=== PATIENT | male | born 1975 | race Caucasian/White ===

== ENCOUNTER 2021-12-31 11:59 | Outpatient (REF) | payer MEDICARE, MEDICAID, SELFPAY ==
--- NOTE | ~2021-12-31 | XR_ITS ---
EXAMINATION: XR LUMBOSACRAL SPINE CLINICAL INFORMATION: Pain COMPARISON: Previous lumbar spine MRI most recent 2007 TECHNIQUE: Three views of the lumbosacral spine. FINDINGS: There is spondylolysis and spondylolisthesis at L5-S1 that appears unchanged. There is a mild to moderate compression fracture of the L1 vertebral body that appears unchanged. There may be an old mild T12 vertebral body compression fracture that appears unchanged as well. No acute fracture or dislocation is seen. There is degenerative disc disease at L5-S1. There is lower lumbar spine facet arthritis. XR/XR lumbar spine 2-3V IMPRESSION: Old L5-S1 spondylolysis, spondylolisthesis and degenerative disc disease similar to previous MRI. Old mild to moderate L1 and mild T12 vertebral body compression fractures. Lower lumbar spine facet arthritis.
[2021-12-31 13:43] LABS: Hematocrit 42.1 % (42.0-52.0); Hemoglobin 14.2 g/dl (14.0-18.0); Mean Corpuscular HGB Conc 33.7 g/dl (31.0-36.0); Mean Corpuscular Hemoglobin 30.9 pg (27.0-33.0); Mean Corpuscular Volume 91.7 fL (80.0-98.0); Mean Platelet Volume 10.9 fL (9.4-12.4); Platelet Count 256 X10*3/uL (160-400); Red Blood Count 4.59 X10*6/uL (4.60-5.80); Red Cell Distribution Width 12.8 % (11.0-16.0); White Blood Count 5.5 X10*3/uL (4.8-10.8)
[2021-12-31 13:52] LABS: Estimated Average Glucose 114 mg/dL; Hemoglobin A1c % 5.6 %
[2021-12-31 14:05] LABS: Alanine Aminotransferase 40 U/L (0-40); Albumin Level 4.6 g/dL (3.5-5.0); Alkaline Phosphatase 64 U/L (39-117); Anion Gap 12 (12-20); Aspartate Amino Transferase 19 U/L (5-37); Bilirubin Total 1.2 mg/dL (0.0-1.0); Blood Urea Nitrogen 13 mg/dL (9-16); Calcium 9.6 mg/dL (8.4-10.2); Carbon Dioxide 28 mmol/L (22-29); Chloride 104 mmol/L (96-108); Cholesterol 175 mg/dL; Estimated Glomerular Filt Rate > 60; Glucose Fasting 109 mg/dL (60-99); HDL Cholesterol 34 mg/dL; LDL Cholesterol Calculated 123 mg/dl; Potassium 4.2 mmol/L (3.3-5.1); Sodium 140 mmol/L (135-145); Total Protein 7.4 g/dL (6.5-8.0); Triglycerides 92 mg/dL
[2021-12-31 14:19] LABS: TSH reflex Free T4 1.43 uIU/mL (0.32-4.0)
== END 2021-12-31 12:00 | disposition home or self-care (01) ==
LOC: HO.LAB 11:59
PROVIDERS: PCP Physician Assistant; Visit Provider Physician Assistant
DX: M54.50 Low back pain, unspecified (principal); Z13.29 Encounter for screening for other suspected endocrine disorder; Z13.1 Encounter for screening for diabetes mellitus; Z13.220 Encounter for screening for lipoid disorders
CPT/HCPCS: 36415; 72100; 80053; 80061; 83036; 84443; 85027

== ENCOUNTER 2023-05-01 08:29 | Emergency (ER) | payer OTHER, SELFPAY ==
--- NOTE | ~2023-05-01 | XR_ITS ---
EXAMINATION: XR FOOT, RIGHT CLINICAL INFORMATION: Right foot injury. Pain. COMPARISON: None available. TECHNIQUE: AP, lateral, and oblique views of the right foot. FINDINGS: No displaced fracture. No dislocation. No joint space narrowing. Tiny marginal osteophytes at the 1st metatarsophalangeal joint and hallux sesamoids. No osseous erosion. No abnormal soft tissue calcification. Bone island within the distal tibia. XR/XR foot RT min 3V IMPRESSION: 1. No displaced fracture or dislocation. 2. Minimal degenerative arthritis at the 1st metatarsophalangeal joint and hallux sesamoids.
[2023-05-01 08:37] VITALS: BP 129/83; PULSE 84; RESP 16; TEMP 36.9; O2SAT 95; BMI 44.3
--- NOTE | 2023-05-01 08:43 | ED_ITS ---
HPI - Extremity Injury (Lower) General Chief Complaint: Extremity Injury, Lower Stated Complaint: R foot injury Time Seen by Provider: 05/01/23 08:38 Source: patient Mode of arrival: ambulatory Limitations: no limitations History of Present Illness HPI Narrative: 48 yo male with history of GERD here with complaints of right foot/heel pain after slamming his foot down on the ground last evening. Pain with WB. No weakness, numbness, tingling. Related Data Previous Rx's Medication Instructions Recorded omeprazole 20 mg capsule,delayed 20 mg PO DAILY #90 caps 11/06/22 release Allergies Allergy/AdvReac Type Severity Reaction Status Date / Time No Known Allergies Allergy Verified 11/18/22 11:16 [No Known Allergies*] Review of Systems Review of Systems: Yes all other systems are reviewed and are negative Constitutional: Constitutional: Reports no additional constitutional complaints, Denies body ache(s), Denies chills, Denies fever(s), Denies headache(s) and Denies weakness Eyes: Eyes: Reports no additional eye complaints and Denies change in vision ENT: Reports system reviewed and no additional complaints, except as documented, Denies dizziness, Denies headache(s), Denies nasal congestion, Denies nasal discharge and Denies neck pain Cardiovascular: Cardiovascular: Reports no additional cardiovascular complaints, Denies chest pain, Denies leg edema and Denies dyspnea Respiratory: Respiratory: Reports no additional respiratory complaints, Denies cough and Denies dyspnea Gastrointestinal: Gastrointestinal: Reports no additional gastrointestinal complaints, Denies abdominal pain, Denies diarrhea, Denies nausea and Denies vomiting Genitourinary: Genitourinary: Denies urinary incontinence Musculoskeletal: Musculoskeletal: Reports no additional musculoskeletal complaints, Denies back pain, Reports arthralgias, Reports joint swelling, Denies neck pain, Denies numbness and Denies tingling Integumentary/Breasts: Skin/Breast: Reports system reviewed and no additional complaints, except as docu and Denies rash Neurologic: Reports system reviewed and no additional complaints, except as documented, Denies Abnormal speech present, Denies dizziness, Denies headache(s), Denies numbness, Denies tingling and Denies weakness PMFSH Past Medical History Attestation statement: The following information was validated with the patient. Source: old records reviewed and nursing notes reviewed Surgical History History of lumbar fusion Family History Family History Father OCD (obsessive compulsive disorder) History of ETOH abuse Mother Heart murmur, aortic Brother In good health Daughter In good health Social History Social History Housing: Apartment Alcohol intake: never Patient Tobacco Use Status: Never used Tobacco e-Cigarette/Vaping Use: Never Used Second Hand Smoke Exposure: No Advance Directives: No Advance Directives Information Provided: Yes service: No Current occupational status: disabled Cognitive needs: No Hearing needs: No Vision needs: No Physical Exam Vital Signs: Vital Signs: Last Vital Signs Temp 98.4 F 05/01/23 08:37 Pulse 84 05/01/23 08:37 Resp 16 05/01/23 08:37 BP 129/83 05/01/23 08:37 Pulse Ox 95 05/01/23 08:37 O2 Del Method Room Air 05/01/23 08:37 BMI result Body Mass Index 44.3 Const: General: cooperative, healthy appearing, comfortable and no acute distress Orientation/consciousness: patient oriented x3 Limitations: no limitations HEENT: Head: Yes normal to inspection Ears: hearing grossly normal bilaterally General nose exam: Normal external nose present Face and sinus: Yes normal facial exam Mouth: Normal oral and palatal mucosa present Throat: Yes posterior oropharynx normal Eyes: General: appearance normal, both eyes and all related structures Pupils: Equal, round and reactive pupils present Neck: Neck: Yes normal visual inspection Chest: Chest palpation & inspection: normal inspection of the chest Resp: Effort & Inspection: normal respiratory effort Auscultation: clear to auscultation bilaterally Cardio: Rate: regular rate Rhythm: regular rhythm Peripheral pulses: Peripheral pulses 2+ throughout GI: Inspection: Yes normal to inspection Palpation (GI): Soft to palpation and nontender Auscultation: normal bowel sounds Back/Spine/Pelvis: Thoracic/Lumbar Spine: thoracic and lumbar spine normal to inspection Skin: General skin exam: no rashes or lesions noted Neuro: General: patient oriented x3, no focal motor deficits and normal sensation to monofilament Cranial nerves: Yes Equal, round and reactive pupils present Cognition (Neuro): normal cognition Speech: No Abnormal speech present Gait exam (Neuro): Normal gait present Motor exam (neuro): 5/5 motor strength present throughout Extrem: Other: Pain on palpation over right heel. No swelling/ecchymosis. FROM of the foot/ankle right side. No posterior calf pain. Negative almean test. Normal sensation of the foot. 2+ DP/PT pulses General: Yes normal to inspection Course Course Course Narrative: X-ray shows no bony abnormality. Likely contusion. Recommend RICE, supportive care at home. He should return for worsening symptoms/signs. Comfortable with plan for discharge home. Medical Decision Making Medical Decision Making [facility] Narrative: 48 yo male here with complaints of right heel pain after slamming his foot on the ground last evening now pain with WB Will check x-rays Differential Diagnosis Differential Diagnoses: The differential diagnosis associated with the presentation includes contusion, fracture Independent Interpretation I performed an independent interpretation of an: Plain X-Ray Interpretation: I indepedentely reviewed the x-ray and agree with the rad report Radiology Impression Discussion of test interpretation with radiology: I have reviewed the radiologist's reading. Radiologist Impression: [place] [id number] XRay Report Signed Patient: Compa Cantrell MR#: [id number] : 1975 Acct:[id number] Age/Sex: 48 / M ADM Date: 05/01/23 Loc: HO.ED Attending Dr: Ordering Physician: Stephani Pennington MD Date of Service: 05/01/23 Procedure(s): XR foot RT min 3V Accession Number(s): [id number] cc: Stephani Pennington MD~ EXAMINATION: XR FOOT, RIGHT CLINICAL INFORMATION: Right foot injury. Pain.? COMPARISON: None available.? TECHNIQUE: AP, lateral, and oblique views of the right foot. FINDINGS: No displaced fracture. No dislocation. No joint space narrowing. Tiny marginal osteophytes at the 1st metatarsophalangeal joint and hallux sesamoids. No osseous erosion. No abnormal soft tissue calcification. Bone island within the distal tibia.? XR/XR foot RT min 3V IMPRESSION: 1. No displaced fracture or dislocation. 2. Minimal degenerative arthritis at the 1st metatarsophalangeal joint and hallux sesamoids. Procedures Orthopedic Splinting/Casting Injury #1: Side: right Upper Extremity Immobilizer: Jude wrap Other Orthopedic Equipment: crutches Discharge Plan Discharge Clinical Impression: Contusion of foot, right Patient Disposition: Home, Self-Care Instructions: Foot Contusion (ED) Additional Instructions: Ice to the area Elevation Jude wrap, crutches as needed Motrin or tylenol for pain as needed Prescriptions: No Action omeprazole 20 mg capsule,delayed release(DR/EC) 20 mg PO DAILY Qty: 90 2RF Referrals: Maxime Frias PA-C [Primary Care Provider] - 10 days Interventions: ED Discharge Assessment Last Done: 05/01/23 09:58 Discharge Date/Time: 05/01/23 09:58
--- NOTE | 2023-05-01 09:58 | PC.NURSE ---
pt cleared for discharge, maureen wrap and crutches given as ordered. discharge instructions reviewed with pt.
== END 2023-05-01 09:58 | disposition home or self-care (01) ==
PROVIDERS: Emergency Provider Student in an Organized Health Care Education/Training Program; PCP Physician Assistant
DX: S90.31XA Contusion of right foot, initial encounter (principal); M79.671 Pain in right foot; X58.XXXA Exposure to other specified factors, initial encounter; Y93.9 Activity, unspecified; Y92.9 Unspecified place or not applicable; Y99.9 Unspecified external cause status
CPT/HCPCS: 29515; 73630; 99282; 99283

== ENCOUNTER 2023-05-03 13:30 | Outpatient (AMB) | payer OTHER, SELFPAY ==
[2023-05-03 13:32] VITALS: BP 116/80; PULSE 85; O2SAT 95; BMI 36.3
--- NOTE | 2023-05-03 13:32 | AM.OFFVISMDC ---
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 Patient has a past medical history significant for GERD, obesity, history of seizure-like activity. Today we discussed the [place] of care was given a MOLST form. Patient is interested in getting colon cancer screening with colonoscopy. Laboratory Tests 12/31/21 12/31/21 12:28 12:28 Fasting Glucose 109 H Hemoglobin A1c % 5.6 Cholesterol 175 LDL Cholesterol, C alc 123 HPI Comments History of Present Illness Details reviewed past medical history- yes reviewed surgical / hospitalization history- yes reviewed current medications- yes reviewed family history- yes home safety throw rugs? grab bars? raised toilet seat? working smoke detectors? activities of daily living difficulty bathing or showering? difficulty dressing? difficulty using the toilet? difficulty getting in and out of bed? difficulty walking? receives help from other person's with any of the above tasks? instrumental activities of daily living uses telephone - gets to place out of walking distance- go shopping for groceries- repairs own meals- does own minor home maintenance- does own laundry- does own housework- manages own money- currently takes medication- end of life planning discussed advanced directives- yes advanced directives on file? discussed wishes expressed in advanced directives. fall risk have you had any falls with injuries in the past year? have you had 2 or more falls in the past year? fall risk assessment: [facility] Surgical History History of lumbar fusion Family History Father OCD (obsessive compulsive disorder) History of ETOH abuse Mother Heart murmur, aortic Brother In good health Daughter In good health Social History Housing: Apartment Alcohol intake: never Patient Tobacco Use Status: Never used Tobacco e-Cigarette/Vaping Use: Never Used Second Hand Smoke Exposure: No service: No Current occupational status: disabled Cognitive needs: No Hearing needs: No Vision needs: No Questionnaire Medicare Wellness Checkup What gender do you identify with?: male (48) During the past 4 weeks, how much have you been bothered by emotional problems such as feeling anxious, depressed, irritable, sad or downhearted, and blue?: not at all During the past 4 weeks, has your physical & emotional health limited your social activities with family, friends, neighbors, or groups?: not at all During the past 4 weeks, how much bodily pain have you generally had?: no pain During the past 4 weeks, was someone available to help you if you needed & wanted help?: no, not at all During the past 4 weeks, what was the hardest physical activity you could do for at least 2 minutes?: moderate Can you get to places out of walking distance without help? (For eg., can you travel alone on buses, taxis or drive your car?): Yes Can you go shopping for groceries or clothes without someone's help?: Yes Can you prepare your own meals?: Yes Can you do your housework without help?: Yes Because of any health problems, do you need the help of another person with your personal care needs such as eating, bathing, dressing or getting around the house?: No Can you handle your own money without help?: Yes During the past 4 weeks, how would you rate your health in general?: fair During the past 4 weeks how have things been going for you?: pretty well Are you having difficulties driving your car?: no Do you always fasten your seat belt when you are in a car?: yes, sometimes During past 4 weeks, have you been bothered by the following: never: Falling or dizzy when standing up, Sexual problems?, Trouble eating well?, Teeth or denture problems? and Problems using the telephone? and sometimes: Tiredness or fatigue? Have you fallen 2 or more times in the past year?: Yes Are you afraid of falling?: No Are you a smoker?: no During the past 4 weeks, how many drinks of wine, beer, or other alcoholic beverages did you have?: no alcohol at all Do you exercise for about 20 minutes 3 or more times a week?: yes, most of the time Have you been given information to help with the following?: yes: Hazards in your house that might hurt you? and yes: Keeping track of your medications? How often do you have trouble taking medicines the way you have been told to take them?: I always take medicine as prescribed How confident are you that you can control & manage most of your health problems?: very confident What is your race?: White Mini Mental State Exam (MMSE) Orientation What is the (year) (season) (date) (day) (month)?: year and season Where are we (state) (county) (town or city) (hospital) (floor)?: town or city Score Score: 3 Activity of Daily Living Bathing - sponge bath, tub bath or shower: receives no assistance (gets in/out by self, if usual bathing means Dressing - getting clothes from closets & drawers, including inner/outer garments & fasteners.: gets clothes & gets completely dressed without help Toileting - going to the 'toilet room' for urine/bowel elimination & cleaning self/arranging clothes: goes to toilet room, cleans self, arranges clothes without help Transfer: moves in & out of bed and chair without help (may use support object) Continence: controls urination/bowel movements completely by self Feeding: feeds self without help Total Score: 0 Information obtained from: patient Using telephone: independent Traveling: independent Shopping: independent Preparing meals: independent Housework: independent Taking medicine: independent Managing money: independent PHQ-9 Over the last 2 weeks, how often have you been bothered by any of the following problems? 1. Little interest or pleasure in doing things: not at all 2. Feeling down, depressed, or hopeless: not at all 3. Trouble falling or staying asleep, or sleeping too much: not at all 4. Feeling tired or having little energy: not at all 5. Poor appetite or overeating: not at all 6. Feeling bad about yourself - or that you are a failure or have let yourself or your family down: not at all 7. Trouble concentrating on things, such as reading the newspaper or watching television: not at all 8. Moving or speaking so slowly that other people could have noticed. Or the opposite - being so fidgety or restless that you have been moving around a lot more than usual: not at all 9. Thoughts that you would be better off or of hurting yourself in some way: not at all Total score: 0 Depression Screening Interpretation: Negative 76406 - PHQ-9 Billing: Yes Source: Developed by Drs. Junior Bee, Trinh Quesada, Clifford Hernandez and colleagues, with an educational elmira from [employer]. PHQ-2/PHQ-9 PHQ-2 Over the last 2 weeks, how often have you been bothered by any of the following problems? 1. Little interest or pleasure in doing things: not at all 2. Feeling down, depressed, or hopeless: not at all Total score: 0 If score is 3 or greater, continue 3. Trouble falling or staying asleep, or sleeping too much: not at all 4. Feeling tired or having little energy: not at all 5. Poor appetite or overeating: not at all 6. Feeling bad about yourself - or that you are a failure or have let yourself or your family down: not at all 7. Trouble concentrating on things, such as reading the newspaper or watching television: not at all 8. Moving or speaking so slowly that other people could have noticed. Or the opposite - being so fidgety or restless that you have been moving around a lot more than usual: not at all 9. Thoughts that you would be better off or of hurting yourself in some way: not at all Total score: 0 10. If you checked off any problems, how difficult have those problems made it for you to do your work, take care of things at home, or get along with other people?: not difficult at all 0-4 None-Minimal, 5-9 Mild, 10-14 Moderate, 15-19 Moderately Severe, 20-27 Severe Source: Developed by Drs. Junior Bee, Trinh Quesada, Clifford Hernandez and colleagues, with an educational elmira from [employer]. Thrive Questionnaire Date Thrive assessed: 05/03/23 I am a: Patient What is your living situation today?: I have a steady place to live Within the past 12 months, did the food you bought not last and you didn't have the money to get more?: Never true Within the past 12 months, did you worry whether your food would run out before you got money to buy more?: Never true Do you have trouble paying for medicines?: No Do you have trouble getting transportation to medical appointments?: No Do you have trouble paying your heating and electricity bill?: No Do you have trouble taking care of your child, family member or friend?: No Do you have trouble with day-to-day activities such as bathing, preparing meals, shopping, managing finances, etc.?: No Are you currently unemployed and looking for a job?: No Are you interested in more education?: No Please select the resources that you would like help with: None Currently or been in a relationship where the following occur: no concerns reported ANI-7 AMB Questionnaire ANI-7 Date ANI - 7 assessed: 05/03/23 Feeling nervous, anxious, or on edge: 0 = Not at all Not being able to stop or control worryin = Not at all Worrying too much about different things: 0 = Not at all Trouble relaxin = Not at all Being so restless that it is hard to sit still: 0 = Not at all Becoming easily annoyed or irritable: 0 = Not at all Feeling afraid as if something awful might happen: 0 = Not at all Total ANI-7 score (0-4 normal; 5-9 mild; 10-14 moderate; 15-21 severe): 0 Source: Developed by Drs. Junior Bee, Trinh Quesada, Clifford Hernandez and colleagues, with an educational elmira from [employer]. ANI-7 Assessment Billing ANI-7 Assessment Tool: ANI-7 Assessment 19432 Physical Exam Vital Signs: Oxygen Delivery Method Room Air 05/03/23 13:32 BMI result Body Mass Index 36.3 HEENT Other: hearing screening whisper test- pass Eyes Other: vision screening- Other: urinary incontinence? no Neuro Other: balance Romberg- normal tandem walk test- able walk-in turned test- able rise from sit to stand- within 2 seconds Assessment & Plan Assessment & Plan (1) Encounter for annual wellness visit (AWV) in Medicare patient: Code(s): Z00.00 - Encounter for general adult medical examination without abnormal findings (2) Colon cancer screening: Code(s): Z12.11 - Encounter for screening for malignant neoplasm of colon Plan: Willing to do colonoscopy Orders: Referrals Gastroenterology Referral Z12.11 - Encounter for screening for malignant neoplasm of colon Quality Reporting (2019) Depression/Bipolar (159/160/161/177) PHQ-9: Total score: 0 Coding Level of Care Code Medicare First (G0438) Diagnoses Encounter for annual wellness visit (AWV) in Medicare patient Z00.00 Colon cancer screening Z12.11 CPT Codes Advance Care Planning - Time spent: 1-15 minutes, not on file ([id number]) Additional Codes ANI-7 Assessment Billing - ANI-7 Assessment Tool: ANI-7 Assessment 51252 ([id number]) Advance Care Planning Advance Care Planning discussion: Declined forms Time spent: 1-15 minutes, not on file
== END 2023-05-03 14:09 | disposition home or self-care (01) ==
PROVIDERS: Visit Provider Physician Assistant
DX: Z00.00 Encounter for general adult medical examination without abnormal findings (principal); Z12.11 Encounter for screening for malignant neoplasm of colon; Z71.89 Other specified counseling
CPT/HCPCS: 1124F; G0438

== ENCOUNTER 2023-08-10 13:45 | Outpatient (AMB) | payer OTHER, MEDICAID, SELFPAY ==
--- NOTE | 2023-08-10 13:59 | A.OFFPC_ITS ---
Vital Signs 08/10/23 14:01 Height 5 ft 3 in Weight 208 lb 6 oz BMI 36.9 BP 122/84 Blood Pressure Location Lt brachial Position Sitting Pulse 90 Pulse Source Pulse Oximeter Pulse Oximetry (%) 98 Oxygen Delivery Method Room Air Intake Visit Reasons: 3 month f/u Intake Note: Pt is here for 3 month routine F/U. Surgical Dental Assistant Required: No Accompanied by: Daughter Allergies No Known Allergies [No Known Allergies*] Allergy (Verified 08/10/23 14:06) Medication List - Last Reconciled 08/10/23 by Maxime Frias PA-C omeprazole 20 mg PO DAILY Tobacco use date assessed: 11/18/22 Dental Screening Dental Screen Date: 08/10/23 Did you have a dental visit in the last 12 months?: No Did you have a dental problem in the last 6 months where you did not have access to dental care?: No Was dental information given to patient?: Patient declined HPI 3 month f/u HPI Details Patient is a 48-year-old male here today for follow-up visit. Patient has a past medical history significant for GERD and generalized anxiety disorder. .. GERD: Patient's GERD symptoms have been more evident at a slightly and has been taking more omeprazole that prescribed. Will increase his dose of omeprazole 40 mg.. . Tremor: Has had essential tremor over the last several years. Has use propanolol in the past that did settle down his tremor and would like a refill on this. He was referred to neurology though has failed to make an appointment. [facility] Surgical History History of lumbar fusion Family History Father OCD (obsessive compulsive disorder) History of ETOH abuse Mother Heart murmur, aortic Brother In good health Daughter In good health Social History Housing: Apartment Alcohol intake: never Patient Tobacco Use Status: Never used Tobacco e-Cigarette/Vaping Use: Never Used Second Hand Smoke Exposure: No service: No Current occupational status: disabled Cognitive needs: No Hearing needs: No Vision needs: No Questionnaire Thrive Questionnaire Date Thrive assessed: 05/03/23 ANI-7 AMB Questionnaire ANI-7 Date ANI - 7 assessed: 05/03/23 Source: Developed by Drs. Junior Bee, Trinh Quesada, Clifford Hernandez and colleagues, with an educational elmira from [employer]. Review of Systems Const Denies headache(s) Eyes Denies loss of vision ENT Denies vertigo, Denies dizziness, Denies headache(s) and Denies sore throat Card Denies chest pain, Denies leg edema and Denies lightheadedness Resp Denies cough, Denies hemoptysis and Denies wheezing GI Denies abdominal pain, Denies melena, Denies constipation, Denies diarrhea and Denies vomiting Denies dysuria, Denies urinary frequency and Denies urinary urgency Musc Denies arthralgias, Denies joint swelling, Denies numbness and Denies tingling Neuro Denies Abnormal speech present, Denies behavioral changes, Denies vertigo, Denies dizziness, Denies headache(s), Denies loss of vision, Denies memory loss, Denies numbness and Denies tingling Psych Denies anxiety, Denies behavioral changes, Denies depression, Denies memory loss and Denies panic attacks Cedric/Lymph Denies easy bleeding and Denies easy bruising Aller/Immun Denies wheezing Physical exam (Primary Care) Vital Signs: Last Vital Signs Pulse 90 08/10/23 14:01 BP 122/84 08/10/23 14:01 Pulse Ox 98 08/10/23 14:01 Oxygen Delivery Method Room Air 08/10/23 14:01 BMI result Body Mass Index 36.9 Tobacco/Smoking Status: Tobacco use Status Tobacco use date assessed 11/18/22 08/10/23 14:00 Patient Tobacco Use Status Never used Tobacco 08/10/23 14:00 e-Cigarette/Vaping Use Never Used 08/10/23 14:00 Thrive Assessment: Date of Thrive Assessment Date Thrive assessed 05/03/23 08/10/23 14:00 Const General: healthy appearing, no acute distress, alert and awake Nutritional Appearance: well nourished Orientation/consciousness: oriented to person, oriented to place and oriented to time HENMT Ears: TM's normal bilaterally General nose exam: Normal nasal mucous membranes and turbinates present Eyes Conjunctivae: conjunctivae normal Sclerae: sclerae normal Pupils: Equal, round and reactive pupils present Neck Neck: Yes no lymphadenopathy and Yes no JVD Thyroid: Thyroid normal Carotids: no bruits Resp Effort & Inspection: normal respiratory effort and not tachypneic Auscultation: no crackles, no rales, no rhonchi and no wheezes Cardio Rate: regular rate Rhythm: regular rhythm Heart sounds: no murmurs and normal S1 and S2 GI Palpation (GI): Soft to palpation, nontender, no hepatomegaly and no splenomegaly Auscultation: normal bowel sounds Skin General skin exam: no rashes or lesions noted and dry skin Neuro General: oriented to person, oriented to place and oriented to time Cranial nerves: Yes Equal, round and reactive pupils present Speech: No Abnormal speech present Gait exam (Neuro): Normal gait present Motor exam (neuro): no tremor noted Extrem Right upper extremity: full ROM Left upper extremity: full ROM Right lower extremity: full ROM; no edema Left lower extremity: full ROM; no edema Psych Mental Status: mental status grossly normal Speech and movement: Normal speech and movement present Affect: normal affect Attitude: cooperative Thought process: Normal thought process present Assessment and Plan Assessment & Plan (1) GERD (gastroesophageal reflux disease): Code(s): K21.9 - Gastro-esophageal reflux disease without esophagitis Qualifiers: Esophagitis presence: without esophagitis Qualified Code(s): K21.9 - Gastro-esophageal reflux disease without esophagitis Plan: Reports his GERD symptoms have been at evident even with the use of omeprazole 20 mg. Will increase his dose of omeprazole to 40 mg. Advised him to follow-up with GI about his colonoscopy and perhaps getting an endoscopy. Advised on avoiding culprit foods. He otherwise denies any smoking drinking (2) Tremor: Code(s): R25.1 - Tremor, unspecified Plan: Has noted in the central tremor to which propanolol has helped him in the past. He would like a refill on this medication. (3) Screening for diabetes mellitus (DM): Code(s): Z13.1 - Encounter for screening for diabetes mellitus Orders: Orders Comprehensive [place]. Panel Fast Today Z13.1 - Encounter for screening for diabetes mellitus Complete Blood Count no Diff Today K21.9 - Gastro-esophageal reflux disease without esophagitis Prostate Specific Antigen Scr Today K21.9 - Gastro-esophageal reflux disease without esophagitis, Z12.5 - Encounter for screening for malignant neoplasm of prostate Medications: New omeprazole 40 mg PO DAILY 30 days 30 caps 3RF K21.9 - Gastro-esophageal reflux disease without esophagitis propranolol 20 mg PO BID 60 tabs 1RF 30 days R25.1 - Tremor, unspecified Discontinued omeprazole Discontinued Reason: Doctor's Order 20 mg PO DAILY 90 caps 2RF Coding Level of Care Code Est Pt Level 4 (89613) Diagnoses Gastroesophageal reflux disease without esophagitis K21.9 Esophagitis presence: without esophagitis Tremor R25.1 Screening for diabetes mellitus (DM) Z13.1
[2023-08-10 14:01] VITALS: BP 122/84; PULSE 90; O2SAT 98; BMI 36.9
== END 2023-08-10 14:20 | disposition home or self-care (01) ==
PROVIDERS: PCP Physician Assistant; Visit Provider Physician Assistant
DX: K21.9 Gastro-esophageal reflux disease without esophagitis (principal); R25.1 Tremor, unspecified; Z13.1 Encounter for screening for diabetes mellitus
CPT/HCPCS: 99214

== ENCOUNTER 2023-08-31 10:51 | Outpatient (REF) | payer OTHER, SELFPAY ==
[2023-08-31 11:42] LABS: Hematocrit 42.8 % (42.0-52.0); Hemoglobin 14.7 g/dl (14.0-18.0); Mean Corpuscular HGB Conc 34.3 g/dl (31.0-36.0); Mean Corpuscular Hemoglobin 30.8 pg (27.0-33.0); Mean Corpuscular Volume 89.5 fL (80.0-98.0); Mean Platelet Volume 10.6 fL (9.4-12.4); Platelet Count 258 X10*3/uL (160-400); Red Blood Count 4.78 X10*6/uL (4.60-5.80); Red Cell Distribution Width 12.7 % (11.0-16.0); White Blood Count 6.1 X10*3/uL (4.8-10.8)
[2023-08-31 12:18] LABS: Alanine Aminotransferase 29 U/L (0-40); Albumin Level 4.4 g/dL (3.5-5.0); Alkaline Phosphatase 74 U/L (39-117); Anion Gap 8 (12-20); Aspartate Amino Transferase 18 U/L (5-37); Bilirubin Total 0.7 mg/dL (0.0-1.0); Blood Urea Nitrogen 6 mg/dL (9-16); Calcium 9.4 mg/dL (8.4-10.2); Carbon Dioxide 30 mmol/L (22-29); Chloride 106 mmol/L (96-108); Estimated Glomerular Filt Rate > 60; Glucose Fasting 109 mg/dL (60-99); Potassium 4.3 mmol/L (3.3-5.1); Sodium 140 mmol/L (135-145); Total Protein 7.2 g/dL (6.5-8.0)
[2023-08-31 12:30] LABS: Prostate Specific Antigen Scr 0.46 ng/mL (<0.05-4.0)
== END 2023-08-31 10:52 | disposition home or self-care (01) ==
LOC: HO.LAB 10:51
PROVIDERS: PCP Physician Assistant; Visit Provider Physician Assistant
DX: K21.9 Gastro-esophageal reflux disease without esophagitis (principal); Z13.1 Encounter for screening for diabetes mellitus; Z12.5 Encounter for screening for malignant neoplasm of prostate
CPT/HCPCS: 36415; 80053; 84153; 85027

== ENCOUNTER 2023-12-20 17:31 | Emergency (ER) | payer OTHER, SELFPAY ==
--- NOTE | 2023-12-20 | ECG_ITS ---
Test Reason : CHEST PAIN Blood Pressure : / mmHG Vent. Rate : 088 BPM Atrial Rate : 088 BPM P-R Int : 128 ms QRS Dur : 084 ms QT Int : 344 ms P-R-T Axes : 056 036 017 degrees QTc Int : 416 ms Normal sinus rhythm Normal ECG When compared with ECG of 30-MAY-2019 12:04, No significant change was found Referred By: Generic ED Physician Electronically Signed By:Wesley Truong
--- NOTE | ~2023-12-20 | XR_ITS ---
EXAMINATION: XR CHEST CLINICAL INFORMATION: Pain. COMPARISON: Chest radiograph 11/12/2010. TECHNIQUE: 2 views of the chest were obtained. FINDINGS: Normal heart size. Low lung volumes with mild diffuse bronchovascular crowding. No focal consolidation, pleural effusion or pneumothorax. No evidence of pulmonary edema. No acute osseous findings. XR/XR chest 2V IMPRESSION: Low lung volumes with bronchovascular crowding. No focal consolidation, pleural effusion or pneumothorax.
--- NOTE | ~2023-12-20 | CT_ITS ---
EXAMINATION: CT CERVICAL SPINE WITHOUT CONTRAST CLINICAL INFORMATION: Radiculopathy. COMPARISON: No similar priors. TECHNIQUE: Contiguous axial imaging was performed of the cervical spine without intravenous administration of contrast. Coronal and sagittal reformats were obtained at the acquisition workstation. This CT examination was performed using dose optimization techniques as appropriate, variously including the following: *Automated exposure control *Adjustment of mA and/or kV according to patient size (this includes techniques or standardized protocols for targeted exams where dose is matched to indication/reason for exam; i.e. extremities or head) *Use of iterative reconstruction technique DLP: 510 mGy-cm FINDINGS: The atlantooccipital and atlantoaxial articulations remain well aligned. Straightening of the normal cervical lordosis. Trace anterolisthesis of C4 on C5. Moderate to severe intervertebral disc height loss at C3-C4. Moderate intervertebral disc height loss at C5-C6 and C6-C7. Prominent posterior osteophyte complexes from C3 through C7 indenting upon the anterior spinal canal. Moderate multilevel uncovertebral/facet hypertrophy leading to various degrees of neural foraminal encroachment more prominent from C3 through C5. Moderate central spinal canal stenosis at the level C3-C4. Evaluation of the nerve roots and central spinal canal is limited in this noncontrast CT. Similarly, evaluation of disc pathology is limited. There is no prevertebral soft tissue swelling. The thyroid gland and remaining cervical soft tissues are normal in appearance. The lung apices demonstrate no abnormalities. CT/CT cervical spine wo IV con IMPRESSION: 1. No evidence of acute compression deformity or traumatic subluxation. 2. Straightening of the cervical lordosis is nonspecific could be related with patient's positioning or muscular spasm. 3. Moderate to severe multilevel cervical spondylosis with various degrees of neural foraminal encroachment more prominent from C3 through C5. Moderate central canal stenosis at C3-C4. Evaluation of nerve root impingement, and spinal cord signal abnormalities is limited, for which correlation with an MRI of the cervical spine could be obtained as clinically warranted.
[2023-12-20 18:04] VITALS: BP 142/98; PULSE 89; RESP 20; O2SAT 100; BMI 27.2
--- NOTE | 2023-12-20 18:06 | ED_ITS ---
HPI - General Adult General Chief complaint: Chest Pain Stated complaint: chest pain w/pain down right arm Time Seen by Provider: 12/20/23 21:55 Related Data Previous Rx's Medication Instructions Recorded omeprazole 40 mg capsule,delayed 40 mg PO DAILY 30 days #30 caps 11/10/23 release propranolol 20 mg tablet 20 mg PO BID 30 days #60 tabs 12/03/23 cyclobenzaprine 10 mg tablet 10 mg PO Q8H #20 tabs 12/20/23 ibuprofen 600 mg tablet 600 mg PO Q6H PRN fever or pain 12/20/23 #30 tabs Allergies Allergy/AdvReac Type Severity Reaction Status Date / Time No Known Allergies Allergy Verified 12/20/23 18:07 [No Known Allergies*] [facility] Past Medical History Surgical History History of lumbar fusion Family History Family History Father OCD (obsessive compulsive disorder) History of ETOH abuse Mother Heart murmur, aortic Brother In good health Daughter In good health Social History Social History Housing: Apartment Unable to assess alcohol history related to: Unknown Alcohol intake: never Patient Tobacco Use Status: Never used Tobacco Smoked in Last 30 Days: No e-Cigarette/Vaping Use: Never Used Second Hand Smoke Exposure: No Use of substances other than those prescribed or required for medical reasons: Unknown Advance Directives: No Advance Directives Information Provided: No service: No Current occupational status: disabled Cognitive needs: No Hearing needs: No Vision needs: No Physical Exam ED Vital Signs: Vital Signs - 24 hr 12/20/23 18:04 12/20/23 20:00 12/20/23 22:41 Temperature 98.3 F 98.1 F Pulse Rate 89 86 81 Respiratory Rate 20 18 18 Blood Pressure 142/98 H 125/82 121/77 Pulse Oximetry 100 96 96 Oxygen Delivery Method Room Air Room Air Room Air BMI result Body Mass Index 27.2 Course Course Course Narrative: RME- 48-year-old male presents for evaluation of chest pain for the last 5 days. Plan for cardiac workup Medical Decision Making Medical Decision Making [facility] Narrative: Patient with cervical radiculopathy CT scan showed moderate central spinal canal stenosis at the level of C3-C4 with diffuse arthritis Differential Diagnosis Differential Diagnoses: The differential diagnosis associated with the presentation includes Cervical radiculopathy/musculoskeletal pain Lab Data MDM Lab Attestation statement: I reviewed the patient's lab results. 12/20/23 19:36 12/20/23 19:35 Labs: Lab Results 12/20/23 12/20/23 Range/Units 19:35 19:36 WBC 8.1 (4.8-10.8) X10*3/uL RBC 4.71 (4.60-5.80) X10*6/uL Hgb 14.9 (14.0-18.0) g/dl Hct 41.9 L (42.0-52.0) % MCV 89.0 (80.0-98.0) fL MCH 31.6 (27.0-33.0) pg MCHC 35.6 (31.0-36.0) g/dl RDW 12.4 (11.0-16.0) % Plt Count 255 (160-400) X10*3/uL MPV 10.1 (9.4-12.4) fL Immature Gran % (Auto) 0.1 (0.0-0.4) % Neut % (Auto) 65.0 (45-73) % Lymph % (Auto) 24.3 (20-40) % [place] % (Auto) 6.8 (2-11) % Eos % (Auto) 3.2 (0-4) % Baso % (Auto) 0.6 (0-2) % Lymph # (Auto) 2.0 (1.2-4.9) X10*3/uL [place] # (Auto) 0.6 (0.1-1.2) X10*3/uL Eos # (Auto) 0.3 (0.0-0.4) X10*3/uL Baso # (Auto) 0.1 (0.0-0.2) X10*3/uL Abs Immat Gran (auto) 0.01 (0.00-0.03) X10*3/uL Absolute Neuts (auto) 5.3 (2.0-8.3) x10*3/uL Absolute Nucleated RBC 0.000 (0.0-0.012) X10*3/uL Nucleated RBC % (auto) 0.0 (0.0-0.2) /100WBC PT 10.8 L (11.1-13.3) SEC INR 0.9 (0.9-1.1) Sodium 139 (135-145) mmol/L Potassium 4.2 (3.3-5.1) mmol/L Chloride 104 (96-108) mmol/L Carbon Dioxide 29 (22-29) mmol/L Anion Gap 10 L (12-20) BUN 14 (9-16) mg/dL Creatinine 1.18 (0.5-1.4) mg/dL Estim Creat Clear Calc 90.5 Estimated GFR > 60 Random Glucose 114 (60-115) mg/dL Calcium 9.1 (8.4-10.2) mg/dL Total Bilirubin 0.5 (0.0-1.0) mg/dL AST 20 (5-37) U/L ALT 29 (0-40) U/L Alkaline Phosphatase 74 (39-117) U/L Troponin I High Sens < 2.7 (<3.5-35.0) ng/L Total Protein 7.3 (6.5-8.0) g/dL Albumin 4.6 (3.5-5.0) g/dL Lipase 41 (8-78) U/L Influenza Type A (PCR) NEGATIVE (Negative) Influenza Type B (PCR) NEGATIVE (Negative) RSV RNA Qual (PCR) NEGATIVE (Negative) SARS-CoV-2 RNA (RT-PCR) NEGATIVE (Negative) Independent Interpretation I performed an independent interpretation of an: EKG and CT Scan Interpretation: Normal sinus rhythm heart rate 88 per minute normal interval normal axis no acute ST T wave changes no acute ischemia Radiology Impression Discussion of test interpretation with radiology: I have reviewed the radiologist's reading. Discharge Plan Discharge Clinical Impression: Cervical radiculopathy Patient Disposition: Home, Self-Care Instructions: Cervical Radiculopathy (ED) Additional Instructions: Follow with your PCP for further evaluation including MRI Follow up with neurologist/ neurosurgeon Ibuprofen for pain, Flexeril for muscle relaxer Prescriptions: New cyclobenzaprine 10 mg tablet 10 mg PO Q8H Qty: 20 0RF ibuprofen 600 mg tablet 600 mg PO Q6H PRN (Reason: fever or pain) Qty: 30 0RF No Action omeprazole 40 mg capsule,delayed release(DR/EC) 40 mg PO DAILY 30 Days Qty: 30 3RF propranolol 20 mg tablet 20 mg PO BID 30 Days Qty: 60 1RF Referrals: Gwen Mendiola [Physician] - 2 weeks
[2023-12-20 19:41] LABS: MANUAL DIFF FLAG NO
[2023-12-20 19:42] LABS: Basophils Absolute Auto 0.1 X10*3/uL (0.0-0.2); Basophils Percent Auto 0.6 % (0-2); Eosinophils Absolute Auto 0.3 X10*3/uL (0.0-0.4); Eosinophils Percent Auto 3.2 % (0-4); Hematocrit 41.9 % (42.0-52.0); Hemoglobin 14.9 g/dl (14.0-18.0); Imm Gran Abs Auto 0.01 X10*3/uL (0.00-0.03); Imm Gran Pct Auto 0.1 % (0.0-0.4); Lymphocytes Percent Auto 24.3 % (20-40); Mean Corpuscular HGB Conc 35.6 g/dl (31.0-36.0); Mean Corpuscular Hemoglobin 31.6 pg (27.0-33.0); Mean Platelet Volume 10.1 fL (9.4-12.4); Monocytes Absolute Auto 0.6 X10*3/uL (0.1-1.2); Monocytes Percent Auto 6.8 % (2-11); Neutrophils Absolute Auto 5.3 x10*3/uL (2.0-8.3); Platelet Count 255 X10*3/uL (160-400); Red Blood Count 4.71 X10*6/uL (4.60-5.80); Red Cell Distribution Width 12.4 % (11.0-16.0); White Blood Count 8.1 X10*3/uL (4.8-10.8)
[2023-12-20 19:51] LABS: INTERNATIONAL NORM RATIO 0.9 (0.9-1.1); Prothrombin Time 10.8 SEC (11.1-13.3)
[2023-12-20 19:57] LABS: Alanine Aminotransferase 29 U/L (0-40); Albumin Level 4.6 g/dL (3.5-5.0); Alkaline Phosphatase 74 U/L (39-117); Anion Gap 10 (12-20); Aspartate Amino Transferase 20 U/L (5-37); Bilirubin Total 0.5 mg/dL (0.0-1.0); Blood Urea Nitrogen 14 mg/dL (9-16); Calcium 9.1 mg/dL (8.4-10.2); Carbon Dioxide 29 mmol/L (22-29); Chloride 104 mmol/L (96-108); Creatinine Clr Calc Pharmacy 90.5; Estimated Glomerular Filt Rate > 60; Glucose Random 114 mg/dL (60-115); Lipase 41 U/L (8-78); Potassium 4.2 mmol/L (3.3-5.1); Sodium 139 mmol/L (135-145); Total Protein 7.3 g/dL (6.5-8.0)
[2023-12-20 20:00] VITALS: BP 125/82; PULSE 86; RESP 18; TEMP 36.8; O2SAT 96
[2023-12-20 20:22] LABS: Influenza A PCR NEGATIVE (Negative); Influenza B PCR NEGATIVE (Negative); Resp Syncy Virus RNA Qual PCR NEGATIVE (Negative); SARS COV2 PCR INHOUSE NEGATIVE (Negative)
[2023-12-20 20:30] LABS: Troponin-I High Sensitivity < 2.7 ng/L (<3.5-35.0)
--- NOTE | 2023-12-20 22:14 | ED.CHESTPAIN ---
HPI - Chest Pain General Chief Complaint: Chest Pain Stated Complaint: chest pain w/pain down right arm Time Seen by Provider: 12/20/23 21:55 Source: patient Mode of arrival: ambulatory Limitations: no limitations History of Present Illness HPI narrative: Patient complaining of right side of the neck pain radiating to the right arm for last 4 -5 days feel tingling/numbness in right 3rd and 4th finger no weakness no chest pain no history of trauma no shortness of breath no history of coronary artery disease no high blood pressure /diabetes Related Data Previous Rx's Medication Instructions Recorded omeprazole 40 mg capsule,delayed 40 mg PO DAILY 30 days #30 caps 11/10/23 release propranolol 20 mg tablet 20 mg PO BID 30 days #60 tabs 12/03/23 cyclobenzaprine 10 mg tablet 10 mg PO Q8H #20 tabs 12/20/23 ibuprofen 600 mg tablet 600 mg PO Q6H PRN fever or pain 12/20/23 #30 tabs Allergies Allergy/AdvReac Type Severity Reaction Status Date / Time No Known Allergies Allergy Verified 12/20/23 18:07 [No Known Allergies*] Review of Systems Review of Systems: Yes all other systems are reviewed and are negative [facility] Past Medical History Surgical History History of lumbar fusion Family History Family History Father OCD (obsessive compulsive disorder) History of ETOH abuse Mother Heart murmur, aortic Brother In good health Daughter In good health Social History Social History Housing: Apartment Unable to assess alcohol history related to: Unknown Alcohol intake: never Patient Tobacco Use Status: Never used Tobacco Smoked in Last 30 Days: No e-Cigarette/Vaping Use: Never Used Second Hand Smoke Exposure: No Use of substances other than those prescribed or required for medical reasons: Unknown Advance Directives: No Advance Directives Information Provided: No service: No Current occupational status: disabled Cognitive needs: No Hearing needs: No Vision needs: No Physical Exam Vital Signs: Vital Signs: Last Vital Signs Temp 98.1 F 12/20/23 22:41 Pulse 81 12/20/23 22:41 Resp 18 12/20/23 22:41 BP 121/77 12/20/23 22:41 Pulse Ox 96 12/20/23 22:41 O2 Del Method Room Air 12/20/23 22:41 BMI result Body Mass Index 27.2 Appearance: Alert. Oriented X3. No acute distress. Eyes: No pallor or icterus ENT: Pharynx normal. Oral Mucosa moist Neck: Normal inspection. Neck supple. No midline tenderness spasm of the right upper back CVS: Normal heart rate and rhythm. Pulses normal. Respiratory: No respiratory distress. Equal air entry bilateral, no wheezing/rales/rhonchi Abdomen: Soft and nontender. Bowel sounds are present, no mass palpable, no CVA tenderness Skin: Skin warm and dry. Normal skin color. Normal skin turgor. Extremities: No lower extremity edema. No calf tenderness no motor weakness of the hand Neuro: Oriented X 3. No motor deficit. No sensory deficit.No cerebellar signs , cranial nerves II-XII intact Medical Decision Making Medical Decision Making [facility] Narrative: Patient with Cervical radiculopathy without any motor weakness advised to follow with neurosurgeon no signs of acute cord compression no signs of ACS Differential Diagnosis Differential Diagnoses: The differential diagnosis associated with the presentation includes Lab Data [facility] Lab Attestation statement: I reviewed the patient's lab results. 12/20/23 19:36 12/20/23 19:35 Labs: Lab Results 12/20/23 12/20/23 Range/Units 19:35 19:36 WBC 8.1 (4.8-10.8) X10*3/uL RBC 4.71 (4.60-5.80) X10*6/uL Hgb 14.9 (14.0-18.0) g/dl Hct 41.9 L (42.0-52.0) % MCV 89.0 (80.0-98.0) fL MCH 31.6 (27.0-33.0) pg MCHC 35.6 (31.0-36.0) g/dl RDW 12.4 (11.0-16.0) % Plt Count 255 (160-400) X10*3/uL MPV 10.1 (9.4-12.4) fL Immature Gran % (Auto) 0.1 (0.0-0.4) % Neut % (Auto) 65.0 (45-73) % Lymph % (Auto) 24.3 (20-40) % [place] % (Auto) 6.8 (2-11) % Eos % (Auto) 3.2 (0-4) % Baso % (Auto) 0.6 (0-2) % Lymph # (Auto) 2.0 (1.2-4.9) X10*3/uL [place] # (Auto) 0.6 (0.1-1.2) X10*3/uL Eos # (Auto) 0.3 (0.0-0.4) X10*3/uL Baso # (Auto) 0.1 (0.0-0.2) X10*3/uL Abs Immat Gran (auto) 0.01 (0.00-0.03) X10*3/uL Absolute Neuts (auto) 5.3 (2.0-8.3) x10*3/uL Absolute Nucleated RBC 0.000 (0.0-0.012) X10*3/uL Nucleated RBC % (auto) 0.0 (0.0-0.2) /100WBC PT 10.8 L (11.1-13.3) SEC INR 0.9 (0.9-1.1) Sodium 139 (135-145) mmol/L Potassium 4.2 (3.3-5.1) mmol/L Chloride 104 (96-108) mmol/L Carbon Dioxide 29 (22-29) mmol/L Anion Gap 10 L (12-20) BUN 14 (9-16) mg/dL Creatinine 1.18 (0.5-1.4) mg/dL Estim Creat Clear Calc 90.5 Estimated GFR > 60 Random Glucose 114 (60-115) mg/dL Calcium 9.1 (8.4-10.2) mg/dL Total Bilirubin 0.5 (0.0-1.0) mg/dL AST 20 (5-37) U/L ALT 29 (0-40) U/L Alkaline Phosphatase 74 (39-117) U/L Troponin I High Sens < 2.7 (<3.5-35.0) ng/L Total Protein 7.3 (6.5-8.0) g/dL Albumin 4.6 (3.5-5.0) g/dL Lipase 41 (8-78) U/L Influenza Type A (PCR) NEGATIVE (Negative) Influenza Type B (PCR) NEGATIVE (Negative) RSV RNA Qual (PCR) NEGATIVE (Negative) SARS-CoV-2 RNA (RT-PCR) NEGATIVE (Negative) Independent Interpretation I performed an independent interpretation of an: EKG and CT Scan Interpretation: Normal sinus rhythm heart rate 88 beats per minute normal interval normal axis no ST T wave changes no acute ischemia Radiology Impression Discussion of test interpretation with radiology: I have reviewed the radiologist's reading. Discharge Plan Discharge Clinical Impression: Cervical radiculopathy Patient Disposition: Home, Self-Care Instructions: Cervical Radiculopathy (ED) Additional Instructions: Follow with your PCP for further evaluation including MRI Follow up with neurologist/ neurosurgeon Ibuprofen for pain, Flexeril for muscle relaxer Prescriptions: New cyclobenzaprine 10 mg tablet 10 mg PO Q8H Qty: 20 0RF ibuprofen 600 mg tablet 600 mg PO Q6H PRN (Reason: fever or pain) Qty: 30 0RF No Action omeprazole 40 mg capsule,delayed release(DR/EC) 40 mg PO DAILY 30 Days Qty: 30 3RF propranolol 20 mg tablet 20 mg PO BID 30 Days Qty: 60 1RF Referrals: Gwen Mendiola [Physician] - 2 weeks Interventions: ED Discharge Assessment Last Done: 12/21/23 00:24 Discharge Date/Time: 12/21/23 00:25
[2023-12-20 22:41] VITALS: BP 121/77; PULSE 81; RESP 18; TEMP 36.7; O2SAT 96
== END 2023-12-21 00:25 | disposition home or self-care (01) ==
PROVIDERS: Physician Assistant; Emergency Provider Internal Medicine; PCP Physician Assistant
DX: M54.12 Radiculopathy, cervical region (principal); R07.89 Other chest pain; M79.601 Pain in right arm; Z11.52 Encounter for screening for COVID-19; Z20.822 Contact with and (suspected) exposure to COVID-19; Z79.899 Other long term (current) drug therapy
CPT/HCPCS: 0241U; 71046; 72125; 80053; 83690; 84484; 85025; 85610; 93005; 99284; 99285

== ENCOUNTER → 2023-12-20 17:44 | Outpatient (BNV) | payer OTHER, SELFPAY | PROVIDERS: Emergency Provider Internal Medicine; PCP Physician Assistant; Visit Provider Internal Medicine Cardiovascular Disease | DX: R07.9 Chest pain, unspecified (principal) | CPT/HCPCS: 93010 ==

== ENCOUNTER 2023-12-22 15:27 | Outpatient (AMB) | payer OTHER, SELFPAY ==
[2023-12-22 15:32] VITALS: BP 124/80; PULSE 99; RESP 16; O2SAT 97; BMI 27.7
--- NOTE | 2023-12-22 15:32 | MHC.PC.OV ---
Vital Signs 12/22/23 15:32 Height 6 ft 3 in Weight 221 lb 8 oz BMI 27.7 BP 124/80 Blood Pressure Location Lt brachial Position Sitting Respiration 16 Pulse 99 Pulse Source Pulse Oximeter Pulse Oximetry (%) 97 Oxygen Delivery Method Room Air Intake Visit Reasons: pain in chest and back and shoulders Intake Note: Patient is here to follow-up after a visit the emergency department at [facility] on 12/20/23 for Cervical radiculopathy. 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 He was seen at the ER for acute neck pain radiating down into his shoulder into his right hand. He denies any acute injury to his neck or upper back. . CT did showing --> Moderate to severe multilevel cervical spondylosis with various degrees of neural foraminal encroachment more prominent from C3 through C5. Moderate central canal stenosis at C3-C4. Evaluation of nerve root impingement, and spinal cord signal abnormalities is limited, An MRI of his cervical spine was recommended. [facility] Surgical History History of lumbar fusion Family History Father OCD (obsessive compulsive disorder) History of ETOH abuse Mother Heart murmur, aortic Brother In good health Daughter In good health Social History Housing: Apartment Unable to assess alcohol history related to: Unknown Alcohol intake: never Patient Tobacco Use Status: Never used Tobacco e-Cigarette/Vaping Use: Never Used Second Hand Smoke Exposure: No service: No Current occupational status: disabled Cognitive needs: No Hearing needs: No Vision needs: No Questionnaire PHQ-9 Over the last 2 weeks, how often have you been bothered by any of the following problems? 1. Little interest or pleasure in doing things: not at all 2. Feeling down, depressed, or hopeless: not at all 3. Trouble falling or staying asleep, or sleeping too much: not at all 4. Feeling tired or having little energy: not at all 5. Poor appetite or overeating: not at all 6. Feeling bad about yourself - or that you are a failure or have let yourself or your family down: not at all 7. Trouble concentrating on things, such as reading the newspaper or watching television: not at all 8. Moving or speaking so slowly that other people could have noticed. Or the opposite - being so fidgety or restless that you have been moving around a lot more than usual: not at all 9. Thoughts that you would be better off or of hurting yourself in some way: not at all Total score: 0 Depression Screening Interpretation: Negative Depression Screening Done: Yes 13956 - PHQ-9 Billing: Yes Source: Developed by Drs. Junior Bee, Trinh Quesada, Clifford Hernandez and colleagues, with an educational elmira from [employer]. Thrive Questionnaire Date Thrive assessed: 12/22/23 I am a: Patient What is your living situation today?: I have a steady place to live Within the past 12 months, did the food you bought not last and you didn't have the money to get more?: Never true Within the past 12 months, did you worry whether your food would run out before you got money to buy more?: Never true Do you have trouble paying for medicines?: No Do you have trouble getting transportation to medical appointments?: No Do you have trouble paying your heating and electricity bill?: No Do you have trouble taking care of your child, family member or friend?: No Do you have trouble with day-to-day activities such as bathing, preparing meals, shopping, managing finances, etc.?: No Are you currently unemployed and looking for a job?: No Are you interested in more education?: No Please select the resources that you would like help with: None Currently or been in a relationship where the following occur: no concerns reported THRIVE Score: 0 ANI-7 AMB Questionnaire ANI-7 Date ANI - 7 assessed: 05/03/23 Source: Developed by Drs. Junior Bee, Trinh Quesada, Clifford Hernandez and colleagues, with an educational elmira from [employer]. Review of Systems Const Denies headache(s) Eyes Denies loss of vision ENT Denies vertigo, Denies dizziness, Denies headache(s) and Denies sore throat Card Denies chest pain, Denies leg edema and Denies lightheadedness Resp Denies cough, Denies hemoptysis and Denies wheezing GI Denies abdominal pain, Denies melena, Denies constipation, Denies diarrhea and Denies vomiting Denies dysuria, Denies urinary frequency and Denies urinary urgency Musc Denies arthralgias, Denies joint swelling, Denies numbness and Denies tingling Neuro Denies Abnormal speech present, Denies behavioral changes, Denies vertigo, Denies dizziness, Denies headache(s), Denies loss of vision, Denies memory loss, Denies numbness and Denies tingling Psych Denies anxiety, Denies behavioral changes, Denies depression, Denies memory loss and Denies panic attacks Cedric/Lymph Denies easy bleeding and Denies easy bruising Aller/Immun Denies wheezing Physical exam (Primary Care) Vital Signs: Last Vital Signs Pulse 99 12/22/23 15:32 Resp 16 12/22/23 15:32 BP 124/80 12/22/23 15:32 Pulse Ox 97 12/22/23 15:32 Oxygen Delivery Method Room Air 12/22/23 15:32 BMI result Body Mass Index 27.7 Tobacco/Smoking Status: Tobacco use Status Tobacco use date assessed 12/22/23 12/22/23 15:33 Patient Tobacco Use Status Never used Tobacco 12/22/23 15:32 e-Cigarette/Vaping Use Never Used 12/22/23 15:32 PHQ-9: PHQ-9 Score PHQ-9: Total score 0 12/22/23 15:44 Depression Screening Interpretation: Negative Thrive Assessment: Date of Thrive Assessment Date Thrive assessed 12/22/23 12/22/23 15:44 Currently or been in a relationship where the following occur: no concerns reported Const General: healthy appearing, no acute distress, alert and awake Nutritional Appearance: well nourished Orientation/consciousness: oriented to person, oriented to place and oriented to time HENMD Ears: TM's normal bilaterally General nose exam: Normal nasal mucous membranes and turbinates present Eyes Conjunctivae: conjunctivae normal Sclerae: sclerae normal Pupils: Equal, round and reactive pupils present Neck Other: LIMITED RANGE OF MOTION OF THE CERVICAL SPINE DUE TO PAIN AND STIFFNESS. NO NOTABLE NUCHAL RIGIDITY Neck: Yes no lymphadenopathy and Yes no JVD Thyroid: Thyroid normal Carotids: no bruits Resp Effort & Inspection: normal respiratory effort and not tachypneic Auscultation: no crackles, no rales, no rhonchi and no wheezes Cardio Rate: regular rate Rhythm: regular rhythm Heart sounds: no murmurs and normal S1 and S2 GI Palpation (GI): Soft to palpation, nontender, no hepatomegaly and no splenomegaly Auscultation: normal bowel sounds Back/Spine/Pelvis Other: NOTABLE DECREASED RANGE OF MOTION OF THE CERVICAL SPINE DUE TO PAIN AND STIFFNESS. NO NUCHAL RIGIDITY Skin General skin exam: no rashes or lesions noted and dry skin Neuro General: oriented to person, oriented to place and oriented to time Cranial nerves: Yes Equal, round and reactive pupils present Speech: No Abnormal speech present Gait exam (Neuro): Normal gait present Motor exam (neuro): no tremor noted Extrem Other: EQUAL VICE PRESIDENT OF TALENT ACQUISITION STRENGTH OF BOTH HANDS Right upper extremity: full ROM Left upper extremity: full ROM Right lower extremity: full ROM; no edema Left lower extremity: full ROM; no edema Psych Mental Status: mental status grossly normal Speech and movement: Normal speech and movement present Affect: normal affect Attitude: cooperative Thought process: Normal thought process present Assessment and Plan Assessment & Plan (1) Cervical disc disease with myelopathy: Code(s): M50.00 - Cervical disc disorder with myelopathy, unspecified cervical region Plan: As per HPI Patient recently seen at the ER for acute neck pain with radiculopathy down right upper extremity and tingling in his hand. CT of neck showing multilevel disc herniation. MRI cervical spine recommended. Will consider neurosurgeon evaluation after MRI is done. For now his pain management includes ibuprofen and cyclobenzaprine at night. (2) Lumbar spine instability: Code(s): M53.2X6 - Spinal instabilities, lumbar region Plan: Patient does have a history of a lumbar spine fusion. He reports recently noting some lumbar instability. He is afraid that his fusion has has degraded. Will send for MRI of lumbar spine in hopes they can be done at the same time of the cervical spine. Orders: Orders MR lumbar spine wo con Today M53.2X6 - Spinal instabilities, lumbar region Coding Level of Care Code Est Pt Level 4 (59857) Diagnoses Cervical disc disease with myelopathy M50.00 Lumbar spine instability M53.2X6
== END 2023-12-22 16:03 | disposition home or self-care (01) ==
PROVIDERS: PCP Physician Assistant; Visit Provider Physician Assistant
DX: M50.00 Cervical disc disorder with myelopathy, unspecified cervical region (principal); M53.2X6 Spinal instabilities, lumbar region
CPT/HCPCS: 99214

== ENCOUNTER 2024-01-15 10:27 | Emergency (ER) | payer OTHER, SELFPAY ==
[2024-01-15 10:29] VITALS: BP 135/90; PULSE 79; RESP 18; TEMP 36.7; O2SAT 97; BMI 28.2
--- NOTE | 2024-01-15 11:29 | ED_ITS ---
HPI - General Adult General Chief complaint: General Medical Stated complaint: Neck pain Time Seen by Provider: 01/15/24 10:49 Source: patient Mode of arrival: ambulatory Limitations: no limitations History of Present Illness HPI narrative: 48-year-old male history cervical radiculopathy presents to ED for medication refill for neck pain. Patient states gabapentin work and he ran out of medication. Patient denies any upper or lower extremites weakness, paralyssis, fever, chills, neck stiffness, headache, loss of vision, numbness, tingling, slurred speech,dizinesss, or any new trauma. Related Data Previous Rx's Medication Instructions Recorded omeprazole 40 mg capsule,delayed 40 mg PO DAILY 30 days #30 caps 11/10/23 release propranolol 20 mg tablet 20 mg PO BID 30 days #60 tabs 12/03/23 cyclobenzaprine 10 mg tablet 10 mg PO Q8H #20 tabs 12/20/23 ibuprofen 600 mg tablet 600 mg PO Q6H PRN fever or pain 12/20/23 #30 tabs gabapentin 300 mg capsule 300 mg PO DAILY 15 days #15 caps 01/02/24 gabapentin 300 mg capsule 300 mg PO DAILY 15 days #15 caps 01/15/24 Allergies Allergy/AdvReac Type Severity Reaction Status Date / Time No Known Allergies Allergy Verified 01/15/24 10:29 [No Known Allergies*] Review of Systems Review of Systems: medication refill Yes all other systems are reviewed and are negative [facility] Past Medical History Surgical History History of lumbar fusion Family History Family History Father OCD (obsessive compulsive disorder) History of ETOH abuse Mother Heart murmur, aortic Brother In good health Daughter In good health Social History Social History Housing: Apartment Unable to assess alcohol history related to: Unknown Alcohol intake: never Patient Tobacco Use Status: Never used Tobacco e-Cigarette/Vaping Use: Never Used Second Hand Smoke Exposure: No Advance Directives: No Advance Directives Information Provided: Yes service: No Current occupational status: disabled Cognitive needs: No Hearing needs: No Vision needs: No Physical Exam ED Vital Signs: Vital Signs - 24 hr 01/15/24 10:29 Temperature 98.1 F Pulse Rate 79 Respiratory Rate 18 Blood Pressure 135/90 H Pulse Oximetry 97 Oxygen Delivery Method Room Air BMI result Body Mass Index 28.2 Const General: cooperative, healthy appearing, comfortable, no acute distress, well developed, alert, awake and Physically active Orientation/consciousness: oriented to person, oriented to place, oriented to time and patient oriented x3 HENMT Head: Yes normal to inspection, Yes No palpable skull fracture present, Yes normocephalic, Yes atraumatic and No abrasion Eyes General: appearance normal, both eyes and all related structures Neck Neck: Yes normal visual inspection, Yes full ROM, Yes no lymphadenopathy, Yes no meningeal signs, Yes trachea midline, Yes supple, No anterior neck swelling and No tender Chest Chest palpation & inspection: normal inspection of the chest and normal palpation of entire chest wall Resp Effort & Inspection: normal respiratory effort and able to speak in complete sentences Auscultation: clear to auscultation bilaterally Cardio Jugular venous distension: no JVD Heart sounds: S1 normal heart sound present and S2 normal heart sound present GI Inspection: Yes normal to inspection Palpation (GI): Soft to palpation, not firm, nontender, no guarding and not rigid General: No CVA tenderness and Yes no CVA tenderness Back/Spine/Pelvis Back: no CVA tenderness, No CVA tenderness and No back tenderness Skin General skin exam: no rashes or lesions noted, elasticity normal and turgor normal Neuro General: oriented to person, oriented to place, oriented to time, patient oriented x3, gait normal, tone normal, moves all extremities, Normal light touch and pain sensation, no meningeal signs, no focal motor deficits, CN's II-XI intact bilaterally and normal sensation to monofilament Extrem General: Yes normal to inspection, Yes full ROM and Yes capillary refill normal Psych Appearance: grossly normal, well kempt and not disheveled Medical Decision Making Medical Decision Making MDM Narrative: 48-year-old male history cervical radiculopathy presents to ED for medication refill of gabapentin which helped his cervical radiculopathy. Patient states he finished prescription. Patient states having neck pain but no new paralysis, weakness, numbness, tingling, slurred speech, headache, dizziness, nausea, vomiting, any recent trauma. NIH score is 0. Not suspecting stroke, carotid dissection, vertebral dissection, or cord compression or cervical spine. Patient will be given refill of gabapentin informed to follow-up with primary care provider. No need for MRI neck or head CTscan. Not suspecting meningitis Differential Diagnosis Differential Diagnoses: The differential diagnosis associated with the presentation includes ( cervical radiculopathy.) Admission/Observation Consideration of admission/observation: Escalation of care including admission/observation considered Independent Historian Clinical information obtained from an independent historian. History obtained from or confirmed by: Other (patient) External Record Review External record reviewed: Other ( revisit) Prescription Management I considered prescription management with: Pain Medication Discharge Plan Discharge Clinical Impression: Cervical radiculopathy, Medication refill Patient Disposition: Home, Self-Care Instructions: Cervical Radiculopathy (ED), Medicine Refill (ED) Additional Instructions: recommend follow-up with primary care provider. Return to the ED for any worsening neck pain, weakness /paralysis of extremities, numbness, facial droop, headache, dizziness, nausea, vomiting, fever, chills, neck stiffness, or any other concerning symptoms. Prescriptions: New gabapentin 300 mg capsule 300 mg PO DAILY 15 Days Qty: 15 0RF No Action omeprazole 40 mg capsule,delayed release(DR/EC) 40 mg PO DAILY 30 Days Qty: 30 3RF propranolol 20 mg tablet 20 mg PO BID 30 Days Qty: 60 1RF gabapentin 300 mg capsule 300 mg PO DAILY 15 Days Qty: 15 0RF cyclobenzaprine 10 mg tablet 10 mg PO Q8H Qty: 20 0RF ibuprofen 600 mg tablet 600 mg PO Q6H PRN (Reason: fever or pain) Qty: 30 0RF Interventions: ED Discharge Assessment Last Done: 01/15/24 11:45 Discharge Date/Time: 01/15/24 11:46 Print Language: Maltese
[2024-01-15 11:45] VITALS: BP 135/90; PULSE 79; RESP 18; TEMP 36.7; O2SAT 97
== END 2024-01-15 11:46 | disposition home or self-care (01) ==
PROVIDERS: Emergency Provider Student in an Organized Health Care Education/Training Program; PCP Physician Assistant
DX: Z76.0 Encounter for issue of repeat prescription (principal); M54.12 Radiculopathy, cervical region
CPT/HCPCS: 99282

== ENCOUNTER 2024-02-07 14:10 | Outpatient (REF) | payer OTHER, SELFPAY | END 2024-02-07 14:11 | disposition home or self-care (01) | LOC: HO.MRI 14:10 | PROVIDERS: PCP Physician Assistant; Visit Provider Physician Assistant | DX: Z13.89 Encounter for screening for other disorder (principal) ==

== ENCOUNTER 2024-05-14 10:48 | Outpatient (REF) | payer OTHER, SELFPAY ==
--- NOTE | ~2024-05-14 | XR_ITS ---
EXAMINATION: XR LUMBOSACRAL SPINE WITH OBLIQUES CLINICAL INFORMATION: Lumbar degenerative disc disease. COMPARISON: Radiographs dated 12/31/2021. TECHNIQUE: AP and lateral (neutral, flexion and extension) views of the lumbosacral spine are submitted. FINDINGS: There is mild bony demineralization. There is a stable very mild T12 upper endplate compression fracture There is a stable moderate L1 upper endplate compression fracture. There is mild posterior disc space narrowing at L1-L2. At L4-L5, there is a 3 mm anterolisthesis. At L5-S1, there is marked disc space narrowing, with a 1.4 cm anterolisthesis. No acute fracture or spondylolisthesis is seen. There is no instability with flexion or extension. The posterior elements are intact. There is multi-level lumbar facet arthropathy. The paravertebral soft tissues are unremarkable. XR/XR lumbar spine 4V min IMPRESSION: 1. There are stable very mild T12 and moderate L1 upper endplate compression fractures. 2. There is mild degenerative disc disease at L1-L2 and L4-L5, and there is marked degenerative disc disease at L5-S1. 3. There is no acute fracture or spondylolisthesis. No instability is seen with flexion or extension.
== END 2024-05-14 10:49 | disposition home or self-care (01) ==
LOC: HO.HOSX 10:48
PROVIDERS: PCP Physician Assistant; Visit Provider Physician Assistant
DX: M51.36 Other intervertebral disc degeneration, lumbar region (principal); M54.12 Radiculopathy, cervical region
CPT/HCPCS: 72110; 99202

== ENCOUNTER 2024-05-14 10:48 | Outpatient (AMB) | payer OTHER, SELFPAY ==
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
== END 2024-05-14 12:10 | disposition home or self-care (01) ==
PROVIDERS: PCP Physician Assistant; Referring Provider Physician Assistant; Visit Provider Physician Assistant
DX: M51.36 Other intervertebral disc degeneration, lumbar region (principal); M54.12 Radiculopathy, cervical region
CPT/HCPCS: 99205

== ENCOUNTER 2024-06-01 12:23 | Emergency (ER) | payer OTHER, SELFPAY ==
--- NOTE | ~2024-06-01 | CT_ITS ---
EXAMINATION: CT ABDOMEN AND PELVIS WITH CONTRAST CLINICAL INFORMATION: Periumbilical pain COMPARISON: 06/25/2019 TECHNIQUE: Multidetector volumetric images were obtained from the superior aspect of the liver through the pubic symphysis following administration 85 mL of Omnipaque 350 intravenous contrast. Sagittal and coronal reformatted images were obtained on the technologist's workstation. Oral contrast: No This CT examination was performed using dose optimization techniques as appropriate, variously including the following: *Automated exposure control *Adjustment of mA and/or kV according to patient size (this includes techniques or standardized protocols for targeted exams where dose is matched to indication/reason for exam; i.e. extremities or head) *Use of iterative reconstruction technique DLP: 629 mGy-cm FINDINGS: LUNG BASES: Mild basilar atelectasis LIVER, GALLBLADDER, AND BILIARY TREE: The liver is normal in size, shape, and attenuation. No focal hepatic lesion or biliary ductal dilatation is present. The gallbladder is unremarkable with no evidence of radiopaque gallstones, gallbladder wall thickening, or obvious pericholecystic inflammatory changes. PANCREAS: Unremarkable. SPLEEN: Unremarkable. ADRENAL GLANDS: Unremarkable. KIDNEYS AND URETERS: Small area low attenuation lower pole left kidney appears mildly linear BLADDER: Unremarkable. GASTROINTESTINAL TRACT: Nonobstructing bowel pattern. Diverticula disease but no evidence for diverticulitis. The appendix is within normal limits. ABDOMINAL WALL: No significant hernia is appreciated. LYMPH NODES: There is no bulky adenopathy here. VASCULAR: Mild atherosclerotic changes PELVIC VISCERA: Unremarkable. OSSEOUS STRUCTURES: Scattered sclerotic bony densities. In the sacrum there is an increasing bony density measuring 1.1 cm. Previously 6 mm. Significant degenerative change at L5-S1 once again seen with significant listhesis. This is similar to previous. There is also significant degenerative change with partial compression injury in the upper lumbar region but no acute bony changes seen. CT/CT abdomen pelvis w IV con IMPRESSION: The bowel pattern is felt to be within normal limits. No suspicious fluid collection. Somewhat linear area of decreased attenuation in the lower pole left kidney may represent evolving cystic change versus other. Given the finding element of pyelonephritis cannot be excluded. Increasing sclerotic lesion in the sacrum of uncertain etiology. Correlation recommended clinically clinically. Recommend bone scan to further evaluate Significant degenerative change in the lumbar spine once again seen. If further evaluation is warranted here recommended MRI Fleischner guidelines were followed.
--- NOTE | 2024-06-01 12:26 | ED_ITS ---
HPI - Abdominal Pain General Chief Complaint: Abdominal Pain Stated Complaint: abd pain Time Seen by Provider: 06/01/24 14:29 Source: patient Mode of arrival: ambulatory Limitations: no limitations History of Present Illness ED Provider: Eric Talavera PA-C HPI narrative: 49-year-old male presents to ER for evaluation of intermittent abdominal pains and constipation for the last 1 week. Patient reports that he would take MiraLax and would have watery stools. When he would stop taking it he would have hard, small bowel movements, associated cramping pains. He states his last bowel movement was yesterday, was very small hard stool. He denies any surgeries to his abdomen. He has been nauseous but has not vomited. No fever or chills. No URI symptoms. No urinary symptoms. Reports the pain is in the periumbilical area, comes and goes and is cramping in nature. MD elicited complaint: abdominal pain Pertinent past history: constipation Onset (ago): week(s) (1) Pain Consistency: intermittent Location: periumbilical Severity: moderate Quality: cramping Radiation: none Migration to: no migration Exacerbating factors: nothing Relieving factors: nothing Associated symptoms: nausea and constipation Related Data Previous Rx's ?Medication ?Instructions ?Recorded propranolol 20 mg tablet 20 mg PO BID 30 days #60 tabs 12/03/23 cyclobenzaprine 10 mg tablet 10 mg PO Q8H #20 tabs 12/20/23 ibuprofen 600 mg tablet 600 mg PO Q6H PRN fever or pain 12/20/23 #30 tabs gabapentin 300 mg capsule 300 mg PO DAILY 15 days #15 caps 01/15/24 gabapentin 300 mg capsule 300 mg PO BID 30 days #60 caps 01/24/24 omeprazole 40 mg capsule,delayed 40 mg PO DAILY 30 days #30 caps 02/12/24 release acetaminophen 500 mg capsule 500 mg PO Q6H PRN fever 30 days 05/21/24 #120 caps loperamide 2 mg capsule 2 mg PO Q8H loose stool 10 days 05/22/24 #30 caps dicyclomine 10 mg capsule 10 mg PO TID PRN abdominal pain 06/01/24 #20 caps docusate sodium 100 mg capsule 100 mg PO BID #30 caps 06/01/24 (Colace) sennosides 8.6 mg capsule (senna) 8.6 mg PO BEDTIME PRN constipation 06/01/24 #14 caps Allergies Allergy/AdvReac Type Severity Reaction Status Date / Time No Known Allergies Allergy Verified 06/01/24 12:34 [No Known Allergies*] Review of Systems Review of Systems Yes all other systems are reviewed and are negative [facility] Past Medical History Surgical History History of lumbar fusion Family History Family History Father OCD (obsessive compulsive disorder) History of ETOH abuse Mother Heart murmur, aortic Brother In good health Daughter In good health Social History Social History Housing: Apartment Unable to assess alcohol history related to: Unknown Alcohol intake: never Patient Tobacco Use Status: Never used Tobacco e-Cigarette/Vaping Use: Never Used Second Hand Smoke Exposure: No Advance Directives: No Advance Directives Information Provided: No Do you have a plan to hurt others: No Plan service: No Current occupational status: disabled Cognitive needs: No Hearing needs: No Vision needs: No Physical Exam ED Vital Signs: Vital Signs - 24 hr 06/01/24 12:32 Temperature 98.6 F Pulse Rate 100 Respiratory Rate 18 Blood Pressure 125/92 H Pulse Oximetry 97 Oxygen Delivery Method Room Air BMI result Body Mass Index 28.0 Appearance: Alert. Oriented X3. No acute distress. Head: normocephalic, atraumatic. Eyes: Pupils equal, round and reactive to light. ENT: Pharynx normal. No tonsillar swelling or exudate. Neck: Normal inspection. Neck supple. CVS: Normal heart rate and rhythm. Pulses normal. Respiratory: No respiratory distress. Breath sounds normal. Abdomen: Soft with mild periumbilical and lower abdominal tenderness without guarding or rebound. Normal active +BS x4 Skin: Skin warm and dry. Normal skin color. Normal skin turgor. No rashes. Extremities: No lower extremity edema. No joint swelling. Neuro/psych: Oriented X 3. No motor deficit. No sensory deficit. CN II-XII intact. Normal speech and cognition. Course Course Course Narrative: This is a Rapid Medical Exam performed in triage by Arcelia Crockett PA-C. Full HPI, ROS and PE to be performed by primary ED provider. 49 year-old M w/ PMHx anxiety, colitis, GERD presenting to the ED c/o periumbilical abdominal pain, constipation, SUAREZ, dry mouth, lightheaded x 1 week. took OTC meds and had some watery BMs. Now with hard stool, is passing flatus. reports nausea and vomiting with decreased PO intake PE: uncomfortable, abdomen soft epigastric and periumbilical ttp Plan: Labs, UA Medical Decision Making Medical Decision Making MDM Narrative: 49-year-old male with a history of colitis, GERD, anxiety, low back pain, who presents to the ER for evaluation of 1 week of constipation along with intermittent cramping abdominal pains in the periumbilical region. No vomiting. He has been taking MiraLax intermittently that causes watery stool, alternating with very hard small stools. His lab workup was unremarkable. His urinalysis is negative for infection. CT scan was reviewed, he has a moderate stool burden in the colon without any evidence of obstruction. Radiology reading a possible cystic lesion in the kidney, can not rule out pyelo however his negative UA does not suggest pyelo. He has no CVA tenderness on examination. He also has an increasing sclerotic lesion in his sacrum, unknown etiology. We discussed the results of this and he is to follow up with his primary care. We discussed treatment of constipation with things like fiber, dietary modifications, stool softeners, senna and MiraLax. We also discussed the need of GI follow-up, he is due for colonoscopy. He is tolerating p.o. and stable for discharge home with outpatient follow-up as needed. Patient agrees with plan all questions were answered Differential Diagnosis Differential Diagnoses: The differential diagnosis associated with the presentation includes Constipation, obstipation, SBO, Rayland syndrome, colon cancer, prostate cancer, UTI, pyelo Admission/Observation Consideration of admission/observation: Escalation of care including admission/observation considered Lab Data [facility] Lab Attestation statement: I reviewed the patient's lab results. 06/01/24 12:54 06/01/24 12:54 Labs: Lab Results 06/01/24 Range/Units 12:54 WBC 5.6 (4.8-10.8) X10*3/uL RBC 4.69 (4.60-5.80) X10*6/uL Hgb 15.0 (14.0-18.0) g/dl Hct 41.4 L (42.0-52.0) % MCV 88.3 (80.0-98.0) fL MCH 32.0 (27.0-33.0) pg MCHC 36.2 H (31.0-36.0) g/dl RDW 12.7 (11.0-16.0) % Plt Count 261 (160-400) X10*3/uL MPV 10.0 (9.4-12.4) fL Immature Gran % (Auto) 0.4 (0.0-0.4) % Neut % (Auto) 65.5 (45-73) % Lymph % (Auto) 25.2 (20-40) % [place] % (Auto) 6.4 (2-11) % Eos % (Auto) 2.0 (0-4) % Baso % (Auto) 0.5 (0-2) % Lymph # (Auto) 1.4 (1.2-4.9) X10*3/uL [place] # (Auto) 0.4 (0.1-1.2) X10*3/uL Eos # (Auto) 0.1 (0.0-0.4) X10*3/uL Baso # (Auto) 0.0 (0.0-0.2) X10*3/uL Abs Immat Gran (auto) 0.02 (0.00-0.03) X10*3/uL Absolute Neuts (auto) 3.7 (2.0-8.3) x10*3/uL Absolute Nucleated RBC 0.000 (0.0-0.012) X10*3/uL Nucleated RBC % (auto) 0.0 (0.0-0.2) /100WBC Sodium 141 (135-145) mmol/L Potassium 3.7 (3.3-5.1) mmol/L Chloride 107 (96-108) mmol/L Carbon Dioxide 24 (22-29) mmol/L Anion Gap 14 (12-20) BUN 10 (9-16) mg/dL Creatinine 1.14 (0.5-1.4) mg/dL Estim Creat Clear Calc 100.1 Estimated GFR > 60 Random Glucose 104 (60-115) mg/dL Calcium 9.4 (8.4-10.2) mg/dL Magnesium 2.2 (1.6-2.6) mg/dL Total Bilirubin 1.0 (0.0-1.0) mg/dL Direct Bilirubin 0.3 (0.0-0.5) mg/dL AST 20 (5-37) U/L ALT 34 (0-40) U/L Alkaline Phosphatase 66 (39-117) U/L Troponin I High Sens < 2.7 (<3.5-35.0) ng/L Total Protein 7.4 (6.5-8.0) g/dL Albumin 4.6 (3.5-5.0) g/dL Lipase 21 (8-78) U/L Urine Color Dark Yellow Urine Appearance Clear Urine pH 5.5 (5.0-9.0) Ur Specific [place] >= 1.030 H (1.005-1.025) Urine Protein Trace (Neg-Trace) mg/dL Urine Glucose (UA) Negative (Negative) mg/dL Urine Ketones Trace (Negative) mg/dL Urine Blood Negative (Negative) Urine Nitrite Negative (Negative) Ur Leukocyte Esterase Negative (Negative) Independent Interpretation I performed an independent interpretation of an: EKG and CT Scan Interpretation: CT without air fluid levels to suggest obstruction, no stool ball or colonic distention, agree w/ radiology read ekg with normal sinus rhythm, hr 83 bpm, no st segment elevations or depressions, normal qtc Radiology Impression Discussion of test interpretation with radiology: I have reviewed the radiologist's reading. Radiologist Impression: EXAMINATION: CT ABDOMEN AND PELVIS WITH CONTRAST CLINICAL INFORMATION: Periumbilical pain COMPARISON: 06/25/2019 TECHNIQUE: Multidetector volumetric images were obtained from the superior aspect of the liver through the pubic symphysis following administration 85 mL of Omnipaque 350 intravenous contrast. Sagittal and coronal reformatted images were obtained on the technologist's workstation. Oral contrast: No This CT examination was performed using dose optimization techniques as appropriate, variously including the following: *Automated exposure control *Adjustment of mA and/or kV according to patient size (this includes techniques or standardized protocols for targeted exams where dose is matched to indication/reason for exam; i.e. extremities or head) *Use of iterative reconstruction technique DLP: 629 mGy-cm FINDINGS: LUNG BASES: Mild basilar atelectasis LIVER, GALLBLADDER, AND BILIARY TREE: The liver is normal in size, shape, and attenuation. No focal hepatic lesion or biliary ductal dilatation is present. The gallbladder is unremarkable with no evidence of radiopaque gallstones, gallbladder wall thickening, or obvious pericholecystic inflammatory changes. PANCREAS: Unremarkable. SPLEEN: Unremarkable. ADRENAL GLANDS: Unremarkable. KIDNEYS AND URETERS: Small area low attenuation lower pole left kidney appears mildly linear BLADDER: Unremarkable. GASTROINTESTINAL TRACT: Nonobstructing bowel pattern. Diverticula disease but no evidence for diverticulitis. The appendix is within normal limits. ABDOMINAL WALL: No significant hernia is appreciated. LYMPH NODES: There is no bulky adenopathy here. VASCULAR: Mild atherosclerotic changes PELVIC VISCERA: Unremarkable. OSSEOUS STRUCTURES: Scattered sclerotic bony densities. In the sacrum there is an increasing bony density measuring 1.1 cm. Previously 6 mm. Significant degenerative change at L5-S1 once again seen with significant listhesis. This is similar to previous. There is also significant degenerative change with partial compression injury in the upper lumbar region but no acute bony changes seen. CT/CT abdomen pelvis w IV con IMPRESSION: The bowel pattern is felt to be within normal limits. No suspicious fluid collection. Somewhat linear area of decreased attenuation in the lower pole left kidney may represent evolving cystic change versus other. Given the finding element of pyelonephritis cannot be excluded. Increasing sclerotic lesion in the sacrum of uncertain etiology. Correlation recommended clinically clinically. Recommend bone scan to further evaluate Significant degenerative change in the lumbar spine once again seen. If further evaluation is warranted here recommended MRI External Record Review External record reviewed: Outpatient record, Prior outpatient labs and Prior outpatient radiology Prescription Management I considered prescription management with: Pain Medication and Antibiotic Chronic Conditions Patient?s care impacted by: Other (GERD) Medications Administered Discontinued Medications Generic Name Dose Route Start Last Admin Trade Name Freq PRN Reason Stop Dose Admin Sodium Chloride 1,000 mls @ 999 mls/hr 06/01/24 12:45 06/01/24 16:15 Ns IV 06/01/24 13:45 Infused .Q1H1M KEN Infusion Iohexol 100 ml 06/01/24 14:46 06/01/24 14:46 Iohexol 350 Mg/Ml 100 Ml Infus..Btl IV 06/01/24 14:47 85 ml ONCE ONE Administration Critical Care Time Critical Care Time Critical Care Time: No Discharge Plan Discharge Clinical Impression: Constipation Qualifiers: Constipation type: unspecified constipation type Qualified Code(s): K59.00 - Constipation, unspecified Patient Disposition: Home, Self-Care Instructions: Constipation (DC), Acute Abdominal Pain (DC) Additional Instructions: CT scan findings as below. Images were reviewed independently and you have significant amount of stool in the colon. Recommend continuing MiraLax. Recommend increasing her fiber intake, try [id number] Metamucil. You can also try the prescribed stool softener, colace and laxative, senna Stick to a bland diet where not feeling well. Recommend following up with GI for further evaluation and treatment. You need a colonoscopy. You can take the prescribed medication as needed for abdominal pain and spasms. Your CT scan showed increased sclerotic lesions of a bone in your pelvis, it is recommended you get a bone scan for this. Follow-up with primary care for this. If you develop new or worsening symptoms call 911 or come back to the ER for further evaluation. CT/CT abdomen pelvis w IV con IMPRESSION: The bowel pattern is felt to be within normal limits. No suspicious fluid collection. Somewhat linear area of decreased attenuation in the lower pole left kidney may represent evolving cystic change versus other. Given the finding element of pyelonephritis cannot be excluded. Increasing sclerotic lesion in the sacrum of uncertain etiology. Correlation recommended clinically clinically. Recommend bone scan to further evaluate Significant degenerative change in the lumbar spine once again seen. If further evaluation is warranted here recommended MRI Prescriptions: New dicyclomine 10 mg capsule 10 mg PO TID PRN (Reason: abdominal pain) Qty: 20 0RF senna 8.6 mg capsule 8.6 mg PO BEDTIME PRN (Reason: constipation) Qty: 14 0RF docusate sodium [Colace] 100 mg capsule 100 mg PO BID Qty: 30 0RF No Action propranolol 20 mg tablet 20 mg PO BID 30 Days Qty: 60 1RF gabapentin 300 mg capsule 300 mg PO BID 30 Days Qty: 60 1RF omeprazole 40 mg capsule,delayed release(DR/EC) 40 mg PO DAILY 30 Days Qty: 30 1RF acetaminophen 500 mg capsule 500 mg PO Q6H PRN (Reason: fever) 30 Days Qty: 120 0RF loperamide 2 mg capsule 2 mg PO Q8H 10 Days Qty: 30 1RF cyclobenzaprine 10 mg tablet 10 mg PO Q8H Qty: 20 0RF ibuprofen 600 mg tablet 600 mg PO Q6H PRN (Reason: fever or pain) Qty: 30 0RF gabapentin 300 mg capsule 300 mg PO DAILY 15 Days Qty: 15 0RF Referrals: [facility] [place] [facility] [Provider Group] (constipation) Maxime Frias PA-C [Primary Care Provider] - Print Language: Other
--- NOTE | 2024-06-01 12:26 | PC.NURSE ---
called to [facility]. no answer
[2024-06-01 12:32] VITALS: BP 125/92; PULSE 100; RESP 18; TEMP 37; O2SAT 97; BMI 28.0
--- NOTE | 2024-06-01 12:37 | ECG_ITS ---
Test Reason : lightheaded Blood Pressure : / mmHG Vent. Rate : 083 BPM Atrial Rate : 083 BPM P-R Int : 126 ms QRS Dur : 086 ms QT Int : 356 ms P-R-T Axes : 044 004 012 degrees QTc Int : 418 ms Normal sinus rhythm Normal ECG When compared with ECG of 20-DEC-2023 17:44, No significant change was found Referred By: Arcelia Crockett Electronically Signed By:STEFAN GARRETT
[2024-06-01 12:59] LABS: MANUAL DIFF FLAG NO
[2024-06-01 13:00] LABS: Basophils Percent Auto 0.5 % (0-2); Eosinophils Absolute Auto 0.1 X10*3/uL (0.0-0.4); Hematocrit 41.4 % (42.0-52.0); Imm Gran Abs Auto 0.02 X10*3/uL (0.00-0.03); Imm Gran Pct Auto 0.4 % (0.0-0.4); Lymphocytes Absolute Auto 1.4 X10*3/uL (1.2-4.9); Lymphocytes Percent Auto 25.2 % (20-40); Mean Corpuscular HGB Conc 36.2 g/dl (31.0-36.0); Mean Corpuscular Volume 88.3 fL (80.0-98.0); Monocytes Absolute Auto 0.4 X10*3/uL (0.1-1.2); Monocytes Percent Auto 6.4 % (2-11); Neutrophils Absolute Auto 3.7 x10*3/uL (2.0-8.3); Neutrophils Percent Auto 65.5 % (45-73); Platelet Count 261 X10*3/uL (160-400); Red Blood Count 4.69 X10*6/uL (4.60-5.80); Red Cell Distribution Width 12.7 % (11.0-16.0); White Blood Count 5.6 X10*3/uL (4.8-10.8)
[2024-06-01 13:01] LABS: Appearance Urine Clear; Color Urine Dark Yellow; Glucose Urine UA Negative (Negative); Leukocyte Esterase Urine Negative (Negative); Nitrite Urine Negative (Negative); PH 5.5 (5.0-9.0); Specific Gravity - Urine >= 1.030 (1.005-1.025); Urine Blood Negative (Negative); Urine Ketones Trace mg/dL (Negative); Urine Protein Trace mg/dL (Neg-Trace)
[2024-06-01 13:16] LABS: Alanine Aminotransferase 34 U/L (0-40); Albumin Level 4.6 g/dL (3.5-5.0); Alkaline Phosphatase 66 U/L (39-117); Anion Gap 14 (12-20); Aspartate Amino Transferase 20 U/L (5-37); Bilirubin Direct 0.3 mg/dL (0.0-0.5); Blood Urea Nitrogen 10 mg/dL (9-16); Calcium 9.4 mg/dL (8.4-10.2); Carbon Dioxide 24 mmol/L (22-29); Chloride 107 mmol/L (96-108); Creatinine Clr Calc Pharmacy 100.1; Estimated Glomerular Filt Rate > 60; Glucose Random 104 mg/dL (60-115); Lipase 21 U/L (8-78); Magnesium 2.2 mg/dL (1.6-2.6); Potassium 3.7 mmol/L (3.3-5.1); Sodium 141 mmol/L (135-145); Total Protein 7.4 g/dL (6.5-8.0)
[2024-06-01 13:25] LABS: Troponin-I High Sensitivity < 2.7 ng/L (<3.5-35.0)
[2024-06-01] MEDS: iohexoL 350 MG/ML 100 ML INFUS..BTL IV (14:46)
[2024-06-01] MEDS: 0.9 % Sodium Chloride 1,000 ML 999 ML IV (14:49)
[2024-06-01 17:21] VITALS: BP 138/82; PULSE 61; RESP 18; TEMP 37.1; O2SAT 99
== END 2024-06-01 17:23 | disposition home or self-care (01) ==
PROVIDERS: Physician Assistant; Emergency Provider Emergency Medicine; PCP Physician Assistant
DX: K59.00 Constipation, unspecified (principal); R10.33 Periumbilical pain; K21.9 Gastro-esophageal reflux disease without esophagitis; Z79.899 Other long term (current) drug therapy
CPT/HCPCS: 36415; 74177; 80048; 80076; 81003; 83690; 83735; 84484; 85025; 93005; 96360; 99284; Q9967

== ENCOUNTER 2024-07-17 14:51 | Emergency (ER) | payer OTHER, SELFPAY ==
--- NOTE | ~2024-07-17 | XR_ITS ---
EXAMINATION: XR HAND/WRIST, RIGHT CLINICAL INFORMATION: Trauma. Pain. COMPARISON: None available. TECHNIQUE: Four views of the right hand and wrist. FINDINGS: There is a minimally displaced oblique fracture through the distal shaft of the fifth metacarpal. Fracture does not involve the articular surface of the bone. Orthopedic plate and screw proximal radial shaft. Old nonunited ulnar styloid fracture fragment. XR/XR hand wrist RT IMPRESSION: Minimally displaced oblique fracture distal shaft of fifth metacarpal. Electronically signed by: Shoaib Ragland MD 07/17/2024 05:49 PM EDT RP
[2024-07-17 15:00] VITALS: BP 141/87; BP 146/89; PULSE 84; PULSE 87; RESP 16; TEMP 37.7; O2SAT 95; O2SAT 98; BMI 24.4
[2024-07-17 15:35] LABS: MANUAL DIFF FLAG NO
[2024-07-17 15:37] LABS: Basophils Absolute Auto 0.1 X10*3/uL (0.0-0.2); Basophils Percent Auto 0.5 % (0-2); Eosinophils Absolute Auto 0.1 X10*3/uL (0.0-0.4); Eosinophils Percent Auto 0.7 % (0-4); Hematocrit 42.5 % (42.0-52.0); Hemoglobin 15.5 g/dl (14.0-18.0); Imm Gran Abs Auto 0.02 X10*3/uL (0.00-0.03); Imm Gran Pct Auto 0.2 % (0.0-0.4); Lymphocytes Absolute Auto 1.6 X10*3/uL (1.2-4.9); Lymphocytes Percent Auto 15.7 % (20-40); Mean Corpuscular HGB Conc 36.5 g/dl (31.0-36.0); Mean Corpuscular Hemoglobin 32.4 pg (27.0-33.0); Mean Corpuscular Volume 88.7 fL (80.0-98.0); Mean Platelet Volume 10.4 fL (9.4-12.4); Monocytes Absolute Auto 0.9 X10*3/uL (0.1-1.2); Monocytes Percent Auto 8.8 % (2-11); Neutrophils Absolute Auto 7.4 x10*3/uL (2.0-8.3); Neutrophils Percent Auto 74.1 % (45-73); Platelet Count 254 X10*3/uL (160-400); Red Blood Count 4.79 X10*6/uL (4.60-5.80); Red Cell Distribution Width 12.6 % (11.0-16.0)
[2024-07-17 15:42] LABS: Amphetamine Screen Urine Not Detected (Not Detect); Barbiturates, Urine Not Detected (Not Detect); Benzodiazepines Screen Urine Not Detected (Not Detect); Buprenorphine Scr Not Detected (Not Detect); Cannabinoid Screen Urine Not Detected (Not Detect); Cocaine Screen Urine Not Detected (Not Detect); Fentanyl, urine Not Detected (Not Detect); Methadone Screen, Urine Not Detected (Not Detect); Opiate Screen Urine Not Detected (Not Detect); Oxycodone Screen Urine Not Detected (Not Detect); Phencyclidine Screen Urine Not Detected (Not Detect)
[2024-07-17 15:49] VITALS: RESP 16
[2024-07-17 16:03] LABS: Alanine Aminotransferase 25 U/L (0-40); Albumin Level 4.7 g/dL (3.5-5.0); Alkaline Phosphatase 71 U/L (39-117); Anion Gap 14 (12-20); Aspartate Amino Transferase 21 U/L (5-37); Bilirubin Direct 0.3 mg/dL (0.0-0.5); Bilirubin Total 0.8 mg/dL (0.0-1.0); Blood Urea Nitrogen 9 mg/dL (9-16); Calcium 9.7 mg/dL (8.4-10.2); Carbon Dioxide 25 mmol/L (22-29); Chloride 107 mmol/L (96-108); Creatinine Clr Calc Pharmacy 75.1; Estimated Glomerular Filt Rate 59; Ethanol < 10 mg/dL; Glucose Random 125 mg/dL (60-115); Potassium 3.7 mmol/L (3.3-5.1); Sodium 142 mmol/L (135-145); Total Protein 7.6 g/dL (6.5-8.0)
--- NOTE | 2024-07-17 16:09 | PC.NURSE ---
Compa is coming in from a DDS program today due to increasing paranoia and depression at home. Pt reports that his daughter was moved to a usp at some point in the last few months and he is having trouble coping. He reports that he is home alone now since his mother is in a jail and she is losing her memory. He reports this is causing him to feel sad and lonely. He endorses non-command auditory hallucinations sounds like chatter in the background . He denies SI/HI. He also endorses an increase in drinking over the past week-two weeks. He reports that he drinks daily, varying amounts of liquor and beer. Pts caregiver reports that he is been acting paranoid at home, thinking people are taking pictures of him in his home and he has also been punching things. Pts right hand is noted to be swollen. Plan for xrays, blood work and then care team yoana
[2024-07-17 16:14] LABS: Thyroid Stimulating Hormone 0.67 uIU/mL (0.32-4.0)
--- NOTE | 2024-07-17 16:33 | ED_ITS ---
HPI - Psych General Chief Complaint: Psychiatric Symptoms Stated Complaint: Psych Evaluation Time Seen by Provider: 07/17/24 14:54 Source: patient and RN notes reviewed Mode of arrival: ambulatory Limitations: no limitations History of Present Illness ED Provider: Sandy Smith PA-C HPI Narrative: This is a 49-year-old male, with reported no medical problems, who presents emergency department with complaints of increased depression and anxiety as well as auditory hallucinations. Patient states that his daughter was recently placed in a snf and patient is having a tough time with this transition. He states that he has heard chatter in the background , denies any command hallucinations, were visual hallucinations. He denies any suicidal or homicidal ideation. He states that over the last several days he has been drinking alcohol, states that he has been drinking several shots, a pt of fireball, and several beers. Denies history of alcohol withdrawal. Denies any other illicit drug use. He has no physical complaints. He denies any headaches, fevers, chills, chest pain, shortness of breath, abdominal pain, nausea, vomiting or diarrhea. He does report right hand pain secondary to punching at [employer]. He is right-hand dominant. No other complaints or concerns at this time. MD complaint: feels depressed and hallucinations Onset (ago): week(s) Duration: constant Relieving factors: none Exacerbating factors: none Context: recent alcohol abuse and significant life stressor Associated psychiatric symptoms: depression and auditory hallucinations Associated symptoms: denies other symptoms Treatments prior to arrival: none Related Data Home Medications ?Medication ?Instructions ?Recorded ?Confirmed No Known Home Meds 07/17/24 07/17/24 Allergies Allergy/AdvReac Type Severity Reaction Status Date / Time No Known Allergies Allergy Verified 07/17/24 15:06 [No Known Allergies*] Review of Systems 2 Review of Systems: Yes all other systems are reviewed and are negative [facility] Past Medical History Surgical History History of lumbar fusion Family History Family History Father OCD (obsessive compulsive disorder) History of ETOH abuse Mother Heart murmur, aortic Brother In good health Daughter In good health Social History Social History Housing: Apartment Unable to assess alcohol history related to: Unknown Alcohol intake: current Alcohol type: beer and hard liquor Patient Tobacco Use Status: Never used Tobacco Smoked in Last 30 Days: No e-Cigarette/Vaping Use: Never Used Second Hand Smoke Exposure: No Use of substances other than those prescribed or required for medical reasons: No Advance Directives: No Advance Directives Information Provided: No service: No Current occupational status: disabled Cognitive needs: No Hearing needs: No Vision needs: No Physical Exam 2 Vital Signs: Vital Signs: Last Vital Signs Temp 99.5 F 07/17/24 19:10 Pulse 83 07/17/24 19:10 Resp 18 07/17/24 19:10 BP 133/82 07/17/24 19:10 Pulse Ox 98 07/17/24 19:10 O2 Del Method Room Air 07/17/24 19:10 BMI result Body Mass Index 24.4 Extrem: Other: Right hand, with tenderness palpation along the 4th and 5th metacarpals, with slight edema noted, no bony step-off. Strong radial pulse. No open wounds or lacerations noted. No erythema. Able to make a fist without difficulty. Able to oppose thumb to all digits. Psych: Appearance: grossly normal Mental Status: mental status grossly normal Speech and movement: Slowed speech present (Psych) Affect: Sad affect present Attitude: Guarded attititude/behavior present and Avoids eye contact (attititude/behavior) Thought process: Normal thought process present Thought content: Normal thought content present Insight: Poor insight present (Psych) Judgement: Poor judgement present (Psych) Course Reevaluation(s) Reevaluation #1: Labs returned, he has no leukocytosis, chemistry with no electrolyte derangement, U tox negative. Awaiting hand and wrist x-ray. Appears that patient has a boxer's fracture however still awaiting official report. Sign out given to my colleague, Solomon Ott DNP Time: 17:08 Reevaluation #2: See procedure note for splinting. I discussed with the nursing staff and cleared the patient a splint with Jude wrap in the palm. Postprocedure, neurovascular status remains intact Time: 18:08 Reevaluation #3: XR/XR hand wrist RT IMPRESSION: Minimally displaced oblique fracture distal shaft of fifth metacarpal. Outpatient follow-up with hand specialist; Dr. Mercado regarding fracture. Patient was evaluated by care team, he was actually seen in the community by [facility], they had concerns about alcohol intoxication, alcohol level was negative. He was reassessed by care team here, deemed appropriate for voluntary respite bed, unfortunately no beds available tonight, they will follow-up and community, patient requesting to leave at this time which I feel is reasonable. No SI or HI. Time: 20:57 Medications Administered Generic Name Dose Route Start Last Admin Trade Name Freq PRN Reason Stop Dose Admin Ibuprofen 600 mg 07/17/24 18:41 07/17/24 18:59 Ibuprofen 600 Mg Tablet PO 600 mg TID PRN Administration Pain, Moderate(Pain Scale 4-6) Medical Decision Making Medical Decision Making [facility] Narrative: This is a 49-year-old male who presents emergency department with complaints of increased depression, auditory hallucinations, and right hand pain status post punching a wall. On arrival, patient is alert and oriented x4, no focal deficits on examination. He does have tenderness palpation along the volar aspect of the right hand, no obvious bony deformity. He also has been psychiatrically admitted in the past however states it has been many years. He states that he has been under a significant amount of stress. He denies any SI or HI. Reports over the last several days he has been drinking alcohol, last drank yesterday. No history of alcohol withdrawal seizures. Denies any other drug use. Plan: Labs, UA, U tox, hand and wrist x-ray, care team Differential Diagnosis Differential Diagnoses: The differential diagnosis associated with the presentation includes Fracture, contusion, sprain, strain, depression, anxiety, Lab Data [facility] Lab Attestation statement: I reviewed the patient's lab results. No leukocytosis, stable H&H, chemistry with slight hyper glycemia at 125, otherwise unremarkable. U tox negative. Ethanol level 0 07/17/24 15:28 07/17/24 15:28 Labs: Lab Results 07/17/24 07/17/24 Range/Units 15:20 15:28 WBC 10.0 (4.8-10.8) X10*3/uL RBC 4.79 (4.60-5.80) X10*6/uL Hgb 15.5 (14.0-18.0) g/dl Hct 42.5 (42.0-52.0) % MCV 88.7 (80.0-98.0) fL MCH 32.4 (27.0-33.0) pg MCHC 36.5 H (31.0-36.0) g/dl RDW 12.6 (11.0-16.0) % Plt Count 254 (160-400) X10*3/uL MPV 10.4 (9.4-12.4) fL Immature Gran % (Auto) 0.2 (0.0-0.4) % Neut % (Auto) 74.1 H (45-73) % Lymph % (Auto) 15.7 L (20-40) % Stephens % (Auto) 8.8 (2-11) % Eos % (Auto) 0.7 (0-4) % Baso % (Auto) 0.5 (0-2) % Lymph # (Auto) 1.6 (1.2-4.9) X10*3/uL Stephens # (Auto) 0.9 (0.1-1.2) X10*3/uL Eos # (Auto) 0.1 (0.0-0.4) X10*3/uL Baso # (Auto) 0.1 (0.0-0.2) X10*3/uL Abs Immat Gran (auto) 0.02 (0.00-0.03) X10*3/uL Absolute Neuts (auto) 7.4 (2.0-8.3) x10*3/uL Absolute Nucleated RBC 0.000 (0.0-0.012) X10*3/uL Nucleated RBC % (auto) 0.0 (0.0-0.2) /100WBC Sodium 142 (135-145) mmol/L Potassium 3.7 (3.3-5.1) mmol/L Chloride 107 (96-108) mmol/L Carbon Dioxide 25 (22-29) mmol/L Anion Gap 14 (12-20) BUN 9 (9-16) mg/dL Creatinine 1.29 (0.5-1.4) mg/dL Estim Creat Clear Calc 75.1 Estimated GFR 59 Random Glucose 125 H (60-115) mg/dL Calcium 9.7 (8.4-10.2) mg/dL Total Bilirubin 0.8 (0.0-1.0) mg/dL Direct Bilirubin 0.3 (0.0-0.5) mg/dL AST 21 (5-37) U/L ALT 25 (0-40) U/L Alkaline Phosphatase 71 (39-117) U/L Total Protein 7.6 (6.5-8.0) g/dL Albumin 4.7 (3.5-5.0) g/dL TSH 0.67 (0.32-4.0) uIU/mL Urine Opiates Screen Not Detected (Not Detect) Ur Buprenorphine Scrn Not Detected (Not Detect) ng/mL Ur Oxycodone Screen Not Detected (Not Detect) ng/mL Urine Methadone Screen Not Detected (Not Detect) ng/mL Urine Fentanyl Screen Not Detected (Not Detect) Ur Barbiturates Screen Not Detected (Not Detect) Ur Phencyclidine Scrn Not Detected (Not Detect) Ur Amphetamines Screen Not Detected (Not Detect) U Benzodiazepines Scrn Not Detected (Not Detect) Urine Cocaine Screen Not Detected (Not Detect) U Marijuana (THC) Screen Not Detected (Not Detect) Ethyl Alcohol < 10 mg/dL Independent Interpretation I performed an independent interpretation of an: Plain X-Ray Interpretation: xrays reviewed by me prior to official report: right fifth metacarpal fracture noted. Radiology Impression Radiologist Impression: XR/XR hand wrist RT IMPRESSION: Minimally displaced oblique fracture distal shaft of fifth metacarpal. Electronically signed by: Shoaib Ragland MD 07/17/2024 05:49 PM EDT RP Dictated By: Shoaib Ragland MD Procedures Orthopedic Splinting/Casting Injury #1: Side: right Upper Extremity Injury Location: hand Upper Extremity Immobilizer: ulnar gutter Additional Comments: Patient tolerated the procedure well, there were no complications Discharge Plan Discharge Clinical Impression: Boxer's fracture, Depression Patient Disposition: Home, Self-Care Instructions: Boxer Fracture (ED), Depression (ED) Additional Instructions: You will receive a follow-up phone call regarding respite bed. Regarding the fracture in your hand, you will contact the orthopedic office to arrange for a follow-up visit, call them 1st thing tomorrow. The splint must remain in place at all times, it can not get wet. You can take ibuprofen 200 mg, 3 tablets (600mg) every 6-8 hours as needed for pain, in addition to Tylenol 500 mg, 2 tablets (1,000mg) every 4-6 hours as needed for pain, but not to exceed 3 doses daily (3,000mg).? Return to emergency department any new or worsening symptoms or concerns including worsening depression, suicidal thoughts, homicidal thoughts, hallucinations. Increasing pain to the hand, numbness or tingling, swelling. Prescriptions: No Action No Known Home Meds Referrals: Kristin Mercado MD [Physician] - (right 5th metacarpal fracture) Interventions: [place]-Suicide Risk Severity Scale Last Done: 07/17/24 15:49 Print Language: Other
[2024-07-17] MEDS: Ibuprofen 600 MG TABLET PO (18:59)
--- NOTE | 2024-07-17 19:03 | PC.NURSE ---
patient appears at rest meandering in milieu ad perry able to let his wants be known appears in no distress.
[2024-07-17 19:10] VITALS: BP 133/82; PULSE 83; RESP 18; TEMP 37.5; O2SAT 98
[2024-07-17 21:17] VITALS: BP 130/70; PULSE 80; RESP 18; TEMP 37; O2SAT 100
== END 2024-07-17 21:18 | disposition home or self-care (01) ==
PROVIDERS: Physician Assistant Medical; Emergency Provider Emergency Medicine; PCP Physician Assistant
DX: F32.A Depression, unspecified (principal); S62.326A Displaced fracture of shaft of fifth metacarpal bone, right hand, initial encounter for closed fracture; X58.XXXA Exposure to other specified factors, initial encounter; F41.9 Anxiety disorder, unspecified; R44.0 Auditory hallucinations; R44.1 Visual hallucinations; F10.10 Alcohol abuse, uncomplicated; Y90.0 Blood alcohol level of less than 20 mg/100 ml; Y93.9 Activity, unspecified; Y92.9 Unspecified place or not applicable; Y99.9 Unspecified external cause status
CPT/HCPCS: 29125; 36415; 73110; 73130; 80048; 80076; 80307; 84443; 85025; 99285; S9485

== ENCOUNTER 2024-12-30 20:22 | Emergency (ER) | payer OTHER, SELFPAY ==
--- NOTE | ~2024-12-30 | CT_ITS ---
CLINICAL HISTORY: mid abd pain and severe diarrhea, loss of wt. CT abdomen and pelvis with contrast Comparison: 06/01/2024 02:30 PM EDT: CT: CT ABDOMEN PELVIS W IV CON (01:30 PM CDT) Findings: Bibasilar atelectatic/dependent changes. Gallbladder is mostly contracted. No intra or extrahepatic ductal dilation. Solid organs are within normal limits. No bowel obstruction, pneumoperitoneum, or pneumatosis. Pelvic contents unremarkable. Normal appendix. Severe spondylosis of the L5-S1 with endplate sclerotic changes, height loss with chronic pars defect as well as chronic superior endplate compression deformity of the T12 and L1, unchanged in the interval. IMPRESSION: No acute findings. Unchanged severe spondylotic changes of the L5-S1 with chronic pars defects as well as superior endplate compression deformities of the T12 and L1 vertebrae. This document has been electronically signed by: Marco Antonio Coughlin MD on 12/30/2024 22:53:45
[2024-12-30 20:28] VITALS: BP 116/78; PULSE 81; RESP 18; TEMP 36.8; O2SAT 97
[2024-12-30 20:33] VITALS: BP 112/71; BP 122/76; PULSE 84; PULSE 93; RESP 12; TEMP 36.7; O2SAT 95; BMI 23.7
--- NOTE | 2024-12-30 20:38 | ECG_ITS ---
Test Reason : syncope Blood Pressure : */* mmHG Vent. Rate : 86 BPM Atrial Rate : 86 BPM P-R Int : 132 ms QRS Dur : 90 ms QT Int : 354 ms P-R-T Axes : 72 26 35 degrees QTcB Int : 423 ms Normal sinus rhythm Normal ECG When compared with ECG of 01-Jun-2024 12:45, No significant change was found Referred By: Generic ED Physician Electronically Signed By: Wesley Truong
[2024-12-30 20:58] LABS: MANUAL DIFF FLAG NO
[2024-12-30 21:00] LABS: Basophils Percent Auto 0.7 % (0-2); Eosinophils Absolute Auto 0.2 X10*3/uL (0.0-0.4); Eosinophils Percent Auto 3.9 % (0-4); Hematocrit 41.1 % (42.0-52.0); Hemoglobin 15.1 g/dl (14.0-18.0); Imm Gran Abs Auto 0.02 X10*3/uL (0.00-0.03); Imm Gran Pct Auto 0.3 % (0.0-0.4); Lymphocytes Absolute Auto 1.7 X10*3/uL (1.2-4.9); Lymphocytes Percent Auto 28.1 % (20-40); Mean Corpuscular HGB Conc 36.7 g/dl (31.0-36.0); Mean Corpuscular Hemoglobin 32.5 pg (27.0-33.0); Mean Corpuscular Volume 88.6 fL (80.0-98.0); Mean Platelet Volume 10.2 fL (9.4-12.4); Monocytes Absolute Auto 0.4 X10*3/uL (0.1-1.2); Monocytes Percent Auto 6.4 % (2-11); Neutrophils Absolute Auto 3.7 x10*3/uL (2.0-8.3); Neutrophils Percent Auto 60.6 % (45-73); Platelet Count 277 X10*3/uL (160-400); Red Blood Count 4.64 X10*6/uL (4.60-5.80); Red Cell Distribution Width 12.3 % (11.0-16.0); White Blood Count 6.1 X10*3/uL (4.8-10.8)
[2024-12-30 21:14] LABS: Alanine Aminotransferase 26 U/L (0-40); Albumin Level 4.3 g/dL (3.5-5.0); Alkaline Phosphatase 65 U/L (39-117); Anion Gap 14 (12-20); Aspartate Amino Transferase 24 U/L (5-37); Bilirubin Total 0.8 mg/dL (0.0-1.0); Blood Urea Nitrogen 12 mg/dL (9-16); Calcium 8.9 mg/dL (8.4-10.2); Carbon Dioxide 24 mmol/L (22-29); Chloride 108 mmol/L (96-108); Estimated Glomerular Filt Rate > 60; Ethanol < 10 mg/dL; Glucose Random 154 mg/dL (60-115); Lipase 33 U/L (8-78); Potassium 3.5 mmol/L (3.3-5.1); Sodium 142 mmol/L (135-145); Total Protein 7.1 g/dL (6.5-8.0)
--- NOTE | 2024-12-30 21:15 | ED.ABDPAIN ---
HPI - Abdominal Pain General Chief Complaint: Abdominal Pain Stated Complaint: abd pain n/v/diarrhea Time Seen by Provider: 12/30/24 21:07 Source: patient and EMS Mode of arrival: EMS Limitations: no limitations History of Present Illness ED Provider: DR. Alva HPI narrative: 49 year old male with no significant past medical history presented with abdominal pain, nonbloody watery diarrhea,nausea, and vomiting symptoms started many days ago. Patient also report unintentional loss of weight over the past with normal appetite, admit to drinking alcohol daily, pain was described in the mid abdomen in the periumbilical area with no radiation about 5 of 10, no blood in the stool or in the vomit. Patient otherwise declined using any drugs, claimed that he is not heavy drinker. Patient with history of depression however he declines any depression today or SI. Last bowel movement was this morning and with diarrhea with no blood, passing flatus, never had intra-abdominal surgery. Related Data Home Medications ?Medication ?Instructions ?Recorded ?Confirmed No Known Home Meds 07/17/24 07/17/24 Previous Rx's ?Medication ?Instructions ?Recorded acetaminophen 650 mg 650 mg PO Q12H 30 days #60 tabs 07/31/24 tablet,extended release (Tylenol Arthritis Pain) omeprazole 20 mg capsule,delayed 20 mg PO DAILY 30 days #30 caps 08/27/24 release Allergies Allergy/AdvReac Type Severity Reaction Status Date / Time No Known Allergies Allergy Verified 12/30/24 20:37 [No Known Allergies*] Review of Systems Review of Systems All other systems are reviewed and are negative Constitutional: Reports as per HPI and Reports no additional constitutional complaints Eyes: Reports as per HPI and Reports no additional eye complaints Reports system reviewed and no additional complaints, except as documented Cardiovascular: Reports as per HPI and Reports no additional cardiovascular complaints Respiratory: Reports as per HPI and Reports no additional respiratory complaints Gastrointestinal: Reports as per HPI and Reports no additional gastrointestinal complaints Genitourinary: Reports no additional female genitourinary complaints Musculoskeletal: Reports no additional musculoskeletal complaints Skin/Breast: Reports system reviewed and no additional complaints, except as docu Psychiatric: Reports no additional psychiatric complaints Endocrine: Reports no additional endocrine complaints Hematologic/Lymphatic: Reports no additional hematologic/lymphatic complaints Allergic/Immunologic: Reports no additional allergic/immunologic complaints Reports system reviewed and no additional complaints, except as documented and Reports Abnormal speech present [facility] Past Medical History Surgical History History of lumbar fusion Family History Family History Father OCD (obsessive compulsive disorder) History of ETOH abuse Mother Heart murmur, aortic Brother In good health Daughter In good health Social History Social History Housing: Apartment Unable to assess alcohol history related to: Unknown Alcohol intake: current Alcohol intake frequency: 3 or more drinks per day Alcohol type: beer and hard liquor Patient Tobacco Use Status: Never used Tobacco Smoked in Last 30 Days: Yes e-Cigarette/Vaping Use: Never Used Second Hand Smoke Exposure: No Use of substances other than those prescribed or required for medical reasons: No Advance Directives: No Advance Directives Information Provided: No Do you have a plan to hurt others: No Plan service: No Current occupational status: disabled Cognitive needs: No Hearing needs: No Vision needs: No Physical Exam ED Vital Signs: Vital Signs - 24 hr 12/30/24 20:28 12/30/24 20:33 12/30/24 22:37 Temperature 98.3 F 98.0 F 98.1 F Pulse Rate 81 84 77 Respiratory Rate 18 12 12 Blood Pressure 116/78 112/71 127/81 Pulse Oximetry 97 95 99 Oxygen Delivery Method Room Air Room Air Room Air BMI result Body Mass Index 23.7 Vital signs have been reviewed and appear to be correct. Blood pressure elevated. Heart rate normal. Respiratory rate normal. Temperature normal. Oxygen saturation normal. Appearance: Alert. Oriented X3. No acute distress. Head: Normal external exam. Normocephalic. Atraumatic. No Dickson signs noted. No raccoon eyes noted Eyes: PERRLA. EOMI. Conjunctiva and sclera normal. Eyelids normal. ENT: TM's Normal. Pharynx normal. Uvula midline. Moist mucous membranes. No trismus noted. No drooling noted. No muffled voice noted. Neck: Normal inspection. Neck supple. FROM. No adenopathy. Thyroid Normal. No meningeal signs. No neck mass noted. CVS: Normal heart rate and rhythm. Heart sound normal. No murmurs noted. Pulses normal throughout. Respiratory: No respiratory distress. Painless inspiration. Breath sounds normal. No wheezes/rales/rhonchi noted. Chest nontender. No accessory muscle usage noted or decreased air movement noted. Abdomen: Soft , mild mid abdominal tenderness without rebound tenderness or guarding.Bowel sounds normal in all 4 quadrants. No distention noted. No organomegaly noted. No visible injury noted. Back: No CVA tenderness. Full range of motion noted. Skin: Skin warm and dry. Normal skin color. Normal skin turgor. No rashes/lesions/lacerations noted. Extremities: No lower extremity edema. Extremities exhibit normal range of motion. Extremities nontender. Neuro: Oriented X 3. Cranial nerve exam: II-XII are grossly intact No motor deficit. No sensory deficit. Reflexes normal. Course Reevaluation(s) Reevaluation #1: Patient walked out, left before full evaluation, labs overall at his baseline, CT of the abdomen pelvis was unremarkable for acute findings except for a spondylitic change in the lumbosacral region with T12 compression fracture. Patient walked out, no SI, no HI, no hallucination, walking unsteady gait appeared to be capable and make his own decision. Time: 23:37 Medical Decision Making Differential Diagnosis Differential Diagnoses: The differential diagnosis associated with the presentation includes ( acute appendicitis, perforated viscus, colitis, diverticulitis, electrolyte derangement, severe anemia, pancreatitis, gastritis.) Admission/Observation Consideration of admission/observation: Escalation of care including admission/observation considered Lab Data MDM Lab Attestation statement: I reviewed the patient's lab results. 12/30/24 20:47 12/30/24 20:47 Labs: Lab Results 12/30/24 12/30/24 12/30/24 Range/Units 20:47 20:58 20:59 WBC 6.1 (4.8-10.8) X10*3/uL RBC 4.64 (4.60-5.80) X10*6/uL Hgb 15.1 (14.0-18.0) g/dl Hct 41.1 L (42.0-52.0) % MCV 88.6 (80.0-98.0) fL MCH 32.5 (27.0-33.0) pg MCHC 36.7 H (31.0-36.0) g/dl RDW 12.3 (11.0-16.0) % Plt Count 277 (160-400) X10*3/uL MPV 10.2 (9.4-12.4) fL Immature Gran % (Auto) 0.3 (0.0-0.4) % Neut % (Auto) 60.6 (45-73) % Lymph % (Auto) 28.1 (20-40) % [place] % (Auto) 6.4 (2-11) % Eos % (Auto) 3.9 (0-4) % Baso % (Auto) 0.7 (0-2) % Lymph # (Auto) 1.7 (1.2-4.9) X10*3/uL [place] # (Auto) 0.4 (0.1-1.2) X10*3/uL Eos # (Auto) 0.2 (0.0-0.4) X10*3/uL Baso # (Auto) 0.0 (0.0-0.2) X10*3/uL Abs Immat Gran (auto) 0.02 (0.00-0.03) X10*3/uL Absolute Neuts (auto) 3.7 (2.0-8.3) x10*3/uL Absolute Nucleated RBC 0.000 (0.0-0.012) X10*3/uL Nucleated RBC % (auto) 0.0 (0.0-0.2) /100WBC Sodium 142 (135-145) mmol/L Potassium 3.5 (3.3-5.1) mmol/L Chloride 108 (96-108) mmol/L Carbon Dioxide 24 (22-29) mmol/L Anion Gap 14 (12-20) BUN 12 (9-16) mg/dL Creatinine 0.96 (0.5-1.4) mg/dL Estim Creat Clear Calc 110.0 Estimated GFR > 60 Random Glucose 154 H (60-115) mg/dL Calcium 8.9 D (8.4-10.2) mg/dL Total Bilirubin 0.8 (0.0-1.0) mg/dL AST 24 (5-37) U/L ALT 26 (0-40) U/L Alkaline Phosphatase 65 (39-117) U/L Troponin I High Sens < 2.7 (<3.5-35.0) ng/L Total Protein 7.1 (6.5-8.0) g/dL Albumin 4.3 (3.5-5.0) g/dL Lipase 33 (8-78) U/L Urine Color Dark Yellow Urine Appearance Clear Urine pH 5.5 (5.0-9.0) Ur Specific [place] 1.025 (1.005-1.025) Urine Protein Negative (Neg-Trace) mg/dL Urine Glucose (UA) Negative (Negative) mg/dL Urine Ketones Trace (Negative) mg/dL Urine Blood Negative (Negative) Urine Nitrite Negative (Negative) Ur Leukocyte Esterase Negative (Negative) Urine RBC 0-2 (0-2) /HPF Urine WBC 0-5 (0-5) /HPF Ur Squamous Epith Cells 0-2 (0-2) /HPF Urine Bacteria None Seen (None Seen) Hyaline Casts 0-2 (0-2) /LPF Urine Opiates Screen Not Detected (Not Detect) Ur Buprenorphine Scrn Not Detected (Not Detect) ng/mL Ur Oxycodone Screen Not Detected (Not Detect) ng/mL Urine Methadone Screen Not Detected (Not Detect) ng/mL Urine Fentanyl Screen Not Detected (Not Detect) Ur Barbiturates Screen Not Detected (Not Detect) Ur Phencyclidine Scrn Not Detected (Not Detect) Ur Amphetamines Screen Not Detected (Not Detect) U Benzodiazepines Scrn Not Detected (Not Detect) Urine Cocaine Screen Not Detected (Not Detect) U Marijuana (THC) Screen Not Detected (Not Detect) Ethyl Alcohol < 10 mg/dL Independent Interpretation I performed an independent interpretation of an: CT Scan ( Abdomen and pelvis:Bibasilar atelectatic/dependent changes. Gallbladder is mostly contracted. No intra or extrahepatic ductal dilation. Solid organs are within normal limits. No bowel obstruction, pneumoperitoneum, or pneumatosis. Pelvic contents unremarkable. Normal appendix. Severe spondylosi) Radiology Impression Discussion of test interpretation with radiology: I have reviewed the radiologist's reading. Medications Administered Discontinued Medications Generic Name Dose Route Start Last Admin Trade Name Freq PRN Reason Stop Dose Admin Famotidine 20 mg 12/30/24 21:13 12/30/24 21:24 Famotidine/Pf 20 Mg/2 Ml Vial IVPUSH 12/30/24 21:14 20 mg ONCE ONE Administration Sodium Chloride 1,000 mls @ 999 mls/hr 12/30/24 21:13 12/30/24 23:06 Ns IV 12/30/24 22:13 Infused .Q1H1M ONE Infusion Iohexol 85 ml 12/30/24 21:49 12/30/24 21:50 Iohexol 350 Mg/Ml 100 Ml Infus..Btl IV 12/30/24 21:50 85 ml ONCE ONE Administration Ondansetron HCl 4 mg 12/30/24 21:13 12/30/24 21:24 Ondansetron Hcl 4 Mg/2 Ml Vial IVPUSH 12/30/24 21:14 4 mg ONCE ONE Administration Discharge Plan Discharge Clinical Impression: Abdominal pain, Gastritis Patient Disposition: Left W/O Completing Treatment Prescriptions: No Action acetaminophen [Tylenol Arthritis Pain] 650 mg tablet extended release 650 mg PO Q12H 30 Days Qty: 60 0RF omeprazole 20 mg capsule,delayed release(DR/EC) 20 mg PO DAILY 30 Days Qty: 30 1RF No Known Home Meds Print Language: Other
[2024-12-30 21:21] LABS: Troponin-I High Sensitivity < 2.7 ng/L (<3.5-35.0)
[2024-12-30] MEDS: Famotidine/PF 20 MG/2 ML VIAL IVPUSH (21:24)
[2024-12-30] MEDS: ondansetron HCL 4 MG/2 ML VIAL IVPUSH (21:24)
[2024-12-30] MEDS: 0.9 % Sodium Chloride 1,000 ML 999 ML IV (21:24)
[2024-12-30] MEDS: iohexoL 350 MG/ML 100 ML INFUS..BTL 85 ML IV (21:50)
[2024-12-30 22:07] LABS: Appearance Urine Clear; Color Urine Dark Yellow; Glucose Urine UA Negative (Negative); Leukocyte Esterase Urine Negative (Negative); Nitrite Urine Negative (Negative); PH 5.5 (5.0-9.0); Specific Gravity - Urine 1.025 (1.005-1.025); Urine Blood Negative (Negative); Urine Ketones Trace mg/dL (Negative); Urine Protein Negative (Neg-Trace)
[2024-12-30 22:12] LABS: Bacteria Urine None Seen (None Seen); Hyaline Casts Urine 0-2 /LPF (0-2); RBC Urine 0-2 /HPF (0-2); Squamous Epithelial Cell Urine 0-2 /HPF (0-2); WBC Urine 0-5 /HPF (0-5)
[2024-12-30 22:17] LABS: Amphetamine Screen Urine Not Detected (Not Detect); Barbiturates, Urine Not Detected (Not Detect); Benzodiazepines Screen Urine Not Detected (Not Detect); Buprenorphine Scr Not Detected (Not Detect); Cannabinoid Screen Urine Not Detected (Not Detect); Cocaine Screen Urine Not Detected (Not Detect); Fentanyl, urine Not Detected (Not Detect); Methadone Screen, Urine Not Detected (Not Detect); Opiate Screen Urine Not Detected (Not Detect); Oxycodone Screen Urine Not Detected (Not Detect); Phencyclidine Screen Urine Not Detected (Not Detect)
[2024-12-30 22:37] VITALS: BP 127/81; PULSE 77; RESP 12; TEMP 36.7; O2SAT 99
--- NOTE | 2024-12-30 23:31 | PC.NURSE ---
This nurse called to the ED exit doors as pt is requesting to leave. MD aware and speaking with pt. Pt is aox4, ambulating with a steady gait. Self removed IV line. Site is not bleeding and no bruising noted. Pt declined dressing the site. Per MD, is stable to leave and will be discharged. Charge nurse aware.
== END 2024-12-30 23:53 | disposition left against medical advice (07) ==
PROVIDERS: Emergency Provider Emergency Medicine
DX: K29.70 Gastritis, unspecified, without bleeding (principal); R10.9 Unspecified abdominal pain; Z79.899 Other long term (current) drug therapy
CPT/HCPCS: 36415; 74177; 80053; 80307; 81001; 83690; 84484; 85025; 93005; 96361; 96374; 96375; 99284; 99285; J2405; Q9967

== ENCOUNTER → 2024-12-30 20:38 | Outpatient (BNV) | payer OTHER, SELFPAY | PROVIDERS: Emergency Provider Emergency Medicine; Visit Provider Internal Medicine Cardiovascular Disease | DX: R55 Syncope and collapse (principal) | CPT/HCPCS: 93010 ==

== ENCOUNTER → 2024-12-30 21:13 | Outpatient (BNV) | payer OTHER, SELFPAY | PROVIDERS: Emergency Provider Emergency Medicine; Visit Provider Student in an Organized Health Care Education/Training Program | DX: R10.9 Unspecified abdominal pain (principal); R11.2 Nausea with vomiting, unspecified; R19.7 Diarrhea, unspecified | CPT/HCPCS: 74177 ==

== ENCOUNTER 2025-01-03 04:43 | Emergency (ER) | payer OTHER, SELFPAY ==
--- NOTE | 2025-01-03 | ECG_ITS ---
Test Reason : CP Blood Pressure : */* mmHG Vent. Rate : 87 BPM Atrial Rate : 87 BPM P-R Int : 126 ms QRS Dur : 92 ms QT Int : 356 ms P-R-T Axes : 76 39 49 degrees QTcB Int : 428 ms Normal sinus rhythm Normal ECG When compared with ECG of 30-Dec-2024 20:49, No significant change was found Referred By: Generic ED Physician Electronically Signed By: Wesley Truong
[2025-01-03 04:53] VITALS: BP 127/85; PULSE 86; RESP 17; TEMP 36.4; O2SAT 96; BMI 21.4
[2025-01-03 05:00] LABS: Basophils Absolute Auto 0.1 X10*3/uL (0.0-0.2); Basophils Percent Auto 0.9 % (0-2); Eosinophils Absolute Auto 0.1 X10*3/uL (0.0-0.4); Eosinophils Percent Auto 2.3 % (0-4); Hematocrit 40.9 % (42.0-52.0); Hemoglobin 15.2 g/dl (14.0-18.0); Imm Gran Abs Auto 0.02 X10*3/uL (0.00-0.03); Imm Gran Pct Auto 0.4 % (0.0-0.4); Lymphocytes Absolute Auto 1.2 X10*3/uL (1.2-4.9); Lymphocytes Percent Auto 21.3 % (20-40); MANUAL DIFF FLAG NO; Mean Corpuscular HGB Conc 37.2 g/dl (31.0-36.0); Mean Corpuscular Hemoglobin 32.3 pg (27.0-33.0); Mean Corpuscular Volume 86.8 fL (80.0-98.0); Mean Platelet Volume 9.8 fL (9.4-12.4); Monocytes Absolute Auto 0.5 X10*3/uL (0.1-1.2); Monocytes Percent Auto 8.3 % (2-11); Neutrophils Absolute Auto 3.8 x10*3/uL (2.0-8.3); Neutrophils Percent Auto 66.8 % (45-73); Platelet Count 307 X10*3/uL (160-400); Red Blood Count 4.71 X10*6/uL (4.60-5.80); Red Cell Distribution Width 12.1 % (11.0-16.0); White Blood Count 5.7 X10*3/uL (4.8-10.8)
--- NOTE | 2025-01-03 05:03 | MHC.EDTECH ---
ekg and labs done on arrival. pt changed into hospital attire and placed on [employer] crm developer.
[2025-01-03 05:24] LABS: Troponin-I High Sensitivity < 2.7 ng/L (<3.5-35.0)
[2025-01-03 05:27] LABS: Alanine Aminotransferase 25 U/L (0-40); Albumin Level 4.5 g/dL (3.5-5.0); Alkaline Phosphatase 62 U/L (39-117); Anion Gap 13 (12-20); Aspartate Amino Transferase 28 U/L (5-37); Bilirubin Direct 0.4 mg/dL (0.0-0.5); Bilirubin Total 1.4 mg/dL (0.0-1.0); Blood Urea Nitrogen 9 mg/dL (9-16); Calcium 9.5 mg/dL (8.4-10.2); Carbon Dioxide 24 mmol/L (22-29); Chloride 107 mmol/L (96-108); Creatinine Clr Calc Pharmacy 112.7; Estimated Glomerular Filt Rate > 60; Glucose Random 124 mg/dL (60-115); Sodium 140 mmol/L (135-145); Total Protein 7.6 g/dL (6.5-8.0)
--- NOTE | 2025-01-03 05:27 | PC.NURSE ---
Pt brought to [facility] for treatment assumed care of pt at this time. A&Ox3 skin pwd respirations even unlabored. Endorsing mid sternal non radiating chest pain sharp in nature beginning while sleeping around 0400. Denies accompanying symptoms. NSR on night monitor, labs drawn pending results. Awaiting primary provider eval, aware of plan of care.
--- NOTE | 2025-01-03 06:07 | ED_ITS ---
HPI - Chest Pain General Chief Complaint: Chest Pain Stated Complaint: CP Time Seen by Provider: 01/03/25 06:06 Source: patient Mode of arrival: ambulatory Limitations: no limitations History of Present Illness ED Provider: DR. Alva HPI narrative: 49-year-old male with no significant past medical history presented for evaluation of epigastric/low chest pain patient thinks it is his acid reflux, no SOB, pain started at 04:00 o'clock, when he lay down pain is more, unclear if exertion will make the patient worse or better, patient is a vague historian. Pain is localized to the epigastric/low chest area, no radiation, no other associated symptoms, no nausea, no vomiting, report no alcohol use. Related Data Home Medications ?Medication ?Instructions ?Recorded ?Confirmed No Known Home Meds 07/17/24 07/17/24 Previous Rx's ?Medication ?Instructions ?Recorded acetaminophen 650 mg 650 mg PO Q12H 30 days #60 tabs 07/31/24 tablet,extended release (Tylenol Arthritis Pain) omeprazole 20 mg capsule,delayed 20 mg PO DAILY 30 days #30 caps 08/27/24 release Allergies Allergy/AdvReac Type Severity Reaction Status Date / Time No Known Allergies Allergy Verified 01/03/25 04:54 [No Known Allergies*] Review of Systems 2 Review of Systems: All other systems are reviewed and are negative Constitutional: Reports as per HPI and Reports no additional constitutional complaints Eyes: Reports as per HPI and Reports no additional eye complaints Reports system reviewed and no additional complaints, except as documented Cardiovascular: Reports as per HPI and Reports no additional cardiovascular complaints Respiratory: Reports as per HPI and Reports no additional respiratory complaints Gastrointestinal: Reports as per HPI and Reports no additional gastrointestinal complaints Genitourinary: Reports no additional female genitourinary complaints Musculoskeletal: Reports no additional musculoskeletal complaints Skin/Breast: Reports system reviewed and no additional complaints, except as docu Psychiatric: Reports no additional psychiatric complaints Endocrine: Reports no additional endocrine complaints Hematologic/Lymphatic: Reports no additional hematologic/lymphatic complaints Allergic/Immunologic: Reports no additional allergic/immunologic complaints Reports system reviewed and no additional complaints, except as documented and Reports Abnormal speech present [facility] Past Medical History Surgical History History of lumbar fusion Family History Family History Father OCD (obsessive compulsive disorder) History of ETOH abuse Mother Heart murmur, aortic Brother In good health Daughter In good health Social History Social History Housing: Apartment Unable to assess alcohol history related to: Unknown Alcohol intake: current Alcohol intake frequency: does not drink Alcohol type: beer and hard liquor Patient Tobacco Use Status: Never used Tobacco Smoked in Last 30 Days: No e-Cigarette/Vaping Use: Never Used Second Hand Smoke Exposure: No Use of substances other than those prescribed or required for medical reasons: No Advance Directives: No Advance Directives Information Provided: Yes Do you have a plan to hurt others: No Plan service: No Current occupational status: disabled Cognitive needs: No Hearing needs: No Vision needs: No Physical Exam 2 Vital Signs: Vital Signs: Last Vital Signs Temp 97.6 F 01/03/25 04:53 Pulse 86 01/03/25 04:53 Resp 17 01/03/25 04:53 BP 127/85 01/03/25 04:53 Pulse Ox 96 01/03/25 04:53 O2 Del Method Room Air 01/03/25 04:53 BMI result Body Mass Index 21.4 Vital signs have been reviewed and appear to be correct. Blood pressure elevated. Heart rate normal. Respiratory rate normal. Temperature normal. Oxygen saturation normal. Appearance: Alert. Oriented X3. No acute distress. Head: Normal external exam. Normocephalic. Atraumatic. No Dickson signs noted. No raccoon eyes noted Eyes: PERRLA. EOMI. Conjunctiva and sclera normal. Eyelids normal. ENT: TM's Normal. Pharynx normal. Uvula midline. Moist mucous membranes. No trismus noted. No drooling noted. No muffled voice noted. Neck: Normal inspection. Neck supple. FROM. No adenopathy. Thyroid Normal. No meningeal signs. No neck mass noted. CVS: Normal heart rate and rhythm. Heart sound normal. No murmurs noted. Pulses normal throughout. Respiratory: No respiratory distress. Painless inspiration. Breath sounds normal. No wheezes/rales/rhonchi noted. Chest nontender. No accessory muscle usage noted or decreased air movement noted. Abdomen: Soft and nontender. Bowel sounds normal in all 4 quadrants. No distention noted. No organomegaly noted. No visible injury noted. Back: No CVA tenderness. Full range of motion noted. Skin: Skin warm and dry. Normal skin color. Normal skin turgor. No rashes/lesions/lacerations noted. Extremities: No lower extremity edema. Extremities exhibit normal range of motion. Extremities nontender. Neuro: Oriented X 3. Cranial nerve exam: II-XII are grossly intact No motor deficit. No sensory deficit. Reflexes normal. Course Reevaluation(s) Reevaluation #1: Chest pain/epigastric pain, patient eloped before chest x-ray and 2nd troponin. Time: 06:11 Medical Decision Making Differential Diagnosis Differential Diagnoses: The differential diagnosis associated with the presentation includes (Anxiety, ACS, pneumonia, pneumothorax, pleural effusion, GERD.) Admission/Observation Consideration of admission/observation: Escalation of care including admission/observation considered Lab Data MDM Lab Attestation statement: I reviewed the patient's lab results. 01/03/25 04:54 01/03/25 04:54 Labs: Lab Results 01/03/25 Range/Units 04:54 WBC 5.7 (4.8-10.8) X10*3/uL RBC 4.71 (4.60-5.80) X10*6/uL Hgb 15.2 (14.0-18.0) g/dl Hct 40.9 L (42.0-52.0) % MCV 86.8 (80.0-98.0) fL MCH 32.3 (27.0-33.0) pg MCHC 37.2 H (31.0-36.0) g/dl RDW 12.1 (11.0-16.0) % Plt Count 307 (160-400) X10*3/uL MPV 9.8 (9.4-12.4) fL Immature Gran % (Auto) 0.4 (0.0-0.4) % Neut % (Auto) 66.8 (45-73) % Lymph % (Auto) 21.3 (20-40) % Davison % (Auto) 8.3 (2-11) % Eos % (Auto) 2.3 (0-4) % Baso % (Auto) 0.9 (0-2) % Lymph # (Auto) 1.2 (1.2-4.9) X10*3/uL Davison # (Auto) 0.5 (0.1-1.2) X10*3/uL Eos # (Auto) 0.1 (0.0-0.4) X10*3/uL Baso # (Auto) 0.1 (0.0-0.2) X10*3/uL Abs Immat Gran (auto) 0.02 (0.00-0.03) X10*3/uL Absolute Neuts (auto) 3.8 (2.0-8.3) x10*3/uL Absolute Nucleated RBC 0.000 (0.0-0.012) X10*3/uL Nucleated RBC % (auto) 0.0 (0.0-0.2) /100WBC Sodium 140 (135-145) mmol/L Potassium 4.0 (3.3-5.1) mmol/L Chloride 107 (96-108) mmol/L Carbon Dioxide 24 (22-29) mmol/L Anion Gap 13 (12-20) BUN 9 (9-16) mg/dL Creatinine 0.86 (0.5-1.4) mg/dL Estim Creat Clear Calc 112.7 Estimated GFR > 60 Random Glucose 124 H (60-115) mg/dL Calcium 9.5 D (8.4-10.2) mg/dL Total Bilirubin 1.4 H (0.0-1.0) mg/dL Direct Bilirubin 0.4 (0.0-0.5) mg/dL AST 28 (5-37) U/L ALT 25 (0-40) U/L Alkaline Phosphatase 62 (39-117) U/L Troponin I High Sens < 2.7 (<3.5-35.0) ng/L Total Protein 7.6 (6.5-8.0) g/dL Albumin 4.5 (3.5-5.0) g/dL Independent Interpretation I performed an independent interpretation of an: Plain X-Ray Radiology Impression Discussion of test interpretation with radiology: I have reviewed the radiologist's reading. Discharge Plan Discharge Clinical Impression: Chest pain, Anxiety Patient Disposition: Left W/O Completing Treatment Prescriptions: No Action acetaminophen [Tylenol Arthritis Pain] 650 mg tablet extended release 650 mg PO Q12H 30 Days Qty: 60 0RF omeprazole 20 mg capsule,delayed release(DR/EC) 20 mg PO DAILY 30 Days Qty: 30 1RF No Known Home Meds Discharge Date/Time: 01/03/25 06:27
--- NOTE | 2025-01-03 06:25 | PC.NURSE ---
Pt was seen by security attempting to leave through ambulance bay. Security approached pt who then ran out ambulance bay door and through parking lot. notified.
== END 2025-01-03 06:27 | disposition left against medical advice (07) ==
PROVIDERS: Emergency Provider Emergency Medicine
DX: R07.9 Chest pain, unspecified (principal); F41.9 Anxiety disorder, unspecified
CPT/HCPCS: 36415; 80048; 80076; 84484; 85025; 93005

== ENCOUNTER → 2025-01-03 04:47 | Outpatient (BNV) | payer OTHER, SELFPAY | PROVIDERS: Emergency Provider Emergency Medicine; Visit Provider Internal Medicine Cardiovascular Disease | DX: R07.9 Chest pain, unspecified (principal) | CPT/HCPCS: 93010 ==

== ENCOUNTER 2025-01-03 16:48 | Emergency (ER) | payer OTHER, SELFPAY ==
--- NOTE | 2025-01-03 | ECG_ITS ---
Test Reason : CP Blood Pressure : */* mmHG Vent. Rate : 80 BPM Atrial Rate : 80 BPM P-R Int : 132 ms QRS Dur : 88 ms QT Int : 368 ms P-R-T Axes : 70 26 36 degrees QTcB Int : 424 ms Normal sinus rhythm Normal ECG When compared with ECG of 03-Jan-2025 04:47, No significant change was found Referred By: Generic ED Physician Electronically Signed By: Wesley Truong
[2025-01-03 16:53] VITALS: BP 113/65; BP 116/74; PULSE 84; PULSE 88; RESP 16; TEMP 36.8; O2SAT 96; O2SAT 97; BMI 26.5
[2025-01-03 17:35] LABS: MANUAL DIFF FLAG NO
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
[2025-01-03 17:50] LABS: Basophils Absolute Auto 0.1 X10*3/uL (0.0-0.2); Basophils Percent Auto 0.7 % (0-2); Eosinophils Absolute Auto 0.1 X10*3/uL (0.0-0.4); Eosinophils Percent Auto 1.4 % (0-4); Hematocrit 40.1 % (42.0-52.0); Hemoglobin 14.5 g/dl (14.0-18.0); Imm Gran Abs Auto 0.03 X10*3/uL (0.00-0.03); Imm Gran Pct Auto 0.3 % (0.0-0.4); Lymphocytes Absolute Auto 1.9 X10*3/uL (1.2-4.9); Lymphocytes Percent Auto 21.8 % (20-40); Mean Corpuscular HGB Conc 36.2 g/dl (31.0-36.0); Mean Corpuscular Hemoglobin 31.9 pg (27.0-33.0); Mean Corpuscular Volume 88.1 fL (80.0-98.0); Mean Platelet Volume 9.8 fL (9.4-12.4); Monocytes Absolute Auto 0.8 X10*3/uL (0.1-1.2); Monocytes Percent Auto 8.9 % (2-11); Neutrophils Absolute Auto 5.8 x10*3/uL (2.0-8.3); Neutrophils Percent Auto 66.9 % (45-73); Platelet Count 291 X10*3/uL (160-400); Red Blood Count 4.55 X10*6/uL (4.60-5.80); Red Cell Distribution Width 12.4 % (11.0-16.0); White Blood Count 8.7 X10*3/uL (4.8-10.8)
[2025-01-03 18:02] LABS: Alanine Aminotransferase 24 U/L (0-40); Albumin Level 4.4 g/dL (3.5-5.0); Alkaline Phosphatase 56 U/L (39-117); Anion Gap 12 (12-20); Aspartate Amino Transferase 39 U/L (5-37); Bilirubin Total 1.5 mg/dL (0.0-1.0); Blood Urea Nitrogen 12 mg/dL (9-16); Calcium 9.3 mg/dL (8.4-10.2); Carbon Dioxide 28 mmol/L (22-29); Chloride 103 mmol/L (96-108); Creatinine Clr Calc Pharmacy 107.7; Estimated Glomerular Filt Rate > 60; Ethanol < 10 mg/dL; Glucose Random 111 mg/dL (60-115); Potassium 4.3 mmol/L (3.3-5.1); Sodium 139 mmol/L (135-145); Total Protein 7.2 g/dL (6.5-8.0); Troponin-I High Sensitivity < 2.7 ng/L (<3.5-35.0)
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
[2025-01-03 18:15] LABS: Influenza A PCR NEGATIVE (Negative); Influenza B PCR NEGATIVE (Negative); Resp Syncy Virus RNA Qual PCR NEGATIVE (Negative); SARS COV2 PCR INHOUSE NEGATIVE (Negative)
[2025-01-03 18:55] VITALS: BP 113/65; PULSE 84; RESP 16; TEMP 36.8; O2SAT 97
== END 2025-01-03 18:56 | disposition home or self-care (01) ==
PROVIDERS: Emergency Provider Internal Medicine; PCP Physician Assistant
DX: R07.89 Other chest pain (principal); R05.9 Cough, unspecified; F10.90 Alcohol use, unspecified, uncomplicated; Y90.0 Blood alcohol level of less than 20 mg/100 ml; Z03.818 Encounter for observation for suspected exposure to other biological agents ruled out; Z79.899 Other long term (current) drug therapy
CPT/HCPCS: 0241U; 36415; 80048; 80053; 80076; 80307; 84484; 85025; 93005; 99283; 99285

== ENCOUNTER 2025-01-05 20:44 | Emergency (ER) | payer OTHER, SELFPAY ==
--- NOTE | ~2025-01-05 | XR_ITS ---
CLINICAL HISTORY: chest pain Chest X-ray, 1 View COMPARISON: CR/[facility]/SR - XR CHEST 2V - 12/20/23 18:18 EST FINDINGS: No consolidation. No pleural effusion. No pneumothorax. No cardiomegaly. No acute fracture. Chronic right clavicle fracture. IMPRESSION: No acute findings. This document has been electronically signed by: Valente Hanson MD on 01/05/2025 22:07:58
[2025-01-05 20:49] VITALS: BP 132/82; BP 135/67; PULSE 120; PULSE 95; RESP 20; TEMP 36.4; O2SAT 100; O2SAT 97; BMI 23.1
--- NOTE | 2025-01-05 20:55 | ECG_ITS ---
Test Reason : chest pain Blood Pressure : */* mmHG Vent. Rate : 97 BPM Atrial Rate : 97 BPM P-R Int : 130 ms QRS Dur : 88 ms QT Int : 352 ms P-R-T Axes : 78 50 49 degrees QTcB Int : 447 ms Normal sinus rhythm Normal ECG When compared with ECG of 03-Jan-2025 16:54, No significant change was found Referred By: Generic ED Physician Electronically Signed By: MARY ROSS MD
[2025-01-05 21:04] VITALS: BP 132/82; PULSE 95; RESP 20; TEMP 36.4; O2SAT 100
[2025-01-05 21:16] LABS: MANUAL DIFF FLAG NO
--- NOTE | 2025-01-05 21:21 | ED_ITS ---
HPI - Chest Pain General Chief Complaint: Chest Pain Stated Complaint: CHEST PAIN HX 24 HRS Time Seen by Provider: 01/05/25 21:21 Source: patient Mode of arrival: ambulatory Limitations: no limitations History of Present Illness ED Provider: HPI narrative: Patient's history of anxiety, GERD homeless for last few days been here multiple times in last 2 days but chest pain with workup today comes again pain in mid sternum no radiation pain no shortness of breath Related Data Home Medications ?Medication ?Instructions ?Recorded ?Confirmed No Known Home Meds 07/17/24 07/17/24 Previous Rx's ?Medication ?Instructions ?Recorded acetaminophen 650 mg 650 mg PO Q12H 30 days #60 tabs 07/31/24 tablet,extended release (Tylenol Arthritis Pain) omeprazole 20 mg capsule,delayed 20 mg PO DAILY 30 days #30 caps 08/27/24 release Allergies Allergy/AdvReac Type Severity Reaction Status Date / Time No Known Allergies Allergy Verified 01/05/25 20:53 [No Known Allergies*] Review of Systems 2 Review of Systems: Yes all other systems are reviewed and are negative [facility] Past Medical History Surgical History History of lumbar fusion Family History Family History Father OCD (obsessive compulsive disorder) History of ETOH abuse Mother Heart murmur, aortic Brother In good health Daughter In good health Social History Social History Housing: Apartment Unable to assess alcohol history related to: Unknown Alcohol intake: current Alcohol intake frequency: does not drink Alcohol type: hard liquor Patient Tobacco Use Status: Never used Tobacco e-Cigarette/Vaping Use: Never Used Second Hand Smoke Exposure: No Substance Use Type: Marijuana service: No Current occupational status: disabled Cognitive needs: No Hearing needs: No Vision needs: No Physical Exam 2 Vital Signs: Vital Signs: Last Vital Signs Temp 97.9 F 01/06/25 06:06 Pulse 79 01/06/25 06:06 Resp 15 01/06/25 06:06 BP 108/72 01/06/25 06:06 Pulse Ox 97 01/06/25 06:06 O2 Del Method Room Air 01/06/25 06:06 BMI result Body Mass Index 23.1 Appearance: Alert. Oriented X3. No acute distress. Eyes: No pallor no icterus ENT: Pharynx normal. Oral Mucosa moist Neck: Normal inspection. Neck supple. CVS: Normal heart rate and rhythm. Pulses normal. Respiratory: No respiratory distress. Equal air entry bilateral, no wheezing/rales/rhonchi Abdomen: Soft and mild epigastric tenderness Bowel sounds are present, no mass palpable, no CVA tenderness Skin: Skin warm and dry. Normal skin color. Normal skin turgor. Extremities: No lower extremity edema. No calf tenderness Neuro: Oriented X 3. No motor deficit. No sensory deficit.No cerebellar signs , cranial nerves II-XII intact Medications Administered Discontinued Medications Generic Name Dose Route Start Last Admin Trade Name Freq PRN Reason Stop Dose Admin Sodium Chloride 1,000 mls @ 999 mls/hr 01/05/25 22:43 01/06/25 00:06 Ns IV 01/05/25 23:43 Infused .Q1H1M ONE Infusion Sodium Chloride 1,000 mls @ 999 mls/hr 01/06/25 04:04 01/06/25 06:05 Ns IV 01/06/25 05:04 Infused .Q1H1M ONE Infusion Medical Decision Making Medical Decision Making [facility] Narrative: Patient has atypical chest pain with anxiety homeless been here multiple times last 3 days EKG without any ischemic changes patient's lab workup showed DARYN received 2 L of fluids with improvement in the creatinine troponin level patient advised to drink plenty of fluids discharge patient home Differential Diagnosis Differential Diagnoses: The differential diagnosis associated with the presentation includes ACS/non-STEMI/DARYN Lab Data [facility] Lab Attestation statement: I reviewed the patient's lab results. 01/05/25 21:12 01/06/25 01:37 Labs: Lab Results 01/05/25 01/06/25 Range/Units 21:12 01:37 WBC 16.2 H (4.8-10.8) X10*3/uL RBC 4.79 (4.60-5.80) X10*6/uL Hgb 15.5 (14.0-18.0) g/dl Hct 41.8 L (42.0-52.0) % MCV 87.3 (80.0-98.0) fL MCH 32.4 (27.0-33.0) pg MCHC 37.1 H (31.0-36.0) g/dl RDW 12.1 (11.0-16.0) % Plt Count 271 (160-400) X10*3/uL MPV 10.3 (9.4-12.4) fL Immature Gran % (Auto) 0.4 (0.0-0.4) % Neut % (Auto) 89.4 H (45-73) % Lymph % (Auto) 3.5 L (20-40) % [place] % (Auto) 6.3 (2-11) % Eos % (Auto) 0.0 (0-4) % Baso % (Auto) 0.4 (0-2) % Lymph # (Auto) 0.6 L (1.2-4.9) X10*3/uL [place] # (Auto) 1.0 (0.1-1.2) X10*3/uL Eos # (Auto) 0.0 (0.0-0.4) X10*3/uL Baso # (Auto) 0.1 (0.0-0.2) X10*3/uL Abs Immat Gran (auto) 0.06 H (0.00-0.03) X10*3/uL Absolute Neuts (auto) 14.5 H (2.0-8.3) x10*3/uL Absolute Nucleated RBC 0.000 (0.0-0.012) X10*3/uL Nucleated RBC % (auto) 0.0 (0.0-0.2) /100WBC Sodium 138 138 (135-145) mmol/L Potassium 4.3 4.1 (3.3-5.1) mmol/L Chloride 102 105 (96-108) mmol/L Carbon Dioxide 20 L 23 (22-29) mmol/L Anion Gap 20 14 (12-20) BUN 19 H 21 H (9-16) mg/dL Creatinine 1.96 H 1.45 H (0.5-1.4) mg/dL Estim Creat Clear Calc 53.5 72.3 Estimated GFR 36 52 Random Glucose 170 H 96 (60-115) mg/dL Calcium 9.7 9.1 D (8.4-10.2) mg/dL Troponin I High Sens 32.2 D 34.1 (<3.5-35.0) ng/L Independent Interpretation I performed an independent interpretation of an: EKG Interpretation: Normal sinus rhythm heart rate 97 beats per minute normal interval normal axis no acute ST-T changes no acute ischemia impression normal EKG Discharge Plan Discharge Clinical Impression: Atypical chest pain, Acute renal failure, Dehydration Patient Disposition: Home, Self-Care Instructions: Chest Pain (ED), Dehydration (ED), Acute Kidney Injury (DC) Additional Instructions: You have significant dehydration causing a damage to the kidney Drink plenty of fluids Follow the PCP as needed Prescriptions: No Action acetaminophen [Tylenol Arthritis Pain] 650 mg tablet extended release 650 mg PO Q12H 30 Days Qty: 60 0RF omeprazole 20 mg capsule,delayed release(DR/EC) 20 mg PO DAILY 30 Days Qty: 30 1RF No Known Home Meds Interventions: ED Discharge Assessment Last Done: 01/06/25 06:06 Discharge Date/Time: 01/06/25 06:15 Print Language: Turkish
[2025-01-05 21:32] LABS: Anion Gap 20 (12-20); Blood Urea Nitrogen 19 mg/dL (9-16); Calcium 9.7 mg/dL (8.4-10.2); Carbon Dioxide 20 mmol/L (22-29); Chloride 102 mmol/L (96-108); Creatinine Clr Calc Pharmacy 53.5; Estimated Glomerular Filt Rate 36; Glucose Random 170 mg/dL (60-115); Potassium 4.3 mmol/L (3.3-5.1); Sodium 138 mmol/L (135-145)
[2025-01-05 21:40] LABS: Basophils Absolute Auto 0.1 X10*3/uL (0.0-0.2); Basophils Percent Auto 0.4 % (0-2); Hematocrit 41.8 % (42.0-52.0); Hemoglobin 15.5 g/dl (14.0-18.0); Imm Gran Abs Auto 0.06 X10*3/uL (0.00-0.03); Imm Gran Pct Auto 0.4 % (0.0-0.4); Lymphocytes Absolute Auto 0.6 X10*3/uL (1.2-4.9); Lymphocytes Percent Auto 3.5 % (20-40); Mean Corpuscular HGB Conc 37.1 g/dl (31.0-36.0); Mean Corpuscular Hemoglobin 32.4 pg (27.0-33.0); Mean Corpuscular Volume 87.3 fL (80.0-98.0); Mean Platelet Volume 10.3 fL (9.4-12.4); Monocytes Percent Auto 6.3 % (2-11); Neutrophils Absolute Auto 14.5 x10*3/uL (2.0-8.3); Neutrophils Percent Auto 89.4 % (45-73); Platelet Count 271 X10*3/uL (160-400); Red Blood Count 4.79 X10*6/uL (4.60-5.80); Red Cell Distribution Width 12.1 % (11.0-16.0); White Blood Count 16.2 X10*3/uL (4.8-10.8)
[2025-01-05 21:41] LABS: Troponin-I High Sensitivity 32.2 ng/L (<3.5-35.0)
[2025-01-05] MEDS: 0.9 % Sodium Chloride 1,000 ML 999 ML IV (22:59)
[2025-01-05 23:00] VITALS: BP 119/70; PULSE 103; RESP 14; O2SAT 99
[2025-01-06 01:38] VITALS: BP 117/73; PULSE 86; RESP 11; O2SAT 99
[2025-01-06 01:55] LABS: Anion Gap 14 (12-20); Blood Urea Nitrogen 21 mg/dL (9-16); Calcium 9.1 mg/dL (8.4-10.2); Carbon Dioxide 23 mmol/L (22-29); Chloride 105 mmol/L (96-108); Creatinine Clr Calc Pharmacy 72.3; Estimated Glomerular Filt Rate 52; Glucose Random 96 mg/dL (60-115); Potassium 4.1 mmol/L (3.3-5.1); Sodium 138 mmol/L (135-145)
[2025-01-06 02:04] LABS: Troponin-I High Sensitivity 34.1 ng/L (<3.5-35.0)
[2025-01-06 04:14] VITALS: BP 108/72; PULSE 79; RESP 15; O2SAT 97
[2025-01-06] MEDS: 0.9 % Sodium Chloride 1,000 ML 999 ML IV (04:16)
[2025-01-06 06:06] VITALS: BP 108/72; PULSE 79; RESP 15; TEMP 36.6; O2SAT 97
== END 2025-01-06 06:15 | disposition home or self-care (01) ==
PROVIDERS: Emergency Provider Internal Medicine
DX: R07.89 Other chest pain (principal); E86.0 Dehydration; N17.9 Acute kidney failure, unspecified
CPT/HCPCS: 36415; 71045; 80048; 84484; 85025; 93005; 96360; 96361; 99284; 99285

== ENCOUNTER → 2025-01-05 20:55 | Outpatient (BNV) | payer OTHER, SELFPAY | PROVIDERS: Emergency Provider Internal Medicine; Visit Provider Internal Medicine Cardiovascular Disease | DX: R07.9 Chest pain, unspecified (principal) | CPT/HCPCS: 93010 ==

== ENCOUNTER → 2025-01-05 21:40 | Outpatient (BNV) | payer OTHER, SELFPAY | PROVIDERS: Emergency Provider Internal Medicine; Visit Provider Radiology Diagnostic Radiology | DX: R07.9 Chest pain, unspecified (principal) | CPT/HCPCS: 71045 ==

== ENCOUNTER 2025-01-06 23:49 | Emergency (ER) | payer OTHER, SELFPAY ==
[2025-01-06 23:58] VITALS: BP 130/80; PULSE 90; O2SAT 98
[2025-01-07 00:03] VITALS: BP 114/69; PULSE 91; RESP 18; TEMP 36.7; O2SAT 98; BMI 24.0
--- NOTE | 2025-01-07 00:47 | ED.PSYCH ---
HPI - Psych General Chief Complaint: Psychiatric Symptoms Stated Complaint: Panic attack Time Seen by Provider: 01/07/25 00:42 Source: patient and EMS Mode of arrival: EMS Limitations: no limitations History of Present Illness ED Provider: Dr. Jeanette Velásquez HPI Narrative: Patient comes to the emergency room via ambulance. According to the patient, he was having a panic attack. At this time, patient states that he feels more relaxed. Patient states that he is hearing voices, states that he hears a little chatter in the back of his head. Patient states that he is not suicidal or homicidal, no thoughts of hurting himself. Patient states that he does not want much to be done today, does not want any lab work done. Patient states that he feels well and is requesting to be discharged as soon as possible. Related Data Home Medications ?Medication ?Instructions ?Recorded ?Confirmed No Known Home Meds 07/17/24 07/17/24 Previous Rx's ?Medication ?Instructions ?Recorded acetaminophen 650 mg 650 mg PO Q12H 30 days #60 tabs 07/31/24 tablet,extended release (Tylenol Arthritis Pain) omeprazole 20 mg capsule,delayed 20 mg PO DAILY 30 days #30 caps 08/27/24 release Allergies Allergy/AdvReac Type Severity Reaction Status Date / Time No Known Allergies Allergy Verified 01/07/25 00:07 [No Known Allergies*] Review of Systems Review of Systems: Constitutional : No Weight loss, No Fever, No Chills, No Night Sweats, No Fatigue, No Malaise ENT/Mouth : No Hearing loss, No Ear Pain, No Nasal Congestion, No Sinus Pain, No Hoarseness, No sore throat, No Rhinorrhea, No Swallowing Difficulty Eyes: No Eye Pain, No Swelling, No Redness, No Foreign Body, No Discharge, No Vision Changes Cardiovascular : No Chest Pain, No SOB, No Dyspnea on Exertion, No Orthopnea, No Edema, No Palpitations Respiratory : No Cough, No Sputum, No Wheezing, No Smoke Exposure, No Dyspnea Gastrointestinal : No Nausea, No Vomiting, No Diarrhea, No Constipation, No abdominal Pain, No Hematochezia, No Melena Genitourinary : no irregular bleeding, No Dysuria, No Urinary Frequency, No Hematuria, No Urinary Incontinence, No Urgency, No Flank Pain, No Urinary Flow Changes, No Hesitancy Musculoskeletal : No joint pain, No Myalgias, No Joint Swelling Skin : No Skin Lesions, No rash Neuro : No Weakness, No Numbness, No Paresthesias, No Loss of Consciousness, No Dizziness, No Headache Psych : complaining of anxiety, patient had a panic attack, now more calm, No Depression, No SI/HI/AH/VH, patient states that he hears small voices in the back of his head, Heme/Lymph: No Bruising, No Bleeding,No Lymphadenopathy Endocrine : No Polyuria, No Polydipsia, No Temperature Intolerance [facility] Past Medical History Medical History Anxiety Surgical History History of lumbar fusion Family History Family History Father OCD (obsessive compulsive disorder) History of ETOH abuse Mother Heart murmur, aortic Brother In good health Daughter In good health Social History Social History Housing: Apartment Unable to assess alcohol history related to: Unknown Alcohol intake: current Alcohol intake frequency: does not drink Alcohol type: hard liquor Patient Tobacco Use Status: Never used Tobacco e-Cigarette/Vaping Use: Never Used Second Hand Smoke Exposure: No Substance Use Type: Marijuana Advance Directives: No Advance Directives Information Provided: Yes Do you have a plan to hurt others: No Plan service: No Current occupational status: disabled Cognitive needs: No Hearing needs: No Vision needs: No Physical Exam Vital Signs: Vital Signs: Last Vital Signs Temp 98.0 F 01/07/25 00:03 Pulse 91 01/07/25 00:03 Resp 18 01/07/25 00:03 BP 114/69 01/07/25 00:03 Pulse Ox 98 01/07/25 00:03 O2 Del Method Room Air 01/07/25 00:03 BMI result Body Mass Index 24.0 Const: Other: Appearance: Alert. Oriented X3. No acute distress. Eyes: Pupils equal, round and reactive to light. ENT: Pharynx normal. Neck: Normal inspection. Neck supple. No lymph nodes noted. No crepitus CVS: Normal heart rate and rhythm. Pulses normal. Normal S1 and S2 Respiratory: No respiratory distress. Breath sounds normal. No Wheezing. No rales Abdomen: Soft and nontender. No rigidity. No distention. Skin: Skin warm and dry. Normal skin color. Normal skin turgor. Extremities: No lower extremity edema. No Lacerations. No Rash Neuro: Oriented X 3. No motor deficit. No sensory deficit. Moving all extremities. No slurred speech. CN 2 through 12 grossly intact Psych: calm, cooperative, normal affect Medical Decision Making Medical Decision Making MDM Narrative: patient was brought by ambulance. Patient states that he is not suicidal, not suicidal, patient is calm and cooperative. Patient states that he does not want any labs to be done, care team consult was offered, patient declined. Patient is clinically sober, all of patient's vitals are stable at this time, there is no reason to Section 12 the patient. As mentioned above, patient is alert and oriented x3, not SI, no HI, calm cooperative, clinically sober and stable to be discharged Discharge Plan Discharge Clinical Impression: Anxiety Patient Disposition: Home, Self-Care Instructions: Anxiety (ED) Additional Instructions: Please follow-up with your primary care physician tomorrow. If you have any worsening or new symptoms, please return to the emergency room or call 911 Prescriptions: No Action acetaminophen [Tylenol Arthritis Pain] 650 mg tablet extended release 650 mg PO Q12H 30 Days Qty: 60 0RF omeprazole 20 mg capsule,delayed release(DR/EC) 20 mg PO DAILY 30 Days Qty: 30 1RF No Known Home Meds Print Language: Spanish
--- NOTE | 2025-01-07 00:54 | PC.NURSE ---
this rn assumed care of pt, pt a&ox4, respirations even and unlabored. at this time, pt denies si/hi and denies hallucinations. aware and states pt will be safe for discharge. pt ambulatory with steady gait.
[2025-01-07 01:55] VITALS: BP 114/69; PULSE 91; RESP 18; TEMP 36.7; O2SAT 98
== END 2025-01-07 01:55 | disposition home or self-care (01) ==
PROVIDERS: Emergency Provider Emergency Medicine; PCP Physician Assistant
DX: F41.0 Panic disorder [episodic paroxysmal anxiety] (principal); F41.9 Anxiety disorder, unspecified
CPT/HCPCS: 99284

== ENCOUNTER 2025-02-13 17:40 | Emergency (ER) | payer OTHER, SELFPAY ==
[2025-02-13 17:52] VITALS: BMI 25.8
[2025-02-13 18:03] VITALS: BP 124/93; PULSE 113; RESP 18; TEMP 36.8; O2SAT 99
[2025-02-13 19:56] LABS: MANUAL DIFF FLAG NO
[2025-02-13 19:58] LABS: Basophils Absolute Auto 0.1 X10*3/uL (0.0-0.2); Basophils Percent Auto 0.6 % (0-2); Eosinophils Absolute Auto 0.1 X10*3/uL (0.0-0.4); Eosinophils Percent Auto 1.4 % (0-4); Hematocrit 42.1 % (42.0-52.0); Hemoglobin 14.9 g/dl (14.0-18.0); Imm Gran Abs Auto 0.02 X10*3/uL (0.00-0.03); Imm Gran Pct Auto 0.2 % (0.0-0.4); Lymphocytes Absolute Auto 1.7 X10*3/uL (1.2-4.9); Lymphocytes Percent Auto 18.4 % (20-40); Mean Corpuscular HGB Conc 35.4 g/dl (31.0-36.0); Mean Corpuscular Hemoglobin 31.6 pg (27.0-33.0); Mean Corpuscular Volume 89.4 fL (80.0-98.0); Mean Platelet Volume 9.5 fL (9.4-12.4); Monocytes Absolute Auto 0.7 X10*3/uL (0.1-1.2); Neutrophils Absolute Auto 6.6 x10*3/uL (2.0-8.3); Neutrophils Percent Auto 71.4 % (45-73); Platelet Count 265 X10*3/uL (160-400); Red Blood Count 4.71 X10*6/uL (4.60-5.80); Red Cell Distribution Width 11.9 % (11.0-16.0); White Blood Count 9.3 X10*3/uL (4.8-10.8)
[2025-02-13 20:11] LABS: Acetaminophen LAB < 3 mcg/mL (<30); Salicylate < 5.0 mg/dL (15-30)
[2025-02-13 20:12] LABS: Alanine Aminotransferase 21 U/L (0-40); Albumin Level 4.8 g/dL (3.5-5.0); Alkaline Phosphatase 58 U/L (39-117); Anion Gap 12 (12-20); Aspartate Amino Transferase 21 U/L (5-37); Bilirubin Total 1.2 mg/dL (0.0-1.0); Blood Urea Nitrogen 11 mg/dL (9-16); Calcium 9.7 mg/dL (8.4-10.2); Carbon Dioxide 29 mmol/L (22-29); Chloride 103 mmol/L (96-108); Creatinine Clr Calc Pharmacy 97.8; Estimated Glomerular Filt Rate > 60; Ethanol < 10 mg/dL; Glucose Random 118 mg/dL (60-115); Potassium 3.8 mmol/L (3.3-5.1); Sodium 140 mmol/L (135-145); Total Protein 7.4 g/dL (6.5-8.0)
--- NOTE | 2025-02-13 20:13 | PC.NURSE ---
patient appears to be at rest in room appears a little guarded, quiet, possibly internally preoccupied, pleasant and cooperative
--- NOTE | 2025-02-13 20:50 | PC.NURSE ---
patient reports feeling not being able to breathe, VSS normal, t/w asked if patient waanred ativn client declined,
[2025-02-13 20:53] VITALS: BP 139/77; PULSE 90; RESP 20; TEMP 37.2; O2SAT 100
--- NOTE | 2025-02-13 20:58 | ED.PSYCH ---
HPI - Psych General Chief Complaint: Psychiatric Symptoms Stated Complaint: auditory hallucinations Time Seen by Provider: 02/13/25 17:48 Source: patient and EMS Mode of arrival: EMS Limitations: no limitations History of Present Illness ED Provider: Dr. Jeanette Velásquez HPI Narrative: Patient comes to the emergency room via EMS. Patient was in the [place] [employer] [place], patient states that he was very anxious, having auditory hallucinations, hearing whispers, patient called EMS. Patient denies SI or HI. Related Data Home Medications ?Medication ?Instructions ?Recorded ?Confirmed No Known Home Meds 07/17/24 07/17/24 Previous Rx's ?Medication ?Instructions ?Recorded acetaminophen 650 mg 650 mg PO Q12H 30 days #60 tabs 07/31/24 tablet,extended release (Tylenol Arthritis Pain) omeprazole 20 mg capsule,delayed 20 mg PO DAILY 30 days #30 caps 08/27/24 release Allergies Allergy/AdvReac Type Severity Reaction Status Date / Time No Known Allergies Allergy Verified 02/13/25 17:55 [No Known Allergies*] Review of Systems Review of Systems: Constitutional : No Weight loss, No Fever, No Chills, No Night Sweats, No Fatigue, No Malaise ENT/Mouth : No Hearing loss, No Ear Pain, No Nasal Congestion, No Sinus Pain, No Hoarseness, No sore throat, No Rhinorrhea, No Swallowing Difficulty Eyes: No Eye Pain, No Swelling, No Redness, No Foreign Body, No Discharge, No Vision Changes Cardiovascular : No Chest Pain, No SOB, No Dyspnea on Exertion, No Orthopnea, No Edema, No Palpitations Respiratory : No Cough, No Sputum, No Wheezing, No Smoke Exposure, No Dyspnea Gastrointestinal : No Nausea, No Vomiting, No Diarrhea, No Constipation, No abdominal Pain, No Hematochezia, No Melena Genitourinary : no irregular bleeding, No Dysuria, No Urinary Frequency, No Hematuria, No Urinary Incontinence, No Urgency, No Flank Pain, No Urinary Flow Changes, No Hesitancy Musculoskeletal : No joint pain, No Myalgias, No Joint Swelling Skin : No Skin Lesions, No rash Neuro : No Weakness, No Numbness, No Paresthesias, No Loss of Consciousness, No Dizziness, No Headache Psych : No Anxiety/Panic, No Depression, No SI/HI/AH/VH, complaining of auditory hallucinations Heme/Lymph: No Bruising, No Bleeding,No Lymphadenopathy Endocrine : No Polyuria, No Polydipsia, No Temperature Intolerance [facility] Past Medical History Medical History Anxiety Surgical History History of lumbar fusion Family History Family History Father OCD (obsessive compulsive disorder) History of ETOH abuse Mother Heart murmur, aortic Brother In good health Daughter In good health Social History Social History Housing: Apartment Unable to assess alcohol history related to: Unknown Alcohol intake: current Alcohol intake frequency: does not drink Alcohol type: hard liquor Patient Tobacco Use Status: Never used Tobacco Smoked in Last 30 Days: Yes e-Cigarette/Vaping Use: Never Used Second Hand Smoke Exposure: No Use of substances other than those prescribed or required for medical reasons: No Substance Use Type: Marijuana Advance Directives: No Advance Directives Information Provided: Yes Do you have a plan to hurt others: No Plan service: No Current occupational status: disabled Cognitive needs: No Hearing needs: No Vision needs: No Physical Exam Vital Signs: Vital Signs: Last Vital Signs Temp 98.6 F 02/13/25 23:56 Pulse 85 02/13/25 23:56 Resp 17 02/13/25 23:56 BP 125/76 02/13/25 23:56 Pulse Ox 98 02/13/25 23:56 O2 Del Method Room Air 02/13/25 23:56 BMI result Body Mass Index 25.8 Const: Other: Appearance: Alert. Oriented X3. No acute distress. Eyes: Pupils equal, round and reactive to light. ENT: Pharynx normal. Neck: Normal inspection. Neck supple. No lymph nodes noted. No crepitus CVS: Normal heart rate and rhythm. Pulses normal. Normal S1 and S2 Respiratory: No respiratory distress. Breath sounds normal. No Wheezing. No rales Abdomen: Soft and nontender. No rigidity. No distention. Skin: Skin warm and dry. Normal skin color. Normal skin turgor. Extremities: No lower extremity edema. No Lacerations. No Rash Neuro: Oriented X 3. No motor deficit. No sensory deficit. Moving all extremities. No slurred speech. CN 2 through 12 grossly intact Psych: calm, cooperative, normal affect Medical Decision Making Medical Decision Making MDM Narrative: My interpretation of labs: No significant abnormality in patient's hematology, chemistry, levels of salicylates and acetaminophen negative, ETOH negative Patient denies SI or HI At this time, patient is here voluntarily, no SI, no HI, alert and oriented x3, cooperative. Section 12 is not indicated Care team evaluated the patient. At this time, patient is not SI, no HI, denies hallucinations. Patient admits to prior alcohol abuse. Patient states that he feels better now and would like to be discharged. Patient is alert and oriented x3, calm, cooperative, coherent, normal vitals. There is no reason to keep the patient on a Section 12. Per patient's request, patient being discharged. The care team we will arrange transport and follow-up behavioral health care visit. At this time, 23:59, patient being discharged Differential Diagnosis Differential Diagnoses: The differential diagnosis associated with the presentation includes (Schizophrenia, bipolar disorder, polysubstance abuse) Admission/Observation Consideration of admission/observation: Escalation of care including admission/observation considered (Patient waiting to be seen by the care team) Lab Data [facility] Lab Attestation statement: I reviewed the patient's lab results. 02/13/25 19:50 02/13/25 19:50 Labs: Lab Results 02/13/25 Range/Units 19:50 WBC 9.3 (4.8-10.8) X10*3/uL RBC 4.71 (4.60-5.80) X10*6/uL Hgb 14.9 (14.0-18.0) g/dl Hct 42.1 (42.0-52.0) % MCV 89.4 (80.0-98.0) fL MCH 31.6 (27.0-33.0) pg MCHC 35.4 (31.0-36.0) g/dl RDW 11.9 (11.0-16.0) % Plt Count 265 (160-400) X10*3/uL MPV 9.5 (9.4-12.4) fL Immature Gran % (Auto) 0.2 (0.0-0.4) % Neut % (Auto) 71.4 (45-73) % Lymph % (Auto) 18.4 L (20-40) % [place] % (Auto) 8.0 (2-11) % Eos % (Auto) 1.4 (0-4) % Baso % (Auto) 0.6 (0-2) % Lymph # (Auto) 1.7 (1.2-4.9) X10*3/uL [place] # (Auto) 0.7 (0.1-1.2) X10*3/uL Eos # (Auto) 0.1 (0.0-0.4) X10*3/uL Baso # (Auto) 0.1 (0.0-0.2) X10*3/uL Abs Immat Gran (auto) 0.02 (0.00-0.03) X10*3/uL Absolute Neuts (auto) 6.6 (2.0-8.3) x10*3/uL Absolute Nucleated RBC 0.000 (0.0-0.012) X10*3/uL Nucleated RBC % (auto) 0.0 (0.0-0.2) /100WBC Sodium 140 (135-145) mmol/L Potassium 3.8 (3.3-5.1) mmol/L Chloride 103 (96-108) mmol/L Carbon Dioxide 29 (22-29) mmol/L Anion Gap 12 (12-20) BUN 11 (9-16) mg/dL Creatinine 0.98 (0.5-1.4) mg/dL Estim Creat Clear Calc 97.8 Estimated GFR > 60 Random Glucose 118 H (60-115) mg/dL Calcium 9.7 D (8.4-10.2) mg/dL Total Bilirubin 1.2 H (0.0-1.0) mg/dL AST 21 (5-37) U/L ALT 21 (0-40) U/L Alkaline Phosphatase 58 (39-117) U/L Total Protein 7.4 (6.5-8.0) g/dL Albumin 4.8 (3.5-5.0) g/dL Salicylates < 5.0 L (15-30) mg/dL Acetaminophen < 3 (<30) mcg/mL Ethyl Alcohol < 10 mg/dL Critical Care Time Critical Care Time Critical Care Time: Yes Total Critical Care Time: 35 Attestation: I have personally provided critical care time. Time includes review of lab data, radiology results, discussion with consultants, and monitoring for potential decompensation. Intervention performed as documented. Discharge Plan Discharge Clinical Impression: Auditory hallucination Patient Disposition: Home, Self-Care Instructions: Hallucinations (ED) Additional Instructions: Please follow-up with your primary care physician tomorrow. If you have any worsening or new symptoms, please return to the emergency room or call 911 Prescriptions: No Action acetaminophen [Tylenol Arthritis Pain] 650 mg tablet extended release 650 mg PO Q12H 30 Days Qty: 60 0RF omeprazole 20 mg capsule,delayed release(DR/EC) 20 mg PO DAILY 30 Days Qty: 30 1RF No Known Home Meds Interventions: [place]-Suicide Risk Severity Scale Last Done: 02/13/25 18:03 ED Discharge Assessment Last Done: 02/13/25 23:56 Print Language: Ivorian
[2025-02-13 23:56] VITALS: BP 125/76; PULSE 85; RESP 17; TEMP 37; O2SAT 98
== END 2025-02-14 00:04 | disposition home or self-care (01) ==
PROVIDERS: Emergency Provider Emergency Medicine; PCP Physician Assistant
DX: R44.0 Auditory hallucinations (principal); F41.9 Anxiety disorder, unspecified; Z79.899 Other long term (current) drug therapy
CPT/HCPCS: 36415; 80053; 80143; 80179; 80307; 85025; 99284; S9485

== ENCOUNTER 2025-02-16 22:55 | Emergency (ER) | payer OTHER, SELFPAY ==
[2025-02-16 23:30] VITALS: BMI 24.4
[2025-02-16 23:35] VITALS: BP 127/73; PULSE 87; RESP 16; TEMP 36.8; O2SAT 100
--- NOTE | 2025-02-17 01:03 | ED.LOWEXIN ---
HPI - Extremity Injury (Lower) General Chief Complaint: Extremity Injury, Lower Stated Complaint: Bilateral foot pain Time Seen by Provider: 02/17/25 00:59 Source: patient and EMS Mode of arrival: EMS Limitations: no limitations History of Present Illness ED Provider: Dr. Jeanette Velásquez HPI Narrative: Patient comes to the emergency room complaining of bilateral foot pain. Patient states that he has been walking. Patient states that the bottom of his feet burn, denies any trauma Related Data Previous Rx's ?Medication ?Instructions ?Recorded acetaminophen 650 mg 650 mg PO Q12H 30 days #60 tabs 07/31/24 tablet,extended release (Tylenol Arthritis Pain) omeprazole 20 mg capsule,delayed 20 mg PO DAILY 30 days #30 caps 08/27/24 release clotrimazole 1 % topical cream 1 appl topical BID 2 weeks #90 02/17/25 (Athlete's Foot (clotrimazole)) grams Allergies Allergy/AdvReac Type Severity Reaction Status Date / Time No Known Allergies Allergy Verified 02/16/25 23:35 [No Known Allergies*] Review of Systems Review of Systems: Constitutional : No Weight loss, No Fever, No Chills, No Night Sweats, No Fatigue, No Malaise ENT/Mouth : No Hearing loss, No Ear Pain, No Nasal Congestion, No Sinus Pain, No Hoarseness, No sore throat, No Rhinorrhea, No Swallowing Difficulty Eyes: No Eye Pain, No Swelling, No Redness, No Foreign Body, No Discharge, No Vision Changes Cardiovascular : No Chest Pain, No SOB, No Dyspnea on Exertion, No Orthopnea, No Edema, No Palpitations Respiratory : No Cough, No Sputum, No Wheezing, No Smoke Exposure, No Dyspnea Gastrointestinal : No Nausea, No Vomiting, No Diarrhea, No Constipation, No abdominal Pain, No Hematochezia, No Melena Genitourinary : no irregular bleeding, No Dysuria, No Urinary Frequency, No Hematuria, No Urinary Incontinence, No Urgency, No Flank Pain, No Urinary Flow Changes, No Hesitancy Musculoskeletal : No joint pain, No Myalgias, No Joint Swelling Skin : Complaining of blistering on his feet bilaterally Neuro : No Weakness, No Numbness, No Paresthesias, No Loss of Consciousness, No Dizziness, No Headache Psych : No Anxiety/Panic, No Depression, No SI/HI/AH/VH, No Social Issues, Heme/Lymph: No Bruising, No Bleeding,No Lymphadenopathy Endocrine : No Polyuria, No Polydipsia, No Temperature Intolerance [facility] Past Medical History Medical History Anxiety Surgical History History of lumbar fusion Family History Family History Father OCD (obsessive compulsive disorder) History of ETOH abuse Mother Heart murmur, aortic Brother In good health Daughter In good health Social History Social History Housing: Apartment Unable to assess alcohol history related to: Unknown Alcohol intake: current Alcohol intake frequency: does not drink Alcohol type: hard liquor Patient Tobacco Use Status: Never used Tobacco e-Cigarette/Vaping Use: Never Used Second Hand Smoke Exposure: No Substance Use Type: Marijuana Advance Directives: No Advance Directives Information Provided: Yes Do you have a plan to hurt others: No Plan service: No Current occupational status: disabled Cognitive needs: No Hearing needs: No Vision needs: No Physical Exam Vital Signs: Vital Signs: Last Vital Signs Temp 98.3 F 02/16/25 23:35 Pulse 87 02/16/25 23:35 Resp 16 02/16/25 23:35 BP 127/73 02/16/25 23:35 Pulse Ox 100 02/16/25 23:35 O2 Del Method Room Air 02/16/25 23:35 BMI result Body Mass Index 24.4 Const: Other: Appearance: Alert. Oriented X3. No acute distress. Eyes: Pupils equal, round and reactive to light. ENT: Pharynx normal. Neck: Normal inspection. Neck supple. No lymph nodes noted. No crepitus CVS: Normal heart rate and rhythm. Pulses normal. Normal S1 and S2 Respiratory: No respiratory distress. Breath sounds normal. No Wheezing. No rales Abdomen: Soft and nontender. No rigidity. No distention. Skin: Skin warm and dry. Normal skin color. Normal skin turgor. Extremities: No lower extremity edema. Patient's socks were removed, both were wet. Both soles of feet are macerated, no obvious blisters. Patient has a bit of at this food in between his toes. Neuro: Oriented X 3. No motor deficit. No sensory deficit. Moving all extremities. No slurred speech. CN 2 through 12 grossly intact Psych: calm, cooperative, normal affect Medical Decision Making Medical Decision Making MDM Narrative: Physical exam with the patient, patient has athlete's foot but also patient needs to make sure that he keeps his feet dry. Discharge Plan Discharge Clinical Impression: Athlete's foot Patient Disposition: Home, Self-Care Instructions: Skin Yeast Infection (ED) Additional Instructions: Please follow-up with your primary care physician tomorrow. If you have any worsening or new symptoms, please return to the emergency room or call 911 Prescriptions: New clotrimazole [Athlete's Foot (clotrimazole)] 1 % cream 1 appl topical BID 14 Days Qty: 90 0RF No Action acetaminophen [Tylenol Arthritis Pain] 650 mg tablet extended release 650 mg PO Q12H 30 Days Qty: 60 0RF omeprazole 20 mg capsule,delayed release(DR/EC) 20 mg PO DAILY 30 Days Qty: 30 1RF Print Language: Uzbek
[2025-02-17 01:59] VITALS: BP 125/73; PULSE 95; RESP 16; TEMP 36.1; O2SAT 100
[2025-02-17 02:53] VITALS: BP 125/73; PULSE 95; RESP 16; TEMP 36.1; O2SAT 100
[2025-02-17 06:11] VITALS: BP 108/61; PULSE 81; RESP 16; TEMP 36.2; O2SAT 100
== END 2025-02-17 07:05 | disposition home or self-care (01) ==
PROVIDERS: Emergency Provider Emergency Medicine
DX: B35.3 Tinea pedis (principal); M79.672 Pain in left foot; M79.671 Pain in right foot
CPT/HCPCS: 99283; 99284

== ENCOUNTER 2025-04-29 14:55 | Emergency (ER) | payer OTHER, SELFPAY | END 2025-04-29 19:09 | disposition left against medical advice (07) | PROVIDERS: Emergency Provider Emergency Medicine; PCP Physician Assistant | DX: Z53.21 Procedure and treatment not carried out due to patient leaving prior to being seen by health care provider (principal); R10.9 Unspecified abdominal pain ==

== ENCOUNTER 2025-04-29 23:59 | Emergency (ER) | payer OTHER, SELFPAY ==
[2025-04-30 00:21] VITALS: RESP 16; BMI 28.7
[2025-04-30 00:24] VITALS: BP 133/87; PULSE 96; RESP 16; TEMP 36.8; O2SAT 98
--- NOTE | 2025-04-30 00:35 | ED.GENADULT ---
HPI - General Adult General Chief complaint: General Medical Stated complaint: needs medication Time Seen by Provider: 04/30/25 00:35 Source: patient and old records reviewed Mode of arrival: ambulatory Limitations: other (History of TBI) History of Present Illness ED Provider: Dr. Oma Neal HPI narrative: 50-year-old male with extensive psychiatric history including major depressive disorder with psychotic symptoms, intellectual delay, alcohol use disorder presenting with request for medication refill. Admits that he is supposed to get ?an injection every 90 days? and was due for this 3 days ago but has not had it yet. He can not tell me what this medication is or where he gets it filled. Can not tell me the last time he had the injection either. He denies physical symptoms at this time. Admits that he has ?chattering going on in his head?. No demand hallucinations. No visual hallucinations. Denies suicidal or homicidal ideation. Does have extensive history of suicidality with multiple suicide attempts. He denies any self-harm recently. Related Data Previous Rx's ?Medication ?Instructions ?Recorded acetaminophen 650 mg 650 mg PO Q12H 30 days #60 tabs 07/31/24 tablet,extended release (Tylenol Arthritis Pain) omeprazole 20 mg capsule,delayed 20 mg PO DAILY 30 days #30 caps 08/27/24 release clotrimazole 1 % topical cream 1 appl topical BID 2 weeks #90 02/17/25 (Athlete's Foot (clotrimazole)) grams Allergies Allergy/AdvReac Type Severity Reaction Status Date / Time No Known Allergies (No Known Allergy Verified 04/30/25 00:22 Allergies*) Review of Systems Review of Systems: Yes all other systems are reviewed and are negative (As per HPI) [facility] Past Medical History Source: old records reviewed and nursing notes reviewed Medical History Anxiety Surgical History History of lumbar fusion Family History Family History Father OCD (obsessive compulsive disorder) History of ETOH abuse Mother Heart murmur, aortic Brother In good health Daughter In good health Social History Social History (Reviewed 04/30/25 @ 03:34 by HAILEY Smith Housing: Apartment Unable to assess alcohol history related to: Unknown Alcohol intake: never Patient Tobacco Use Status: Never used Tobacco Smoked in Last 30 Days: Yes e-Cigarette/Vaping Use: Never Used Second Hand Smoke Exposure: No Use of substances other than those prescribed or required for medical reasons: No Substance Use Type: Marijuana Advance Directives: No Advance Directives Information Provided: Yes service: No Current occupational status: disabled Cognitive needs: No Hearing needs: No Vision needs: No Physical Exam ED Vital Signs: Vital Signs - 24 hr 04/30/25 00:21 04/30/25 00:24 04/30/25 07:53 Temperature 98.2 F 97.8 F Pulse Rate 96 82 Respiratory Rate 16 16 16 Blood Pressure 133/87 106/63 Pulse Oximetry 98 97 Oxygen Delivery Method Room Air Room Air BMI result Body Mass Index 28.7 GENERAL: Unkempt, no acute distress. SKIN: Normal skin color for ethnicity, warm, dry, no rashes noted. HEENT: Normocephalic, atraumatic, no stridor, posterior oropharynx nonerythematous, edentulous, EOMI. NECK: Soft, supple, full ROM, midline structures nontender, no step-offs, no deformities, no lymphadenopathy. CHEST: Heart regular rate and rhythm, no murmurs, symmetric chest rise and fall. PULMONARY: Clear to auscultation bilaterally, no labored breathing, no wheezes/rhales/ rhonchi. ABDOMINAL: Soft, nondistended, nontender, positive bowel sounds in all quadrants. : Deferred. MUSCULOSKELETAL: Normal tone, full range of motion, no deformities, no peripheral edema. NEURO: Alert and oriented x3, CN II through XII intact, equal strength and sensation bilateral upper and lower extremities, no focal neurologic deficits. PSYCHIATRIC: Flat affect, poor eye contact, withdrawn Course Course Course Narrative: Sophia Levine, 04/30/2025 @ 11:22AM: I assumed care of this patient this morning at change of shift. The patient is a 50-year-old male with a chronic mental illness who had presented to the emergency room complaining of auditory hallucinations. The patient had unremarkable vital signs and seemed medically stable. Labs are unremarkable. The patient was seen by the CARE team. The care team clinician was able to establish that the patient is well connected to [facility] and has a good relationship with outpatient services. It seems as though the patient may be appropriately discharged to follow up with outpatient providers. The patient seems comfortable with this plan. Medical Decision Making Medical Decision Making MDM Narrative: Patient presents with psychologic complaints. Differential diagnosis includes medication noncompliance, suicidal ideations, homicidal ideations, depression, anxiety, mood disorder, decompensated mental illnesses such as schizophrenia or bipolar disorder, among many others. Medical clearance protocol was initiated. 7:50 a.m. sign out to oncoming provider pending care team evaluation and final disposition. Differential Diagnosis Differential Diagnoses: The differential diagnosis associated with the presentation includes (As above) Admission/Observation Consideration of admission/observation: Escalation of care including admission/observation considered Lab Data 04/30/25 09:34 04/30/25 09:34 Labs: Lab Results 04/30/25 Range/Units 09:34 WBC 12.9 H (4.8-10.8) X10*3/uL RBC 4.59 L (4.60-5.80) X10*6/uL Hgb 14.5 (14.0-18.0) g/dl Hct 40.5 L (42.0-52.0) % MCV 88.2 (80.0-98.0) fL MCH 31.6 (27.0-33.0) pg MCHC 35.8 (31.0-36.0) g/dl RDW 13.2 (11.0-16.0) % Plt Count 232 (160-400) X10*3/uL MPV 10.3 (9.4-12.4) fL Immature Gran % (Auto) 0.3 (0.0-0.4) % Neut % (Auto) 81.5 H (45-73) % Lymph % (Auto) 8.3 L (20-40) % Mccone % (Auto) 8.3 (2-11) % Eos % (Auto) 1.3 (0-4) % Baso % (Auto) 0.3 (0-2) % Lymph # (Auto) 1.1 L (1.2-4.9) X10*3/uL Mccone # (Auto) 1.1 (0.1-1.2) X10*3/uL Eos # (Auto) 0.2 (0.0-0.4) X10*3/uL Baso # (Auto) 0.0 (0.0-0.2) X10*3/uL Abs Immat Gran (auto) 0.04 H (0.00-0.03) X10*3/uL Absolute Neuts (auto) 10.5 H (2.0-8.3) x10*3/uL Absolute Nucleated RBC 0.000 (0.0-0.012) X10*3/uL Nucleated RBC % (auto) 0.0 (0.0-0.2) /100WBC Sodium 138 (135-145) mmol/L Potassium 3.9 (3.3-5.1) mmol/L Chloride 102 (96-108) mmol/L Carbon Dioxide 26 (22-29) mmol/L Anion Gap 14 (12-20) BUN 14 (9-16) mg/dL Creatinine 1.10 (0.5-1.4) mg/dL Estim Creat Clear Calc 103.8 Estimated GFR > 60 Random Glucose 117 H (60-115) mg/dL Calcium 9.3 (8.4-10.2) mg/dL Total Bilirubin 1.4 H (0.0-1.0) mg/dL Direct Bilirubin 0.5 (0.0-0.5) mg/dL AST 20 (5-37) U/L ALT 13 (0-40) U/L Alkaline Phosphatase 66 (39-117) U/L Total Protein 7.6 (6.5-8.0) g/dL Albumin 4.8 (3.5-5.0) g/dL Salicylates < 5.0 L (15-30) mg/dL Urine Opiates Screen Not Detected (Not Detect) Ur Buprenorphine Scrn Not Detected (Not Detect) ng/mL Ur Oxycodone Screen Not Detected (Not Detect) ng/mL Urine Methadone Screen Not Detected (Not Detect) ng/mL Urine Fentanyl Screen Not Detected (Not Detect) Acetaminophen < 3 (<30) mcg/mL Ur Barbiturates Screen Not Detected (Not Detect) Ur Phencyclidine Scrn Not Detected (Not Detect) Ur Amphetamines Screen Not Detected (Not Detect) U Benzodiazepines Scrn Not Detected (Not Detect) Urine Cocaine Screen Not Detected (Not Detect) U Marijuana (THC) Screen Not Detected (Not Detect) Ethyl Alcohol < 10 mg/dL Discharge Plan Discharge Clinical Impression: Encounter for behavioral health screening Patient Disposition: Home, Self-Care Additional Instructions: Please follow up with your regular providers at [facility]. Also follow up with your primary care doctor. Return to the emergency room if you feel significantly worse. Prescriptions: No Action acetaminophen [Tylenol Arthritis Pain] 650 mg tablet extended release 650 mg PO Q12H 30 Days Qty: 60 0RF omeprazole 20 mg capsule,delayed release(DR/EC) 20 mg PO DAILY 30 Days Qty: 30 1RF clotrimazole [Athlete's Foot (clotrimazole)] 1 % cream 1 appl topical BID 14 Days Qty: 90 0RF Referrals: [facility] [Outside] Maxime Frias PA-C [Physician Asset Accountant, Internal Medicine] Print Language: [place] Citizen
--- NOTE | 2025-04-30 07:51 | PC.NURSE ---
This Rn assumed care of patient @ 0700. Patient was resting comfortably in bed, calm and cooperative. Denies SI/HI. Patient states the chatter in his head is still there but not as bad. VSS and up to date. Patient waiting to see CARE team
[2025-04-30 07:53] VITALS: BP 106/63; PULSE 82; RESP 16; TEMP 36.6; O2SAT 97
--- NOTE | 2025-04-30 08:59 | ECG_ITS ---
Test Reason : weakness Blood Pressure : */* mmHG Vent. Rate : 77 BPM Atrial Rate : 77 BPM P-R Int : 132 ms QRS Dur : 90 ms QT Int : 380 ms P-R-T Axes : 69 25 29 degrees QTcB Int : 430 ms Normal sinus rhythm Normal ECG When compared with ECG of 05-Jan-2025 21:00, No significant change was found Referred By: Eduard Levine Electronically Signed By: PEYTON ROMERO
[2025-04-30 09:38] LABS: MANUAL DIFF FLAG NO
[2025-04-30 09:41] LABS: Hematocrit 40.5 % (42.0-52.0); Hemoglobin 14.5 g/dl (14.0-18.0); Imm Gran Abs Auto 0.04 X10*3/uL (0.00-0.03); Imm Gran Pct Auto 0.3 % (0.0-0.4); Lymphocytes Absolute Auto 1.1 X10*3/uL (1.2-4.9); Mean Corpuscular HGB Conc 35.8 g/dl (31.0-36.0); Mean Corpuscular Hemoglobin 31.6 pg (27.0-33.0); Mean Corpuscular Volume 88.2 fL (80.0-98.0); NRBC Abs Auto 0.000 X10*3/uL (0.0-0.012); NRBC Pct Auto 0.0 /100WBC (0.0-0.2); Platelet Count 232 X10*3/uL (160-400); Red Blood Count 4.59 X10*6/uL (4.60-5.80); White Blood Count 12.9 X10*3/uL (4.8-10.8)
[2025-04-30 09:51] LABS: Cannabinoid Screen Urine Not Detected (Not Detect)
[2025-04-30 09:57] LABS: Anion Gap 14 (12-20); Blood Urea Nitrogen 14 mg/dL (9-16); Carbon Dioxide 26 mmol/L (22-29); Chloride 102 mmol/L (96-108); Creatinine Clr Calc Pharmacy 103.8; Estimated Glomerular Filt Rate > 60; Potassium 3.9 mmol/L (3.3-5.1); Sodium 138 mmol/L (135-145)
[2025-04-30 09:58] LABS: Acetaminophen LAB < 3 mcg/mL (<30); Alanine Aminotransferase 13 U/L (0-40); Albumin Level 4.8 g/dL (3.5-5.0); Alkaline Phosphatase 66 U/L (39-117); Aspartate Amino Transferase 20 U/L (5-37); Calcium 9.3 mg/dL (8.4-10.2); Salicylate < 5.0 mg/dL (15-30); Total Protein 7.6 g/dL (6.5-8.0)
[2025-04-30 11:32] VITALS: BP 121/74; PULSE 77; RESP 20; TEMP 36.9; O2SAT 99
== END 2025-04-30 11:33 | disposition home or self-care (01) ==
PROVIDERS: Emergency Medicine; Emergency Provider Emergency Medicine
DX: R53.1 Weakness (principal); F32.9 Major depressive disorder, single episode, unspecified; F10.90 Alcohol use, unspecified, uncomplicated; Y90.0 Blood alcohol level of less than 20 mg/100 ml; Z79.899 Other long term (current) drug therapy
CPT/HCPCS: 36415; 80048; 80076; 80143; 80179; 80307; 85025; 93005; 99284; S9485

== ENCOUNTER → 2025-04-30 08:59 | Outpatient (BNV) | payer OTHER, SELFPAY | PROVIDERS: Emergency Provider Emergency Medicine; Visit Provider Internal Medicine | DX: R53.1 Weakness (principal) | CPT/HCPCS: 93010 ==

== ENCOUNTER 2025-06-27 14:41 | Outpatient (AMB) | payer OTHER, SELFPAY ==
[2025-06-27 15:00] VITALS: BP 114/72; PULSE 83; TEMP 36.3; O2SAT 97; BMI 25.8
--- NOTE | 2025-06-27 15:00 | A.OFFPC_ITS ---
Vital Signs 06/27/25 15:00 Height 6 ft 3 in Intake Visit Reasons: follow up Allergies No Known Allergies (No Known Allergies*) Allergy (Verified 04/30/25 00:22) Tobacco use date assessed: 12/22/23 Dental Screening Dental Screen Date: 08/10/23 [facility] Medical History Anxiety Surgical History History of lumbar fusion Family History Father OCD (obsessive compulsive disorder) History of ETOH abuse Mother Heart murmur, aortic Brother In good health Daughter In good health Social History Housing: Apartment Unable to assess alcohol history related to: Unknown Alcohol intake: never Patient Tobacco Use Status: Never used Tobacco e-Cigarette/Vaping Use: Never Used Second Hand Smoke Exposure: No Substance Use Type: Marijuana service: No Current occupational status: disabled Cognitive needs: No Hearing needs: No Vision needs: No Questionnaire PHQ-9 Over the last 2 weeks, how often have you been bothered by any of the following problems? 1. Little interest or pleasure in doing things: not at all 2. Feeling down, depressed, or hopeless: not at all 3. Trouble falling or staying asleep, or sleeping too much: not at all 4. Feeling tired or having little energy: not at all 5. Poor appetite or overeating: not at all 6. Feeling bad about yourself - or that you are a failure or have let yourself or your family down: not at all 7. Trouble concentrating on things, such as reading the newspaper or watching television: not at all 8. Moving or speaking so slowly that other people could have noticed. Or the opposite - being so fidgety or restless that you have been moving around a lot more than usual: not at all 9. Thoughts that you would be better off or of hurting yourself in some way: not at all Total score: 0 Source: Developed by Drs. Junior Bee, Trinh Quesada, Clifford Hernandez and colleagues, with an educational elmira from [employer]. Thrive Questionnaire Date Thrive assessed: 12/22/23 I am a: Patient What is your living situation today?: I have a steady place to live Within the past 12 months, did the food you bought not last and you didn't have the money to get more?: Never true Within the past 12 months, did you worry whether your food would run out before you got money to buy more?: Never true Do you have trouble paying for medicines?: No Do you have trouble getting transportation to medical appointments?: No Do you have trouble paying your heating and electricity bill?: No Do you have trouble taking care of your child, family member or friend?: No Do you have trouble with day-to-day activities such as bathing, preparing meals, shopping, managing finances, etc.?: No Are you currently unemployed and looking for a job?: No Are you interested in more education?: No Please select the resources that you would like help with: None Currently or been in a relationship where the following occur: No concerns reported THRIVE Score: 0 AUDIT C Alcohol Use Questionnaire (AUDIT-C) 1. How often do you have a drink containing alcohol?: Never Total Score: 0 ANI-7 AMB Questionnaire ANI-7 Date ANI - 7 assessed: 05/03/23 Feeling nervous, anxious, or on edge: 0 = Not at all Not being able to stop or control worryin = Not at all Worrying too much about different things: 0 = Not at all Trouble relaxin = Not at all Being so restless that it is hard to sit still: 0 = Not at all Becoming easily annoyed or irritable: 0 = Not at all Feeling afraid as if something awful might happen: 0 = Not at all Total ANI-7 score (0-4 normal; 5-9 mild; 10-14 moderate; 15-21 severe): 0 Source: Developed by Drs. Junior Bee, Trinh Quesada, Clifford Hernandez and colleagues, with an educational elmira from [employer]. 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
--- NOTE | 2025-06-27 15:00 | A.OFFPC_ITS ---
Vital Signs 06/27/25 15:00 06/27/25 15:00 Height 6 ft 3 in 6 ft 3 in Weight 206 lb 2 oz BMI 25.8 BP 114/72 Blood Pressure Location Lt brachial Position Sitting Pulse 83 Pulse Source Pulse Oximeter Temp 97.3 F Temp Source Temporal Artery Scan Pulse Oximetry (%) 97 Oxygen Delivery Method Room Air Intake Visit Reasons: follow up Allergies No Known Allergies (No Known Allergies*) Allergy (Verified 06/27/25 15:08) Medication List - Last Reconciled 06/27/25 by Maxime Frias PA-C acetaminophen ER (Tylenol Arthritis Pain) 650 mg PO Q12H 30 days clotrimazole 1% (Athlete's Foot (clotrimazole)) 1 appl topical BID 2 weeks fluoxetine 20 mg PO DAILY folic acid 1 mg PO DAILY naltrexone 50 mg PO DAILY pantoprazole 40 mg PO DAILY propranolol 10 mg PO QAM risperidone 2 mg PO BEDTIME risperidone ER (Uzedy) 100 mg subcut [id number] Tobacco use date assessed: 06/27/25 Dental Screening Dental Screen Date: 06/27/25 Did you have a dental visit in the last 12 months?: No Did you have a dental problem in the last 6 months where you did not have access to dental care?: No Was dental information given to patient?: Patient has dentist HPI follow up HPI Details Patient is a 50 year-old male here today for follow-up visit. Patient has a past medical history significant for GERD and generalized anxiety disorder. .. GERD: Patient's GERD symptoms have been more evident at a slightly and has been taking more omeprazole that prescribed. Continues on pantoprazole with decent affect. .. Schizophrenia: Had a psychiatric outbreak this past summer and now seeing a psychiatrist. He is on injectable antipsychotic therapy along with the SSRI and risperidone and feels he is stable. 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 Alcohol use disorder: He is now seeing a psychiatrist and a mental therapist to a local program. He is on naltrexone daily. He does admit to still drinking 1- 2 beers per day .. Tobacco use disorder: He admits to smoking about a pack a day in his asking for nicotine patches to help him quit smoking. [facility] Medical History Anxiety Surgical History History of lumbar fusion Family History Father OCD (obsessive compulsive disorder) History of ETOH abuse Mother Heart murmur, aortic Brother In good health Daughter In good health Social History Housing: Apartment Unable to assess alcohol history related to: Unknown Alcohol intake: never Patient Tobacco Use Status: Current everyday Tobacco user Tobacco use type: Cigarette Cigarettes Per Day: 20 e-Cigarette/Vaping Use: Never Used Second Hand Smoke Exposure: No Substance Use Type: Marijuana service: No Current occupational status: disabled Cognitive needs: No Hearing needs: No Vision needs: No Questionnaire PHQ-9 Over the last 2 weeks, how often have you been bothered by any of the following problems? 1. Little interest or pleasure in doing things: not at all 2. Feeling down, depressed, or hopeless: not at all 3. Trouble falling or staying asleep, or sleeping too much: not at all 4. Feeling tired or having little energy: not at all 5. Poor appetite or overeating: not at all 6. Feeling bad about yourself - or that you are a failure or have let yourself or your family down: not at all 7. Trouble concentrating on things, such as reading the newspaper or watching television: not at all 8. Moving or speaking so slowly that other people could have noticed. Or the opposite - being so fidgety or restless that you have been moving around a lot more than usual: not at all 9. Thoughts that you would be better off or of hurting yourself in some way: not at all Total score: 0 Depression Screening Interpretation: Negative Depression Screening Done: Yes 06610 - PHQ-9 Billing: Yes Source: Developed by Drs. Junior Bee, Trinh Quesada, Clifford Hernandez and colleagues, with an educational elmira from [employer]. Thrive Questionnaire Date Thrive assessed: 06/27/25 I am a: Patient What is your living situation today?: I have a steady place to live Within the past 12 months, did the food you bought not last and you didn't have the money to get more?: Never true Within the past 12 months, did you worry whether your food would run out before you got money to buy more?: Never true Do you have trouble paying for medicines?: No Do you have trouble getting transportation to medical appointments?: No Do you have trouble paying your heating and electricity bill?: No Do you have trouble taking care of your child, family member or friend?: No Do you have trouble with day-to-day activities such as bathing, preparing meals, shopping, managing finances, etc.?: No Are you currently unemployed and looking for a job?: No Are you interested in more education?: No Please select the resources that you would like help with: None Currently or been in a relationship where the following occur: No concerns reported THRIVE Score: 0 AUDIT C Alcohol Use Questionnaire (AUDIT-C) 1. How often do you have a drink containing alcohol?: Never 3. How often do you have six or more drinks on one occasion?: Never Total Score: 0 ANI-7 AMB Questionnaire ANI-7 Date ANI - 7 assessed: 06/27/25 Feeling nervous, anxious, or on edge: 0 = Not at all Not being able to stop or control worryin = Not at all Worrying too much about different things: 0 = Not at all Trouble relaxin = Not at all Being so restless that it is hard to sit still: 0 = Not at all Becoming easily annoyed or irritable: 0 = Not at all Feeling afraid as if something awful might happen: 0 = Not at all Total ANI-7 score (0-4 normal; 5-9 mild; 10-14 moderate; 15-21 severe): 0 Source: Developed by Drs. Junior Bee, Trinh Quesada, Clifford Hernandez and colleagues, with an educational elmira from [employer]. ANI-7 Assessment Billing ANI-7 Assessment Tool: ANI-7 Assessment 24612 Review of Systems Const Denies headache(s) Eyes Denies loss of vision ENT Denies vertigo, Denies dizziness, Denies headache(s) and Denies sore throat Card Denies chest pain, Denies leg edema and Denies lightheadedness Resp Denies cough, Denies hemoptysis and Denies wheezing GI Denies abdominal pain, Denies melena, Denies constipation, Denies diarrhea and Denies vomiting Denies dysuria, Denies urinary frequency and Denies urinary urgency Musc Denies arthralgias, Denies joint swelling, Denies numbness and Denies tingling Neuro Denies Abnormal speech present, Denies behavioral changes, Denies vertigo, Denies dizziness, Denies headache(s), Denies loss of vision, Denies memory loss, Denies numbness and Denies tingling Psych Denies anxiety, Denies behavioral changes, Denies depression, Denies memory loss and Denies panic attacks Cedric/Lymph Denies easy bleeding and Denies easy bruising Aller/Immun Denies wheezing Physical exam (Primary Care) Vital Signs: Last Vital Signs Temp 97.3 F 06/27/25 15:00 Pulse 83 06/27/25 15:00 BP 114/72 06/27/25 15:00 Pulse Ox 97 06/27/25 15:00 Oxygen Delivery Method Room Air 06/27/25 15:00 BMI result Body Mass Index 25.8 Tobacco/Smoking Status: Tobacco use Status Tobacco use date assessed 06/27/25 06/27/25 15:04 Patient Tobacco Use Status Current everyday Tobacco 06/27/25 15:04 Tobacco use type Cigarette 06/27/25 15:04 e-Cigarette/Vaping Use Never Used 06/27/25 15:04 Are you ready to quit: No Tobacco cessation counseling provided: Yes Items discussed: Nicotine replacement Relapse Prevention: discussed the importance of a supportive environment, discussed negative mood or depression after quitting, weight gain after smoking is common and discussed dietary, exercise and/or lifestyle changes Number of minutes spent counselin CPT code: 42769 - 4-10 Minutes PHQ-9: PHQ-9 Score PHQ-9: Total score 0 06/27/25 15:04 Depression Screening Interpretation: Negative Thrive Assessment: Date of Thrive Assessment Date Thrive assessed 06/27/25 06/27/25 15:04 Currently or been in a relationship where the following occur: No concerns reported Const General: healthy appearing, no acute distress, alert and awake Nutritional Appearance: well nourished Orientation/consciousness: oriented to person, oriented to place and oriented to time HENMT Ears: TM's normal bilaterally General nose exam: Normal nasal mucous membranes and turbinates present Eyes Conjunctivae: conjunctivae normal Sclerae: sclerae normal Pupils: Equal, round and reactive pupils present Neck Neck: Yes no lymphadenopathy and Yes no JVD Thyroid: Thyroid normal Carotids: no bruits Resp Effort & Inspection: normal respiratory effort and not tachypneic Auscultation: no crackles, no rales, no rhonchi and no wheezes Cardio Rate: regular rate Rhythm: regular rhythm Heart sounds: no murmurs and normal S1 and S2 GI Palpation (GI): Soft to palpation, nontender, no hepatomegaly and no splenomegaly Auscultation: normal bowel sounds Skin General skin exam: no rashes or lesions noted and dry skin Neuro General: oriented to person, oriented to place and oriented to time Cranial nerves: Yes Equal, round and reactive pupils present Speech: No Abnormal speech present Gait exam (Neuro): Normal gait present Motor exam (neuro): no tremor noted Extrem Right upper extremity: full ROM Left upper extremity: full ROM Right lower extremity: full ROM; no edema Left lower extremity: full ROM; no edema Psych Mental Status: mental status grossly normal Speech and movement: Normal speech and movement present Affect: normal affect Attitude: cooperative Thought process: Normal thought process present Coding Level of Care Code Est Pt Level 4 (48442) Diagnoses Schizo-affective schizophrenia F25.9 Alcohol use disorder F10.90 Anxiety F41.9 Gastroesophageal reflux disease without esophagitis K21.9 Esophagitis presence: without esophagitis Tobacco dependence F17.200 Additional Codes ANI-7 Assessment Billing - ANI-7 Assessment Tool: ANI-7 Assessment 88723 ([id number]) PHQ-9 - 16946 - PHQ-9 Billing: Yes ([id number]) Vital Signs *Quality* - CPT code: 91084 - 4-10 Minutes ([id number]) Assessment & Plan Assessment & Plan (1) Schizo-affective schizophrenia: Code(s): F25.9 - Schizoaffective disorder, unspecified Category: Medical Plan: As per HPI patient has been diagnosed with schizophrenia, now seeing a psychiatrist in his on injectable therapy for his antipsychotic med. He feels he is stable at this time (2) Alcohol use disorder: Code(s): F10.90 - Alcohol use, unspecified, uncomplicated Category: Medical Plan: Patient admits to still drinking about 1 or 2 beers per day though no where near the amount he was drinking in the past. He still takes naltrexone daily. (3) Anxiety: Code(s): F41.9 - Anxiety disorder, unspecified Category: Medical Plan: Patient continues in the SSRI therapy and risperidone for his control of his anxiety. He feels his anxiety is fairly well controlled. (4) GERD (gastroesophageal reflux disease): Code(s): K21.9 - Gastro-esophageal reflux disease without esophagitis Category: Medical Qualifiers: Esophagitis presence: without esophagitis Qualified Code(s): K21.9 - Gastro-esophageal reflux disease without esophagitis Plan: Patient has a long history of GERD to which now he is using pantoprazole to reduce his GERD symptoms which has been effective (5) Tobacco dependence: Code(s): F17.200 - Nicotine dependence, unspecified, uncomplicated Category: Medical Plan: Patient admits to smoking about a pack of cigarettes per day in his interested in nicotine patches to help him cut down and quit smoking. Orders: Orders Comprehensive [place]. Panel Fast Today Z13.1 - Encounter for screening for diabetes mellitus Prostate Specific Antigen Scr Today Z12.5 - Encounter for screening for malignant neoplasm of prostate, Z13.1 - Encounter for screening for diabetes mellitus Complete Blood Count no Diff Today Z13.1 - Encounter for screening for diabetes mellitus Referrals Cologuard Test F17.200 - Nicotine dependence, unspecified, uncomplicated, Z12.11 - Encounter for screening for malignant neoplasm of colon Medications: New pantoprazole 40 mg PO DAILY 90 tabs 1RF 90 days K21.9 - Gastro-esophageal reflux disease without esophagitis nicotine 1 patch transdermal DAILY 28 ea 0RF 28 days F17.200 - Nicotine dependence, unspecified, uncomplicated nicotine 1 patch transdermal DAILY 14 ea 1RF 14 days F17.200 - Nicotine dependence, unspecified, uncomplicated
== END 2025-06-27 15:29 | disposition home or self-care (01) ==
LOC: HO.HMCH 14:42
PROVIDERS: PCP Physician Assistant; Visit Provider Physician Assistant
DX: F25.9 Schizoaffective disorder, unspecified (principal); F10.90 Alcohol use, unspecified, uncomplicated; F41.9 Anxiety disorder, unspecified; K21.9 Gastro-esophageal reflux disease without esophagitis; F17.200 Nicotine dependence, unspecified, uncomplicated

== ENCOUNTER → 2025-06-27 14:41 | Outpatient (BNVA) | payer OTHER, SELFPAY | PROVIDERS: PCP Physician Assistant; Visit Provider Physician Assistant | DX: F25.9 Schizoaffective disorder, unspecified (principal); F10.90 Alcohol use, unspecified, uncomplicated; F41.9 Anxiety disorder, unspecified; K21.9 Gastro-esophageal reflux disease without esophagitis; F17.210 Nicotine dependence, cigarettes, uncomplicated; Z79.899 Other long term (current) drug therapy; Z13.31 Encounter for screening for depression; Z13.39 Encounter for screening examination for other mental health and behavioral disorders | CPT/HCPCS: 96127; 99212 ==

== ENCOUNTER 2025-09-19 21:39 | Emergency (ER) | payer OTHER, SELFPAY ==
[2025-09-19 21:58] VITALS: BP 146/88; PULSE 113; O2SAT 98
[2025-09-19 22:08] VITALS: BMI 25.5
[2025-09-19 22:19] VITALS: BP 130/76; PULSE 94; RESP 16; TEMP 36.3; O2SAT 96
--- NOTE | 2025-09-19 22:39 | ED_ITS ---
HPI - Psych General Chief Complaint: Psychiatric Symptoms Stated Complaint: SI, Hallucinations Time Seen by Provider: 09/19/25 21:44 Source: patient and EMS Mode of arrival: EMS Limitations: no limitations History of Present Illness ED Provider: Dr. Jeanette Velásquez HPI Narrative: Patient comes to the emergency room reporting feeling suicidal and depressed. Patient states that he tried to commit suicide by ingesting 3 pills of Augmentin. Patient states that his PCP prescribed the antibiotics for hand cellulitis on 09/16/2025. At this time, patient denies using drugs or alcohol, denies HI. Denies nausea vomiting or diarrhea. Related Data Home Medications ?Medication ?Instructions ?Recorded ?Confirmed fluoxetine 20 mg capsule 20 mg PO DAILY 06/27/2503/10 folic acid 1 mg tablet 1 mg PO DAILY 06/27/2509/20 naltrexone 50 mg tablet 50 mg PO DAILY 06/27/2503/10 propranolol 10 mg tablet 10 mg PO QAM 06/27/25 risperidone 100 mg/0.28 mL 100 mg subcut [id number] 06/1709/20/25 subcutaneous extend release susp syringe (Uzedy) risperidone 2 mg tablet 2 mg PO BEDTIME 06/27/2503/10 Previous Rx's ?Medication ?Instructions ?Recorded acetaminophen 650 mg 650 mg PO Q12H 30 days #60 t abs 07/31/24 tablet,extended release (Tylenol Arthritis Pain) clotrimazole 1 % topical cream 1 appl topical BID 2 we eks #90 02/17/25 (Athlete's Foot (clotrimazole)) grams nicotine 14 mg/24 hr daily 1 patch transdermal DAILY 1 4 days 06/27/25 transdermal patch #14 ea nicotine 21 mg/24 hr daily 1 patch transdermal DAILY 2 8 days 06/27/25 transdermal patch #28 ea pantoprazole 40 mg tablet,delayed 40 mg PO DAILY 90 da ys #90 tabs 06/27/25 release amoxicillin 875 mg-potassium 1 tab PO BID 7 days #14 t abs 09/16/25 clavulanate 125 mg tablet Allergies Allergy/AdvReac Type Severity Reaction Status Date / Time No Known Allergies (No Known Allergy Verified 09/19/25 22:11 Allergies*) Review of Systems 2 Review of Systems: Constitutional : No Weight loss, No Fever, No Chills, No Night Sweats, No Fatigue, No Malaise ENT/Mouth : No Hearing loss, No Ear Pain, No Nasal Congestion, No Sinus Pain, No Hoarseness, No sore throat, No Rhinorrhea, No Swallowing Difficulty Eyes: No Eye Pain, No Swelling, No Redness, No Foreign Body, No Discharge, No Vision Changes Cardiovascular : No Chest Pain, No SOB, No Dyspnea on Exertion, No Orthopnea, No Edema, No Palpitations Respiratory : No Cough, No Sputum, No Wheezing, No Smoke Exposure, No Dyspnea Gastrointestinal : No Nausea, No Vomiting, No Diarrhea, No Constipation, No abdominal Pain, No Hematochezia, No Melena Genitourinary : no irregular bleeding, No Dysuria, No Urinary Frequency, No Hematuria, No Urinary Incontinence, No Urgency, No Flank Pain, No Urinary Flow Changes, No Hesitancy Musculoskeletal : No joint pain, No Myalgias, No Joint Swelling Skin : No Skin Lesions, No rash Neuro : No Weakness, No Numbness, No Paresthesias, No Loss of Consciousness, No Dizziness, No Headache Psych : No Anxiety/Panic, reports depression, SI attempt Heme/Lymph: No Bruising, No Bleeding,No Lymphadenopathy Endocrine : No Polyuria, No Polydipsia, No Temperature Intolerance [facility] Past Medical History Medical History Anxiety Surgical History History of lumbar fusion Family History Family History Father OCD (obsessive compulsive disorder) History of ETOH abuse Mother Heart murmur, aortic Brother In good health Daughter In good health Social History Social History Housing: Apartment Alcohol intake: never Patient Tobacco Use Status: Current everyday Tobacco user Tobacco use type: Cigarette Cigarettes Per Day: 20 Smoked in Last 30 Days: Yes e-Cigarette/Vaping Use: Never Used Second Hand Smoke Exposure: No Use of substances other than those prescribed or required for medical reasons: No Substance Use Type: Marijuana Advance Directives: No Advance Directives Information Provided: No service: No Current occupational status: disabled Cognitive needs: No Hearing needs: No Vision needs: No Physical Exam 2 Exam: Exam: Appearance: Alert. Oriented X3. No acute distress. Eyes: Pupils equal, round and reactive to light. ENT: Pharynx normal. Neck: Normal inspection. Neck supple. No lymph nodes noted. No crepitus CVS: Normal heart rate and rhythm. Pulses normal. Normal S1 and S2 Respiratory: No respiratory distress. Breath sounds normal. No Wheezing. No rales Abdomen: Soft and nontender. No rigidity. No distention. Skin: Skin warm and dry. Normal skin color. Normal skin turgor. Extremities: No lower extremity edema. No Lacerations. No Rash. Patient has several healing scratches in the hand, no cellulitis, no swelling Neuro: Oriented X 3. No motor deficit. No sensory deficit. Moving all extremities. No slurred speech. CN 2 through 12 grossly intact Psych: calm, cooperative, normal affect Vital Signs: Vital Signs: Last Vital Signs Temp 98.2 F 09/20/25 06:00 Pulse 96 09/20/25 06:00 Resp 16 09/19/25 22:19 BP 94/67 09/20/25 06:00 Pulse Ox 95 09/20/25 06:00 O2 Del Method Room Air 09/20/25 06:00 BMI result Body Mass Index 25.5 Course Course Course Narrative: Patient is on a Section 12 Care team consult pending Physician observation started at 22:40 Reevaluation(s) Reevaluation #1: Time: 06:02 Date: 09/20/25 Provider: Jim Molina MD Patient in physician observation for psychiatric evaluation.? No acute events reported overnight. No current complaints. VS stable.? Patient is in bed search status/pending CARE team evaluation. Will continue to monitor. Reevaluation #2: 09/20/2025 750 AM patient was seen by crisis he was cleared for discharge, this time we will end ED obs status Dr. Molina Medical Decision Making Medical Decision Making MDM Narrative: My interpretation of labs: No significant abnormality in patient's hematology and chemistry, toxicology negative for acetaminophen and salicylate levels. Urinalysis pending Patient remains on a Section 12 Differential Diagnosis Differential Diagnoses: The differential diagnosis associated with the presentation includes (Anxiety, depression, suicide attempt.) Admission/Observation Consideration of admission/observation: Escalation of care including admission/observation considered (Patient is on a Section 12, waiting to be seen by the care team to determine patient's disposition) Lab Data MDM Lab Attestation statement: I reviewed the patient's lab results. 09/19/25 22:17 09/19/25 22:17 Labs: Lab Results 09/19/25 09/19/25 Range/Units 22:17 23:34 WBC 6.2 (4.8-10.8) X10*3/uL RBC 4.48 L (4.60-5.80) X10*6/uL Hgb 14.2 (14.0-18.0) g/dl Hct 41.0 L (42.0-52.0) % MCV 91.5 (80.0-98.0) fL MCH 31.7 (27.0-33.0) pg MCHC 34.6 (31.0-36.0) g/dl RDW 11.7 (11.0-16.0) % Plt Count 251 (160-400) X10*3/uL MPV 10.1 (9.4-12.4) fL Immature Gran % (Auto) 0.2 (0.0-0.4) % Neut % (Auto) 70.1 (45-73) % Lymph % (Auto) 19.6 L (20-40) % Ralls % (Auto) 7.6 (2-11) % Eos % (Auto) 1.9 (0-4) % Baso % (Auto) 0.6 (0-2) % Lymph # (Auto) 1.2 (1.2-4.9) X10*3/uL Ralls # (Auto) 0.5 (0.1-1.2) X10*3/uL Eos # (Auto) 0.1 (0.0-0.4) X10*3/uL Baso # (Auto) 0.0 (0.0-0.2) X10*3/uL Abs Immat Gran (auto) 0.01 (0.00-0.03) X10*3/uL Absolute Neuts (auto) 4.4 (2.0-8.3) x10*3/uL Absolute Nucleated RBC 0.000 (0.0-0.012) X10*3/uL Nucleated RBC % (auto) 0.0 (0.0-0.2) /100WBC Sodium 140 (135-145) mmol/L Potassium 3.5 (3.3-5.1) mmol/L Chloride 107 (96-108) mmol/L Carbon Dioxide 24 (22-29) mmol/L Anion Gap 13 (12-20) BUN 10 (9-16) mg/dL Creatinine 0.92 (0.5-1.4) mg/dL Estim Creat Clear Calc 113.5 Estimated GFR > 60 Random Glucose 153 H (60-115) mg/dL Calcium 8.8 (8.4-10.2) mg/dL Total Bilirubin 0.5 (0.0-1.0) mg/dL AST 19 (5-37) U/L ALT 12 (0-40) U/L Alkaline Phosphatase 59 (39-117) U/L Total Protein 7.0 (6.5-8.0) g/dL Albumin 4.6 (3.5-5.0) g/dL Salicylates < 5.0 L (15-30) mg/dL Urine Opiates Screen Not Detected (Not Detect) Ur Buprenorphine Scrn Not Detected (Not Detect) ng/mL Ur Oxycodone Screen Not Detected (Not Detect) ng/mL Urine Methadone Screen Not Detected (Not Detect) ng/mL Urine Fentanyl Screen Not Detected (Not Detect) Acetaminophen < 3 (<30) mcg/mL Ur Barbiturates Screen Not Detected (Not Detect) Ur Phencyclidine Scrn Not Detected (Not Detect) Ur Amphetamines Screen Not Detected (Not Detect) U Benzodiazepines Scrn Not Detected (Not Detect) Urine Cocaine Screen Not Detected (Not Detect) U Marijuana (THC) Screen Not Detected (Not Detect) Ethyl Alcohol < 10 mg/dL Critical Care Time Critical Care Time Critical Care Time: Yes Total Critical Care Time: 35 Attestation: I have personally provided critical care time. Time includes review of lab data, radiology results, discussion with consultants, and monitoring for potential decompensation. Intervention performed as documented. Discharge Plan Discharge Clinical Impression: Depression Prescriptions: No Action acetaminophen [Tylenol Arthritis Pain] 650 mg tablet extended release 650 mg PO Q12H 30 Days Qty: 60 0RF amoxicillin-pot clavulanate 875-125 mg tablet 1 tab PO BID 7 Days Qty: 14 0RF clotrimazole [Athlete's Foot (clotrimazole)] 1 % cream 1 appl topical BID 14 Days Qty: 90 0RF naltrexone 50 mg tablet 50 mg PO DAILY risperidone 2 mg tablet 2 mg PO BEDTIME propranolol 10 mg tablet 10 mg PO QAM folic acid 1 mg tablet 1 mg PO DAILY fluoxetine 20 mg capsule 20 mg PO DAILY Uzedy 100 mg/0.28 mL suspension,extended rel syring 100 mg subcut [id number] pantoprazole 40 mg tablet,delayed release (DR/EC) 40 mg PO DAILY 90 Days Qty: 90 1RF nicotine 14 mg/24 hr patch 24 hour 1 patch transdermal DAILY 14 Days Qty: 14 1RF nicotine 21 mg/24 hr patch 24 hour 1 patch transdermal DAILY 28 Days Qty: 28 0RF Interventions: Hooper-Suicide Risk Severity Scale Last Done: 09/19/25 22:11 Print Language: Dominican
--- NOTE | 2025-09-19 23:12 | PC.NURSE ---
Took over care at 23:00, pt being seeing care team, awaiting deposition.
[2025-09-19 23:51] LABS: Cannabinoid Screen Urine Not Detected (Not Detect)
[2025-09-20 06:00] VITALS: BP 94/67; PULSE 96; TEMP 36.8; O2SAT 95
--- NOTE | 2025-09-20 07:55 | PC.NURSE ---
patient a&ox3, ambulatory with steady gait, rr equal/non labored, presently denies si/hi, care team followed up with patient this morning and will be discharging to home.
--- NOTE | 2025-09-20 07:57 | MHC.CARE ---
Pt does not meet the criteria for a higher level of care or present as an imminent risk. Pt denies SI, HI, and A/V/H. Pt will D/C to follow up with current providers. ED provider in agreement.
--- NOTE | 2025-09-20 08:25 | PC.NURSE ---
pt to discharge home [facility] patient resource booklet was given to patient for outpt resources outside of his regular providers.
[2025-09-20 08:40] VITALS: BP 107/66; PULSE 88; RESP 16; TEMP 36.7; O2SAT 95
== END 2025-09-20 08:41 | disposition home or self-care (01) ==
PROVIDERS: Emergency Provider Emergency Medicine; PCP Physician Assistant
DX: F32.A Depression, unspecified (principal); R45.851 Suicidal ideations; R44.3 Hallucinations, unspecified; F41.9 Anxiety disorder, unspecified; F17.210 Nicotine dependence, cigarettes, uncomplicated
CPT/HCPCS: 36415; 80053; 80143; 80179; 80307; 85025; 99285; S9485